=== PATIENT | male | born 1960 | race American Indian/Alaskan Native ===

== ENCOUNTER 2017-05-19 17:40 | Emergency (ER) | payer MEDICAID ==
[2017-05-19 19:45] LABS: Hematocrit 38.4 % (35.5-45.6); Hemoglobin 12.4 gm/dl (11.8-15.2); Mean Corpuscular HGB Conc 32 % (32-34); Mean Corpuscular Hemoglobin 26 pg (28-32); Mean Corpuscular Volume 79 fl (84-94); Platelet Count 225 K/mm3 (140-440); Red Blood Count 4.83 M/mm3 (3.65-5.03); Red Cell Distribution Width 15.5 % (13.2-15.2); White Blood Count 4.4 K/mm3 (4.5-11.0)
[2017-05-19 20:01] LABS: Anion Gap 17 mmol/L; BUN/Creatinine Ratio 13; Blood Urea Nitrogen 16 mg/dL (9-20); Calcium 8.9 mg/dL (8.4-10.2); Carbon Dioxide 27 mmol/L (22-30); Chloride 94.7 mmol/L (98-107); Potassium 4.5 mmol/L (3.6-5.0); Sodium 134 mmol/L (137-145)
[2017-05-19 20:04] LABS: Glucose 572 mg/dL (75-100)
[2017-05-19] MEDS ORDERED: NACL 0.9% 1000 ML 1,000 ML IV ONE (21:57)
--- NOTE | 2017-05-19 22:01 | Emergency Department Report ---
HPI - General Chief Complaint: Wound/Laceration Time Seen by Provider: 05/19/17 21:20 - HPI HPI: This is a 56-year-old male who presents to the emergency department with complaint of an ulcer on the right second toe and some small ones on the foot. He has a history of left below-knee amputation. The patient denies any significant discomfort or any fever but says that due to his history his daughter "made me come in" and she drove him in. He has a history of insulin-dependent diabetes, GERD. He does not have a primary care physician. No recent travel or sick contacts. He has not taken anything for her symptoms prior to presentation. He admits that he is not fully compliant with his insulin. ED Past Medical Hx - Past Medical History Previous Medical History?: Yes Hx Hypertension: Yes Hx Diabetes: Yes Hx GERD: Yes Additional medical history: LLL amputaion,poor vision - Surgical History Past Surgical History?: No Additional Surgical History: LLLA - Social History Smoking Status: Former Smoker - Medications Home Medications: Home Medications Medication Instructions Recorded Confirmed Last Taken Type Sulfamethoxazole/Trimethoprim 1 each PO BID #14 tablet 05/20/17 Unknown Rx [Bactrim DS TAB] ED Review of Systems ROS: Stated complaint: RIGHT FOOT INJURY/PAIN Other details as noted in HPI Comment: All other systems reviewed and negative Constitutional: denies: chills, fever Eyes: denies: eye pain, eye discharge, vision change ENT: denies: ear pain, throat pain Respiratory: denies: cough, shortness of breath, wheezing Cardiovascular: denies: chest pain, palpitations Endocrine: increased thirst. denies: unexplained weight loss Gastrointestinal: denies: nausea, vomiting Genitourinary: denies: urgency, dysuria Musculoskeletal: denies: back pain, joint swelling, arthralgia Skin: lesions (right second toe ulcer). denies: pruritus Neurological: denies: headache, weakness, paresthesias Physical Exam - Physical Exam Vital Signs: Vital Signs 05/19/17 19:04 Temperature 99.1 F Pulse Rate 94 H Respiratory 18 Rate Blood Pressure 153/89 O2 Sat by Pulse 98 Oximetry Physical Exam: GENERAL: The patient is well-developed well-nourished. HENT: Normocephalic. Atraumatic. Patient has moist mucous membranes. EYES: Extraocular motions are intact. Pupils equal reactive to light bilaterally. NECK: Supple. Trachea is midline. CHEST/LUNGS: Clear to auscultation. There is no respiratory distress noted. HEART/CARDIOVASCULAR: Regular. There is no tachycardia. There is no gallop rub or murmur. ABDOMEN: Abdomen is soft, nontender. Patient has normal bowel sounds. There is no abdominal distention. SKIN: There is a small ulcer to the pad of the right second toe. There does not appear to be any surrounding erythema and there is no bleeding, weeping or drainage. NEURO: The patient is awake, alert, and oriented. The patient is cooperative. The patient has no focal neurologic deficits. The patient has normal speech. MUSCULOSKELETAL: There is no tenderness or deformity. Chronic left below knee amputation. There is no evidence of acute injury. ED Course Vital Signs 05/19/17 19:04 Temperature 99.1 F Pulse Rate 94 H Respiratory 18 Rate Blood Pressure 153/89 O2 Sat by Pulse 98 Oximetry ED Medical Decision Making - Lab Data Result diagrams: 05/19/17 19:28 05/19/17 19:28 - Radiology Data Radiology results: image reviewed interpreted by me: X-ray of the toes of the right foot does not show any fracture, dislocation or any signs of osteomyelitis. - Medical Decision Making The patient does have a small ulcer to the right second toe. X-ray was done but it is not showing any signs of osteomyelitis and there is no signs of any cellulitis. The CBC did not show any leukocytosis. Patient does show a very elevated blood sugar of about 550. There is no elevated anion gap and there is no venous acidosis and therefore the patient does not appear to be in diabetic ketoacidosis. An IV was placed and the patient was given IV insulin and a liter of IV fluid. Upon reevaluation his blood sugar came down to about 180. Vital signs stable. His course. He did have some hypertension but it came down to a reasonable level without any further medication. He appears safe for discharge home at this time. He was given human service specialist for the toe ulcer and because he is diabetic and needs good follow-up. He has been given a referral for primary care. He has been encouraged to be more compliant with his insulin and do blood sugar checks and we discussed dietary changes. He was placed on antibiotics to make sure the ulcer does not worsen or return in 2 abscess or worsening infection. He will return to the ER with any worsening of symptoms or any acute distress. Discharge instructions were given while in the emergency department and all his questions have been answered. - Differential Diagnosis ulcer, osteomyelitis, diabetic ketoacidosis, HHNK Critical Care Time: No Critical care attestation.: If time is entered above; I have spent that time in minutes in the direct care of this critically ill patient, excluding procedure time. ED Disposition Clinical Impression: Hyperglycemia due to type 1 diabetes mellitus Hypertension Qualifiers: Hypertension type: essential hypertension Qualified Code(s): I10 - Essential ( primary) hypertension Toe ulcer due to DM Qualifiers: Diabetes mellitus type: type 1 Laterality: right Non-pressure ulcer stage: unspecified non-pressure ulcer stage Qualified Code(s): E10.621 - Type 1 diabetes mellitus with foot ulcer Disposition: TO HOME OR SELFCARE Is pt being admited?: No Condition: Stable Instructions: Diabetic Foot Ulcers (ED), Hypertension (ED), Diabetic Hyperglycemia (ED) Additional Instructions: Please follow up with a primary care physician as well as a human service specialist and I will give the referrals for both. Take the antibiotics as prescribed. Take your insulin regularly and check your blood sugar. Try to stay away from foods that are high in sugar, carbohydrates and starches. Return to the emergency Department with any worsening of your symptoms or any acute distress. Prescriptions: Sulfamethoxazole/Trimethoprim [Bactrim DS TAB] 1 each PO BID #14 tablet Referrals: GUNJAN LANIER MD [Primary Care Provider] - 3-5 Days VIKTORIA CARREON MD [Staff Physician] - 3-5 Days MARTINEZ CISNEROS MD [Staff Physician] - 3-5 Days [facility] [Outside] - 3-5 Days Time of Disposition: 01:16
[2017-05-20 00:42] LABS: Bilirubin,Urine NEG (Negative); Blood,Urine SM (Negative); Ketones,Urine NEG (Negative); Leukocyte Esterase,Urine NEG (Negative); Nitrite,Urine NEG (Negative); Urobilinogen,Urine < 2.0 mg/dL (<2.0); WBC,Urine < 1.0 /HPF (0.0-6.0)
[2017-05-20] MEDS ORDERED: APRESOLINE IV ONE (01:13)
[2017-05-20] MEDS ORDERED: BACTRIM DS PO ONE (01:15)
[2017-05-20 01:22] VITALS: BP 144/79
--- NOTE | 2017-05-20 10:31 | XRay Report ---
RIGHT TOES, 3 VIEWS History: Right second toe pain, concern for infection. Findings: No comparison. There is normal bone mineralization. No evidence for fracture, erosive joint pathology or bony destruction. The second toe is within normal limits. No signs of osteomyelitis on x-ray. Impression: Unremarkable right toes.
== END 2017-05-20 01:46 | disposition home or self-care (01) ==
LOC: ED 17:40
DX: E10.65 Type 1 diabetes mellitus with hyperglycemia (principal); E10.621 Type 1 diabetes mellitus with foot ulcer; I10 Essential (primary) hypertension; K21.9 Gastro-esophageal reflux disease without esophagitis; Z87.891 Personal history of nicotine dependence
CPT/HCPCS: 36415; 73660; 80048; 81001; 82805; 82962; 85027; 96361; 96374; 99284; J7030; J1815

== ENCOUNTER 2018-11-18 11:14 | Inpatient (IN) | payer MEDICAID ==
[2018-11-18 11:53] LABS: Basophils # (Auto) 0.1 K/mm3 (0.0-0.1); Basophils % (Auto) 1.1 % (0.0-1.8); Eosinophils # (Auto) 0.4 K/mm3 (0.0-0.4); Hematocrit 32.2 % (35.5-45.6); Hemoglobin 10.7 gm/dl (11.8-15.2); Lymphocytes # (Auto) 1.3 K/mm3 (1.2-5.4); Lymphocytes % (Auto) 25.9 % (13.4-35.0); Mean Corpuscular HGB Conc 33 % (32-34); Mean Corpuscular Volume 74 fl (84-94); Monocytes # (Auto) 0.7 K/mm3 (0.0-0.8); Monocytes % (Auto) 13.3 % (0.0-7.3); Platelet Count 260 K/mm3 (140-440); Red Blood Count 4.34 M/mm3 (3.65-5.03); Red Cell Distribution Width 18.5 % (13.2-15.2)
--- NOTE | 2018-11-18 11:57 | XRay Report ---
PROCEDURE: XR CHEST ROUTINE 2V TECHNIQUE: PA and lateral chest radiographs were obtained. HISTORY: Dyspnea COMPARISONS: None. FINDINGS: No mediastinal shift. Cardiac silhouette is not enlarged. No pneumothorax. Bilateral pleural effusi ons and lower lung airspace disease. No acute skeletal finding. IMPRESSION: Bibasilar airspace disease and pleural effusions. Radiographic follow-up to resolution is recommended . This document is electronically signed by Freddy Figueredo MD., Nov 18 2018 11:55:36 AM ET
[2018-11-18 12:03] LABS: INR 0.95 (0.87-1.13)
[2018-11-18 12:04] LABS: Partial Thromboplastin Time 28.2 Sec. (24.2-36.6)
[2018-11-18 12:16] LABS: Calcium 8.1 mg/dL (8.4-10.2)
--- NOTE | 2018-11-18 12:20 | Emergency Department Report ---
ED Shortness of Breath HPI - General Chief Complaint: Dyspnea/Respdistress Stated Complaint: SOB Time Seen by Provider: 11/18/18 11:19 Source: EMS Mode of arrival: Stretcher Limitations: No Limitations - History of Present Illness Initial Comments: Patient is a 58-year-old -[place] male with past medical history of hypertension diabetes. Left below-knee" who is presenting with shortness of breath. Patient states he's had issues with shortness of breath for approximately one week. Patient states that he did see his primary care physician several days ago and did mention this and his primary care physician wanted him to come to the hospital at that time but he declined. He recently restarted on Lasix for some right lower extremity edema. Patient states he's had this in the past. Patient denies having a diagnosis of congestive heart failure. Patient feels as though he may have pneumonia he's had a nonproductive cough for the last several days. Patient also has some orthopnea as well. Patient denies any chest pain nausea vomiting or diarrhea. Patient states that he has had some chills. Consistency: constant Improves With: nothing Worsens With: lying flat, exertion, movement, coughing - Related Data Previous Rx's Medication Instructions Recorded Last Taken Type Sulfamethoxazole/Trimethoprim 1 each PO BID #14 tablet 05/20/17 Unknown Rx [Bactrim DS TAB] Allergies Allergy/AdvReac Type Severity Reaction Status Date / Time No Known Allergies Allergy Unverified 05/19/17 19:06 ED Review of Systems ROS: Stated complaint: SOB Other details as noted in HPI Comment: All other systems reviewed and negative ED Past Medical Hx - Past Medical History Hx Hypertension: Yes Hx Diabetes: Yes Hx GERD: Yes Additional medical history: LLL amputaion,poor vision - Surgical History Additional Surgical History: LLLA - Medications Home Medications: Home Medications Medication Instructions Recorded Confirmed Last Taken Type Sulfamethoxazole/Trimethoprim 1 each PO BID #14 tablet 05/20/17 Unknown Rx [Bactrim DS TAB] ED Physical Exam - General Limitations: No Limitations General appearance: alert, in no apparent distress - Head Head exam: Present: atraumatic, normocephalic - Eye Eye exam: Present: normal appearance - ENT ENT exam: Present: mucous membranes moist - Neck Neck exam: Present: normal inspection - Respiratory Respiratory exam: Present: normal lung sounds bilaterally, rales, rhonchi (bibasilar). Absent: respiratory distress, wheezes, chest wall tenderness - Cardiovascular Cardiovascular Exam: Present: regular rate, normal rhythm, normal heart sounds. Absent: systolic murmur, diastolic murmur, rubs, gallop - GI/Abdominal GI/Abdominal exam: Present: soft, normal bowel sounds. Absent: distended, tenderness, guarding - Rectal Rectal exam: Present: deferred - Extremities Exam Extremities exam: Present: normal inspection, other (H and with a left below- knee amputation with prosthesis. His right lower extremity does show 3+ edema and hyperpigmentation from the midcalf down) - Back Exam Back exam: Present: normal inspection - Neurological Exam Neurological exam: Present: alert, oriented X3 - Psychiatric Psychiatric exam: Present: normal affect, normal mood - Skin Skin exam: Present: warm, dry, intact, normal color. Absent: rash ED Course Vital Signs 11/18/18 13:01 Temperature 98.9 F Pulse Rate 90 Respiratory 20 Rate Blood Pressure 182/102 [Right] O2 Sat by Pulse 92 Oximetry ED Medical Decision Making - Lab Data Result diagrams: 11/18/18 11:36 11/18/18 11:36 - EKG Data -: EKG Interpreted by Ct - EKG Data 11/18/18 13:06 EKG shows sinus rhythm, rate of 85 axis normal intervals are normal. There is evidence of anterior infarct which is old as there are Q waves present in V1 through V3 There are T-wave inversions laterally. There are no acute ST elevations or depressions. Time of interpretation is 1146. - Radiology Data [facility] [address] [place] [address] XRay Report Signed Patient: SURENDRA MILLER MR#: [id number] : Acct:[id number] Age/Sex: 58 / M ADM Date: 11/18/18 Loc: ED Attending Dr: Ordering Physician: MAHOGANY HUNTER MD Date of Service: 11/18/18 Procedure(s): XR chest routine 2V Accession Number(s): [id number] cc: MAHOGANY HUNTER MD Fluoro Time In Minutes: PROCEDURE: XR CHEST ROUTINE 2V TECHNIQUE: PA and lateral chest radiographs were obtained. HISTORY: Dyspnea COMPARISONS: None. FINDINGS: No mediastinal shift. Cardiac silhouette is not enlarged. No pneumothorax. Bilateral pleural effusions and lower lung airspace disease. No acute skeletal finding. IMPRESSION: Bibasilar airspace disease and pleural effusions. Radiographic follow-up to resolution is recommended. This document is electronically signed by Freddy Omer MD., Nov 18 2018 11:55:36 AM ET Transcribed By: MELINDA Dictated By: FREDDY OMER MD Electronically Authenticated By: FREDDY OMER MD Signed Date/Time: 11/18/18 1157 DD/ 1126 TD/TT: 11/18/18 1126 - Medical Decision Making Patient is a 58-year-old Male who is presenting with dyspnea with exertion shortness of breath. The patient was started on to his laxatives O2 sats 99%. Patient did show some mild hypertension was given labetalol. X-ray shows bilateral pleural effusions likely secondary to CHF as his BNP is elevated. Patient is given Lasix and has started to diurese. Patient does not have a ec hocardiogram and does not per history have a history of echocardiogram and he can remember. Patient will be admitted to the hospitalist service at this time. Critical Care Time: Yes (30) Critical care attestation.: If time is entered above; I have spent that time in minutes in the direct care of this critically ill patient, excluding procedure time. ED Disposition Clinical Impression: Acute exacerbation of CHF (congestive heart failure) Qualifiers: Heart failure type: unspecified Qualified Code(s): I50.9 - Heart failure, unspecified Disposition: OP ADMIT IP TO THIS HOSP Is pt being admited?: Yes Does the pt Need Aspirin: No Condition: Stable Time of Disposition: 13:09
[2018-11-18] MEDS ORDERED: LASIX IV ONE (12:59)
[2018-11-18] MEDS ORDERED: NORMODYNE IV ONE (13:05)
--- NOTE | 2018-11-18 13:35 | History and Physical Report ---
History of Present Illness Chief complaint: I cant catch my breath History of present illness: 58 YO Male with HTN, DM, GERD presents to ED for evaluation. Pt states that he has experienced shortness of breath over the past 1 week, with worsening symptoms over the past 3 days. Pt acknowledges decreased exercise tolerance, dypsnea on exertion, dypsnea at rest, Orthopnea/PND, leg swelling, and elevated SBP. Pt was seen an evaluated by his PCP over the past 1 week, and was instructed to seek further medical care at the time. Pt returned home, with as the aforementioned symptoms worsened- the patient decided to seek further care. EMS notified, and upon arrival the patient was found to be in distress. Pt transported to [facility]. Pt seen and evaluated in ED and found to have symptoms consistent with CHF Decompensation, ARF, as well as Hypertensive Urgency. Pt denies fever, chills, CP, Palpitations, NVD, Trauma, Skin Rash, BRBPR, productive cough, unintentional weight loss, night sweats, prolonged travel/immobility, Individual/Family history of DVT/PT/Blood Clotting Disorder, unilateral leg swelling, hemoptysis, or recent ill contacts. Pt admitted to telemetry. Cardiology consulted in ED. Nephrology consulted in ED. Past History Past Medical History: diabetes, GERD, hypertension Past Surgical History: No surgical history, Other (reviewedd) Social history: . denies: smoking, alcohol abuse, prescription drug abuse Family history: diabetes, hypertension Medications and Allergies Allergies Allergy/AdvReac Type Severity Reaction Status Date / Time No Known Allergies Allergy Unverified 05/19/17 19:06 Home Medications Medication Instructions Recorded Confirmed Last Taken Type Sulfamethoxazole/Trimethoprim 1 each PO BID #14 tablet 05/20/17 Unknown Rx [Bactrim DS TAB] Review of Systems Constitutional: no weight loss, no weight gain, no fever, no chills Ears, nose, mouth and throat: no ear pain, no ear discharge, no tinnitis, no decreased hearing, no nose pain Cardiovascular: orthopnea, shortness of breath, dyspnea on exertion, paroxysmal nocturnal dyspnea, high blood pressure, leg edema, decreased exercise tolerance, no palpitations, no syncope Respiratory: no cough, no cough with sputum, no excessive sputum, no hemoptysis Gastrointestinal: no nausea, no vomiting, no diarrhea, no constipation, no change in bowel habits Genitourinary Male: no hematuria, no flank pain, no discharge, no urinary frequency, no urinary hesitancy Rectal: no pain, no incontinence, no bleeding Musculoskeletal: no neck stiffness, no neck pain, no shooting arm pain, no arm numbness/tingling Integumentary: no rash, no pruritis, no redness, no sores, no wounds, no jaundice Neurological: no head injury, no paralysis, no parathesias, no tingling, no seizures, no syncope Psychiatric: no anxiety, no memory loss, no change in sleep habits, no sleep disturbances, no insomnia, no hypersomnia, no change in appetite Endocrine: no cold intolerance, no heat intolerance, no polyphagia, no excessive thirst, no polydipsia, no polyuria, no nocturia Hematologic/Lymphatic: no easy bruising, no easy bleeding, no lymphadenopathy, no lymphedema Allergic/Immunologic: no urticaria, no persistent infections, no anaphylaxis, no angioedema Exam - Constitutional Vitals: Temp Pulse Resp BP Pulse Ox 98.9 F 90 20 182/102 92 11/18/18 13:01 11/18/18 13:01 11/18/18 13:01 11/18/18 13:01 11/18/18 13:01 General appearance: Present: mild distress - EENT Eyes: Present: PERRL ENT: hearing intact, clear oral mucosa - Neck Neck: Present: supple, normal ROM - Respiratory Respiratory effort: normal Respiratory: bilateral: CTA - Cardiovascular Heart Sounds: Present: S1 & S2. Absent: rub, click - Extremities Extremities: pulses symmetrical Extremity abnormal: edema Peripheral Pulses: within normal limits - Abdominal General gastrointestinal: Present: soft, non-tender, non-distended, normal bowel sounds Male genitourinary: Present: normal - Integumentary Integumentary: Present: clear, warm, dry - Musculoskeletal Musculoskeletal: gait normal, strength equal bilaterally - Psychiatric Psychiatric: appropriate mood/affect, intact judgment & insight - Neurologic Neurologic: CNII-XII intact, moves all extremities Results - Labs CBC & Chem 7: 11/18/18 11:36 11/18/18 11:36 Labs: Abnormal lab results 11/18/18 11/18/18 Range/Units 11:36 11:36 Hgb 10.7 L (11.8-15.2) gm/dl Hct 32.2 L (35.5-45.6) % MCV 74 L (84-94) fl MCH 25 L (28-32) pg RDW 18.5 H (13.2-15.2) % [place] % (Auto) 13.3 H (0.0-7.3) % Eos % (Auto) 8.0 H (0.0-4.3) % Carbon Dioxide 21 L (22-30) mmol/L BUN 26 H (9-20) mg/dL Creatinine 2.6 H (0.8-1.5) mg/dL Glucose 154 H (75-100) mg/dL Calcium 8.1 L (8.4-10.2) mg/dL NT-Pro-B Natriuret Pep 7846 H (0-900) pg/mL Assessment and Plan - Patient Problems (1) CHF (congestive heart failure) Current Visit: Yes Status: Acute Qualifiers: Heart failure type: systolic Heart failure chronicity: acute Qualified Code(s): I50.21 - Acute systolic (congestive) heart failure Plan to address problem: Admit to telemetry, cardiology consulted in ED, Echo, strict I/O, daily weight, bnp, VQ scan, supplemental oxygen, thyroid panel, magnesium level, afterload reduction, diuresis, monitor uop q shift. (2) ARF (acute renal failure) with tubular necrosis Current Visit: Yes Status: Acute Plan to address problem: Urinalysis, monitor uop q shift, strict I/O, bmp to monitor serum creatnine, Nephrology consulted, renal ultrasound, urine electrolytes, (3) Hypertensive urgency, malignant Current Visit: Yes Status: Acute Plan to address problem: monitor BP q shift, continue medical management, Lisinopril and metoprolol, IV hydralazine prn for SBP >155. (4) Diabetes Current Visit: Yes Status: Acute Plan to address problem: ADA diet, insulin, accu check, hypoglycemia protocol (5) DVT prophylaxis Current Visit: Yes Status: Acute Plan to address problem: SCD to BLE while in bed,
[2018-11-18] MEDS ORDERED: ZOFRAN IV PRN (13:41)
[2018-11-18] MEDS ORDERED: SODIUM CHLORIDE FLUSH SYRINGE 10 ML IV PRN (13:41)
[2018-11-18] MEDS ORDERED: APRESOLINE IV PRN (15:55)
[2018-11-18] MEDS ORDERED: D50W (25GM) Syringe IV PRN (16:00)
[2018-11-18] MEDS ORDERED: MORPHINE IV PRN (16:04)
[2018-11-18] MEDS: HumuLIN R SUB-Q SCH ×2 (16:20→22:13)
--- NOTE | 2018-11-18 16:24 | Nuclear Medicine Report ---
PROCEDURE: NM LUNG SCAN PERF/VENT TECHNIQUE: 5.6 mCi Tc-99m MAA was injected IV for pulmonary perfusion imaging in multiple projection s. 12.8 mCi Xenon-133 was inhaled for pulmonary ventilation imaging in multiple projections. HISTORY: Dyspnea COMPARISONS: Chest x-ray November 18, 2018. FINDINGS: Ventilation: Uniform. Perfusion: Small subsegmental perfusion deficits in both lungs. Unmatched. Prominent cardiac silhouette. Blunted bilateral costophrenic angles suggests effusion. IMPRESSION: * Based on the PIOPED study, findings represent low probability for PE. * Suspect cardiomegaly. * Possible bilateral pleural effusions. This document is electronically signed by Kelechi Oliver MD., Nov 18 2018 04:22:20 PM ET
[2018-11-18] MEDS: PERCOCET 5/325 PO PRN ×2 (16:34→22:31)
[2018-11-18] MEDS ORDERED: PERCOCET 5/325 ONE (16:34)
[2018-11-18] MEDS: PEPCID PO SCH (16:35)
[2018-11-18] MEDS ORDERED: PEPCID ONE (16:35)
[2018-11-18 17:04] LABS: Free T4 (Free Thyroxine) 0.96 ng/dL (0.76-1.46)
[2018-11-18] MEDS: LASIX PO SCH (18:07)
[2018-11-18] MEDS ORDERED: PEPCID PO SCH (22:00)
[2018-11-18] MEDS: SODIUM CHLORIDE FLUSH SYRINGE 10 ML IV SCH (22:13)
[2018-11-18] MEDS: HEPARIN SUB-Q SCH (22:14)
[2018-11-18] MEDS: LOPRESSOR PO SCH (22:14)
[2018-11-18] MEDS: TESSALON PERLES PO SCH (22:17)
[2018-11-19] MEDS: TYLENOL PO PRN ×3 (00:36→22:23)
[2018-11-19 01:40] LABS: Creatinine,Urine 112.6 mg/dL (0.1-20.0)
[2018-11-19] MEDS ORDERED: LEVAQUIN 750MG/150ML 750 MG/150 ML BAG IV ONE (01:48)
[2018-11-19 01:53] LABS: Bacteria,Urine 1+ /HPF (Negative); Bilirubin,Urine NEG (Negative); Blood,Urine MOD (Negative); Color,Urine Yellow (Yellow); Hyaline Casts,Urine 13 /LPF; Mucus,Urine FEW /HPF; Protein,Urine >500 mg/dL (Negative); Urobilinogen,Urine < 2.0 mg/dL (<2.0)
[2018-11-19] MEDS: PERCOCET 5/325 PO PRN ×3 (04:05→20:30)
[2018-11-19] MEDS: LASIX PO SCH ×2 (05:33→17:34)
[2018-11-19] MEDS: TESSALON PERLES PO SCH ×3 (05:33→22:21)
[2018-11-19 06:06] LABS: Calcium 7.9 mg/dL (8.4-10.2)
[2018-11-19 06:19] LABS: Hematocrit 29.2 % (35.5-45.6); Hemoglobin 9.5 gm/dl (11.8-15.2); Mean Corpuscular HGB Conc 33 % (32-34); Mean Corpuscular Volume 72 fl (84-94); Platelet Count 235 K/mm3 (140-440); Red Blood Count 4.09 M/mm3 (3.65-5.03); Red Cell Distribution Width 17.6 % (13.2-15.2)
[2018-11-19] MEDS: HumuLIN R SUB-Q SCH ×4 (07:35→22:22)
[2018-11-19] MEDS ORDERED: ZESTRIL PO SCH (10:00)
[2018-11-19] MEDS: PEPCID PO SCH (10:09)
[2018-11-19] MEDS: HEPARIN SUB-Q SCH ×2 (10:10→22:22)
[2018-11-19] MEDS: LOPRESSOR PO SCH ×2 (10:10→22:24)
[2018-11-19] MEDS: SODIUM CHLORIDE FLUSH SYRINGE 10 ML IV SCH ×2 (10:11→22:22)
--- NOTE | 2018-11-19 10:19 | Consultation ---
History of Present Illness - Reason for Consult Consult date: 11/19/18 acute renal failure, chronic renal failure - History of Present Illness The patient is a 58 YO male with history significant for HTN (20+ yrs), DM (20+ yrs), GERD and CKD who presented to [facility] ED with c/o shortness of breath at rest over the past 1 week. The symptoms gotten worse for about 3 days. Pt also admits having MCALLISTER, decreased exercise tolerance, Orthopnea/PND, leg swelling and dry cough. Pt was admitted with suspected CHF Decompensation, SATYA, as well as Hypertensive Urgency. Pt denies fever, chills, CP, N, V, D, abd pain, Skin Rash, hemoptysis, dizziness, syncope, NSAID intake, dysuria or hematuria. Crea tinine was 2.6 on admission, increased from 1.2 in 2017. Nephrology was consulted for further evaluation. Past History Past Medical History: diabetes, GERD, hypertension Past Surgical History: No surgical history, Other (reviewedd) Social history: . denies: smoking, alcohol abuse, prescription drug abuse Family history: diabetes, hypertension Medications and Allergies Allergies Allergy/AdvReac Type Severity Reaction Status Date / Time No Known Allergies Allergy Unverified 05/19/17 19:06 Home Medications Medication Instructions Recorded Confirmed Last Taken Type Sulfamethoxazole/Trimethoprim 1 each PO BID #14 tablet 05/20/17 11/18/18 Unknown Rx [Bactrim DS TAB] Furosemide [Lasix] 80 mg PO DAILY 11/18/18 11/19/18 11/18/18 10:00 History Insulin Glargine [Lantus] 10 unit SUB-Q QHS 11/18/18 11/18/18 1 Week Ago History ~11/11/18 Ranitidine HCl [Zantac] 150 mg PO DAILY 11/18/18 11/19/18 11/18/18 10:00 History Timolol 0.5% [Timoptic] 1 drops OP BID 11/18/18 11/18/18 11/18/18 10:00 History Active Meds: Active Medications Acetaminophen (Tylenol) 650 mg PO Q4H PRN PRN Reason: Pain MILD(1-3)/Fever >100.5/YI Last Admin: 11/19/18 00:36 Dose: 650 mg Documented by: Benzonatate (Tessaltorres Cotto) 200 mg PO Q8HR [facility] Last Admin: 11/19/18 05:33 Dose: 200 mg Documented by: Dextrose (D50w (25gm) Syringe) 50 ml IV PRN PRN PRN Reason: Hypoglycemia Famotidine (Pepcid) 20 mg PO QDAY [facility] Last Admin: 11/19/18 10:09 Dose: 20 mg Documented by: Furosemide (Lasix) 20 mg PO BID@0600,1800 [facility] Last Admin: 11/19/18 05:33 Dose: 20 mg Documented by: Heparin Sodium (Porcine) (Heparin) 5,000 unit SUB-Q Q12HR [facility] Last Admin: 11/19/18 10:10 Dose: 5,000 unit Documented by: Hydralazine HCl (Apresoline) 10 mg IV Q6HR PRN PRN Reason: Hypertension Levofloxacin/Dextrose (Levaquin 500mg/100ml) 500 mg in 100 mls @ 100 mls/hr IV Q48HR [facility] Insulin Human Regular (Humulin R) 0 units SUB-Q ACHS [facility]; Protocol Last Admin: 11/19/18 07:35 Dose: Not Given Documented by: Lisinopril (Zestril) 2.5 mg PO QDAY [facility] Last Admin: 11/19/18 10:10 Dose: 2.5 mg Documented by: Metoprolol Tartrate (Lopressor) 12.5 mg PO BID [facility] Last Admin: 11/19/18 10:10 Dose: 12.5 mg Documented by: Morphine Sulfate (Morphine) 2 mg IV Q4H PRN PRN Reason: Pain, Moderate (4-6) Ondansetron HCl (Zofran) 4 mg IV Q8H PRN PRN Reason: Nausea And Vomiting Oxycodone/Acetaminophen (Percocet 5/325) 1 tab PO Q6H PRN PRN Reason: Pain, Moderate (4-6) Last Admin: 11/19/18 04:05 Dose: 1 tab Documented by: Sodium Chloride (Sodium Chloride Flush Syringe 10 Ml) 10 ml IV BID [facility] Last Admin: 11/19/18 10:11 Dose: 10 ml Documented by: Sodium Chloride (Sodium Chloride Flush Syringe 10 Ml) 10 ml IV PRN PRN PRN Reason: LINE FLUSH Review of Systems Constitutional: no weight loss, no weight gain, no fever, no chills, no anorexia, no weakness, no poor appetite Cardiovascular: orthopnea, edema, shortness of breath, dyspnea on exertion, high blood pressure, leg edema, decreased exercise tolerance, no chest pain, no palpitations, no syncope, no lightheadedness Respiratory: cough, shortness of breath, dyspnea on exertion, no excessive sputum, no hemoptysis, no home oxygen Gastrointestinal: no abdominal pain, no nausea, no vomiting, no diarrhea, no hematemesis, no melena, no hematochezia Genitourinary Male: no dysuria, no hematuria Rectal: no bleeding Musculoskeletal: prior amputations, no low back pain, no redness of joints Integumentary: no rash, no jaundice Neurological: no paralysis, no weakness, no seizures, no syncope, no convulsions, no aphasia, no change in speech, no change in mentation, no confusion, no memory loss Exam - Vital Signs Vital signs: Vital Signs Resp 18 11/18/18 12:15 - General Appearance General appearance: well-developed, well-nourished, appears stated age, other (not in distress) EENT: ATNC, PERRL, mucous membranes moist, hearing intact, vision intact Neck: Present: neck supple, trachea midline Respiratory: Rales Heart: regular, S1S2, no murmurs Gastrointestinal: Present: normoactive bowel sounds. Absent: tenderness, distended Integumentary: no rash, warm and dry Neurologic: no focal deficit, no asterixis, alert and oriented x3 Musculoskeletal: Present: other (L BKA, R 1st amputated, R LE trace edema noted) Results - Lab Results 11/19/18 04:54 11/19/18 04:54 Most recent lab results Calcium 7.9 mg/dL (8.4-10.2) L 11/19/18 04:54 Magnesium 1.90 mg/dL (1.7-2.3) 11/18/18 16:13 112.6 mg/dL (0.1-20.0) H 11/19/18 01:10 103 mmol/L 11/19/18 01:10 - Image Kidney/bladder ultrasound: pending Assessment and Plan 1. Acute kidney injury: Satya superimposed on CKD in the setting of CHF exacerbation. Urine studies and Renal US. CKD stage 4 is not ruled out. Monitor renal function. Renal prognosis is guarded. Avoid nephrotoxic agents. Meds dosage based on GFR. 2. FEN: Volume overload, diuretics. Monitor lytes. 3. CHF exacerbation. 4. Uncontrolled HTN: BP is better. 5. Anemia: POA. 5. DM-2.
--- NOTE | 2018-11-19 11:53 | Consultation ---
History of Present Illness Consult date: 11/19/18 Consult reason: congestive heart failure History of present illness: Patient is a 58 year old male with a history of hypertension, diabetes, chronic renal disease, PAD status post left BKA who presented with shortness of breath and coughs. Noted febrile in the emergency department. WBC is normal. Chest x- ray reports bibasilar airspace with pleural effusions. Ventilation perfusion reports a low probability for PE. Initial labs shows a creatinine of 2.4. There is also an elevation of pro-BNP suggestive of CHF. Cardiac consultation has been requested. Patient does not have a prior cardiac history and denies previous cardiac workup. He denies chest pain. An ECG is sinus rhythm with nonspecific Twave abnormalities. Past History Past Medical History: diabetes, GERD, hypertension, PVD, renal failure Past Surgical History: Other (left BKA) Social history: . denies: smoking, alcohol abuse, prescription drug abuse Family history: diabetes, hypertension Medications and Allergies Allergies Allergy/AdvReac Type Severity Reaction Status Date / Time No Known Allergies Allergy Unverified 05/19/17 19:06 Home Medications Medication Instructions Recorded Confirmed Last Taken Type Sulfamethoxazole/Trimethoprim 1 each PO BID #14 tablet 05/20/17 11/18/18 Unknown Rx [Bactrim DS TAB] Furosemide [Lasix] 80 mg PO DAILY 11/18/18 11/19/18 11/18/18 10:00 History Insulin Glargine [Lantus] 10 unit SUB-Q QHS 11/18/18 11/18/18 1 Week Ago History ~11/11/18 Ranitidine HCl [Zantac] 150 mg PO DAILY 11/18/18 11/19/18 11/18/18 10:00 History Timolol 0.5% [Timoptic] 1 drops OP BID 11/18/18 11/18/18 11/18/18 10:00 History Active Meds: Active Medications Acetaminophen (Tylenol) 650 mg PO Q4H PRN PRN Reason: Pain MILD(1-3)/Fever >100.5/YI Last Admin: 11/19/18 00:36 Dose: 650 mg Documented by: Benzonatate (Tessalon Perles) 200 mg PO Q8HR [facility] Last Admin: 11/19/18 05:33 Dose: 200 mg Documented by: Dextrose (D50w (25gm) Syringe) 50 ml IV PRN PRN PRN Reason: Hypoglycemia Famotidine (Pepcid) 20 mg PO QDAY [facility] Last Admin: 11/19/18 10:09 Dose: 20 mg Documented by: Furosemide (Lasix) 20 mg PO BID@0600,1800 [facility] Last Admin: 11/19/18 05:33 Dose: 20 mg Documented by: Heparin Sodium (Porcine) (Heparin) 5,000 unit SUB-Q Q12HR [facility] Last Admin: 11/19/18 10:10 Dose: 5,000 unit Documented by: Hydralazine HCl (Apresoline) 10 mg IV Q6HR PRN PRN Reason: Hypertension Levofloxacin/Dextrose (Levaquin 500mg/100ml) 500 mg in 100 mls @ 100 mls/hr IV Q48HR [facility] Insulin Human Regular (Humulin R) 0 units SUB-Q ACHS [facility]; Protocol Last Admin: 11/19/18 07:35 Dose: Not Given Documented by: Metoprolol Tartrate (Lopressor) 12.5 mg PO BID [facility] Last Admin: 11/19/18 10:10 Dose: 12.5 mg Documented by: Morphine Sulfate (Morphine) 2 mg IV Q4H PRN PRN Reason: Pain, Moderate (4-6) Ondansetron HCl (Zofran) 4 mg IV Q8H PRN PRN Reason: Nausea And Vomiting Oxycodone/Acetaminophen (Percocet 5/325) 1 tab PO Q6H PRN PRN Reason: Pain, Moderate (4-6) Last Admin: 11/19/18 10:29 Dose: 1 tab Documented by: Sodium Chloride (Sodium Chloride Flush Syringe 10 Ml) 10 ml IV BID [facility] Last Admin: 11/19/18 10:11 Dose: 10 ml Documented by: Sodium Chloride (Sodium Chloride Flush Syringe 10 Ml) 10 ml IV PRN PRN PRN Reason: LINE FLUSH Physical Examination Vital Signs Resp 18 11/18/18 12:15 General appearance: no acute distress HEENT: Positive: PERRL Neck: Positive: trachea midline Cardiac: Positive: Reg Rate and Rhythm Lungs: Positive: Decreased Breath Sounds Neuro: Positive: Grossly Intact Extremities: Present: +2 Edema, Other (left BKA) Results 11/19/18 04:54 11/19/18 04:54 Coagulation 11/18/18 Range/Units 11:36 PT 13.2 (12.2-14.9) Sec. INR 0.95 (0.87-1.13) APTT 28.2 (24.2-36.6) Sec. CBC 11/18/18 11/19/18 Range/Units 11:36 04:54 WBC 5.0 4.2 L (4.5-11.0) K/mm3 RBC 4.34 4.09 (3.65-5.03) M/mm3 Hgb 10.7 L 9.5 L (11.8-15.2) gm/dl Hct 32.2 L 29.2 L (35.5-45.6) % Plt Count 260 235 (140-440) K/mm3 Lymph # 1.3 (1.2-5.4) K/mm3 Morgan # 0.7 (0.0-0.8) K/mm3 Eos # 0.4 (0.0-0.4) K/mm3 Baso # 0.1 (0.0-0.1) K/mm3 Comprehensive Metabolic Panel 11/18/18 11/19/18 Range/Units 11:36 04:54 Sodium 139 141 (137-145) mmol/L Potassium 5.0 4.3 (3.6-5.0) mmol/L Chloride 105.7 107.0 (98-107) mmol/L Carbon Dioxide 21 L 22 (22-30) mmol/L BUN 26 H 23 H (9-20) mg/dL Creatinine 2.6 H 2.9 H (0.8-1.5) mg/dL Glucose 154 H 79 (75-100) mg/dL Calcium 8.1 L 7.9 L (8.4-10.2) mg/dL Assessment and Plan Shortness of breath coughs and fever associated Pleural effusions Hypertension Chronic renal failure Diabetes PVD s/p left BKA Plan: Echocardiogram for LVEF assessment.
--- NOTE | 2018-11-19 14:16 | Ultrasound Report ---
ULTRASOUND RENAL BILATERAL HISTORY: Acute renal failure. TECHNIQUE: transabdominal ultrasound with color Doppler interrogation. FINDINGS: The right kidney measures 10.4 x 4.8 x 5.4cm. Right renal cortex: 1.5cm. The left kidney measures 10.9 x 6.4 x 6.8cm. Left renal cortex: 2.1cm. The kidneys are normal size, contour and position. There is increased cortical echotexture bilaterally consistent with nonspecific renal parenchymal disease. A 1.5 cm cyst is identified at the inferior pole of the right kidney. There are 2 cysts in the superior left kidney measuring 2.0 cm and 3.0 cm. No evidence for mass, calculus or hydronephrosis. Images through the bladder are unremarkable. Small to medium bilateral pleural effusions are partially imaged. IMPRESSION: Nonspecific renal parenchymal disease. Bilateral simple renal cysts. Bilateral pleural effusions.
--- NOTE | 2018-11-19 14:27 | Progress Note ---
Assessment and Plan (1) CHF (congestive heart failure) Exacerbation Current Visit: Yes Status: Acute Qualifiers: Heart failure type: systolic Heart failure chronicity: acute Qualified Code(s): I50.21 - Acute systolic (congestive) heart failure Plan to address problem: Admit to telemetry, cardiology consulted in ED, Echo, strict I/O, daily weight, bnp, VQ scan, supplemental oxygen, thyroid panel, magnesium level, afterload reduction, diuresis, monitor uop q shift. Check ECHO results (2) ARF (acute renal failure) with tubular necrosis Current Visit: Yes Status: Acute Plan to address problem: Urinalysis, monitor uop q shift, strict I/O, bmp to monitor serum creatnine, Nephrology consulted, renal ultrasound, urine electrolytes, Probable underlying CKD (3) Hypertensive urgency, malignant Current Visit: Yes Status: Acute Plan to address problem: monitor BP q shift, continue medical management, Lisinopril and metoprolol, IV hydralazine prn for SBP >155 Immproved. (4) Diabetes Current Visit: Yes Status: Acute Plan to address problem: ADA diet, insulin, accu check, hypoglycemia protocol (5) DVT prophylaxis Current Visit: Yes Status: Acute Plan to address problem: SCD to BLE while in bed, Subjective Date of service: 11/19/18 Principal diagnosis: CHF exacerbation/BATOOL Interval history: Admitted for CHF exacerbation Symptomatically better Objective - Constitutional Vitals: Vital Signs - 12hr 11/19/18 11/19/18 11/19/18 04:05 04:19 04:20 Temperature 99.4 F Pulse Rate 83 Respiratory 18 20 Rate Blood Pressure 131/75 O2 Sat by Pulse 95 Oximetry 11/19/18 11/19/18 11/19/18 05:05 07:27 10:00 Temperature 99.1 F Pulse Rate 79 Respiratory 18 18 20 Rate Blood Pressure 125/68 O2 Sat by Pulse 93 96 Oximetry 11/19/18 11/19/18 10:10 11:38 Temperature 98.1 F Pulse Rate 79 81 Respiratory 16 Rate Blood Pressure 125/68 125/68 O2 Sat by Pulse 91 Oximetry General appearance: Present: no acute distress, well-nourished - EENT Eyes: PERRL, EOM intact ENT: hearing intact, clear oral mucosa Ears: bilateral: normal - Neck Neck: supple, normal ROM - Respiratory Respiratory effort: normal Respiratory: bilateral: CTA, rales - Breasts Breasts: normal - Cardiovascular Heart rate: 78 Rhythm: regular Heart Sounds: Present: S1 & S2. Absent: gallop, rub Extremities: pulses intact, No edema, normal color, Full ROM - Gastrointestinal General gastrointestinal: Present: soft, non-tender, non-distended, normal bowel sounds - Genitourinary Male genitourinary: normal - Integumentary Integumentary: clear, warm, dry - Musculoskeletal Musculoskeletal: 1, strength equal bilaterally - Neurologic Neurologic: moves all extremities - Psychiatric Psychiatric: memory intact, appropriate mood/affect, intact judgment & insight - Allied health notes Allied health notes reviewed: nursing, case management - Labs CBC & Chem 7: 11/20/18 05:27 11/20/18 05:27 Labs: Abnormal lab results 11/18/18 11/19/18 11/19/18 Range/Units 21:19 01:10 04:54 WBC 4.2 L (4.5-11.0) K/mm3 Hgb 9.5 L (11.8-15.2) gm/dl Hct 29.2 L (35.5-45.6) % MCV 72 L (84-94) fl MCH 23 L (28-32) pg RDW 17.6 H (13.2-15.2) % BUN (9-20) mg/dL Creatinine (0.8-1.5) mg/dL POC Glucose 176 H (70-105) Calcium (8.4-10.2) mg/dL Urine Creatinine 112.6 H (0.1-20.0) mg/dL 11/19/18 11/19/18 Range/Units 04:54 11:19 WBC (4.5-11.0) K/mm3 Hgb (11.8-15.2) gm/dl Hct (35.5-45.6) % MCV (84-94) fl MCH (28-32) pg RDW (13.2-15.2) % BUN 23 H (9-20) mg/dL Creatinine 2.9 H (0.8-1.5) mg/dL POC Glucose 121 H (70-105) Calcium 7.9 L (8.4-10.2) mg/dL Urine Creatinine (0.1-20.0) mg/dL
[2018-11-19 15:53] LABS: Creatinine,Urine 143.4 mg/dL (0.1-20.0)
[2018-11-19 16:08] LABS: Protein/Creatinine Ratio,Urine 0.63
[2018-11-20] MEDS: PERCOCET 5/325 PO PRN ×3 (05:43→18:13)
[2018-11-20] MEDS: TESSALON PERLES PO SCH ×3 (05:43→21:52)
[2018-11-20] MEDS: LASIX PO SCH ×2 (05:43→18:13)
[2018-11-20 06:32] LABS: Hematocrit 29.6 % (35.5-45.6); Hemoglobin 9.4 gm/dl (11.8-15.2); Mean Corpuscular HGB Conc 32 % (32-34); Mean Corpuscular Volume 72 fl (84-94); Platelet Count 233 K/mm3 (140-440); Red Cell Distribution Width 17.9 % (13.2-15.2)
[2018-11-20 06:55] LABS: Alanine Aminotransferase 8 units/L (7-56); Albumin 2.3 g/dL (3.9-5); BUN/Creatinine Ratio 10; Blood Urea Nitrogen 31 mg/dL (9-20); Calcium 7.5 mg/dL (8.4-10.2); Hemolysis Index 2; Iron 15 ug/dL (49-181); Total Iron Binding Capacity 138 mcg/dL (250-450)
[2018-11-20] MEDS: HumuLIN R SUB-Q SCH ×4 (08:09→21:54)
--- NOTE | 2018-11-20 08:48 | Progress Note ---
Assessment and Plan 1. Acute kidney injury: Satya superimposed on CKD in the setting of CHF exacerbation. Renal US was negative for hydro. Monitor renal function. Renal prognosis is guarded. Avoid nephrotoxic agents. Meds dosage based on GFR. 2. FEN: Volume overload, diuretics. Monitor lytes. 3. CHF exacerbation. 4. Uncontrolled HTN: BP is better. 5. Anemia: POA. 5. DM-2. Subjective Date of service: 11/20/18 Principal diagnosis: CHF exacerbation/SATYA Interval history: Patient was seen and examined at the bedside. Doing ok. Objective - Vital Signs Vital signs: Vital Signs - 12hr 11/19/18 11/19/18 11/19/18 21:30 22:23 22:24 Temperature Pulse Rate 83 Respiratory 20 18 Rate Blood Pressure 136/78 O2 Sat by Pulse Oximetry 11/19/18 11/20/18 11/20/18 23:35 04:06 05:43 Temperature 98.8 F 98.4 F Pulse Rate 78 69 Respiratory 20 20 18 Rate Blood Pressure 135/76 143/82 O2 Sat by Pulse 94 98 Oximetry 11/20/18 06:43 Temperature Pulse Rate Respiratory 20 Rate Blood Pressure O2 Sat by Pulse Oximetry - General Appearance General appearance: well-developed, well-nourished, appears stated age, other (not in distress) EENT: ATNC, PERRL, mucous membranes moist, hearing intact, vision intact Neck: supple Respiratory: Present: Rales Cardiology: regular, S1S2, no murmurs Integumentary: no rash Neurologic: no focal deficit, no asterixis, alert and oriented x3 Musculoskeletal: other (L BKA, R 1st toe amputated, R LE 1+ edema noted) Psychiatric: cooperative - Lab 11/20/18 05:27 11/22/18 05:54 Most recent lab results Calcium 7.5 mg/dL (8.4-10.2) L 11/20/18 05:27 Phosphorus 4.20 mg/dL (2.5-4.5) 11/20/18 05:27 Magnesium 1.90 mg/dL (1.7-2.3) 11/18/18 16:13 143.4 mg/dL (0.1-20.0) H 11/19/18 11:30 103 mmol/L 11/19/18 01:10 90 mg/dL (5-11.8) H 11/19/18 11:30 Medications & Allergies - Medications Allergies/Adverse Reactions: Allergies No Known Allergies Allergy (Unverified 05/19/17 19:06) Home Medications: Home Medications Medication Instructions Recorded Confirmed Last Taken Type Sulfamethoxazole/Trimethoprim 1 each PO BID #14 tablet 05/20/17 11/18/18 Unknown Rx [Bactrim DS TAB] Furosemide [Lasix TAB] 80 mg PO DAILY 11/18/18 11/19/18 11/18/18 10:00 History Insulin Glargine [Lantus VIAL] 10 unit SUB-Q QHS 11/18/18 11/18/18 1 Week Ago History ~11/11/18 Ranitidine HCl [Zantac] 150 mg PO DAILY 11/18/18 11/19/18 11/18/18 10:00 History Timolol 0.5% [Timoptic] 1 drops OP BID 11/18/18 11/18/18 11/18/18 10:00 History Carvedilol [Coreg] 6.25 mg PO BID #60 tablet 11/22/18 Unknown Rx Furosemide [Lasix TAB] 20 mg PO BID@0600,1800 #60 tablet 11/22/18 Unknown Rx Isosorb Dinit/Hydralazine [Bidil 1 each PO Q8HR #30 tablet 11/22/18 Unknown Rx 20/37.5MG] Active Medications: Generic Name Dose Route Start Last Admin Trade Name Freq PRN Reason Stop Dose Admin Acetaminophen 650 mg 11/18/18 13:41 11/19/18 22:23 Tylenol PO 650 mg Q4H PRN Administration Pain MILD(1-3)/Fever >100.5/YI Benzonatate 200 mg 11/18/18 22:00 11/20/18 05:43 Tessalon Perles PO 200 mg Q8HR [facility] Administration Dextrose 50 ml 11/18/18 16:00 D50w (25gm) Syringe IV PRN PRN Hypoglycemia Famotidine 20 mg 11/18/18 15:00 11/19/18 10:09 Pepcid PO 20 mg QDAY [facility] Administration Furosemide 20 mg 11/18/18 18:00 11/20/18 05:43 Lasix PO 20 mg BID@0600,1800 [facility] Administration Heparin Sodium (Porcine) 5,000 unit 11/18/18 22:00 11/19/18 22:22 Heparin SUB-Q 5,000 unit Q12HR [facility] Administration Hydralazine HCl 10 mg 11/18/18 15:55 Apresoline IV Q6HR PRN Hypertension Levofloxacin/Dextrose 500 mg in 100 mls @ 100 mls/hr 11/20/18 10:00 Levaquin 500mg/100ml IV Q48HR [facility] Insulin Human Regular 0 units 11/18/18 16:30 11/19/18 22:22 Humulin R SUB-Q Not Given ACHS [facility] Protocol Metoprolol Tartrate 12.5 mg 11/18/18 22:00 11/19/18 22:24 Lopressor PO 12.5 mg BID [facility] Administration Morphine Sulfate 2 mg 11/18/18 16:04 Morphine IV Q4H PRN Pain, Moderate (4-6) Ondansetron HCl 4 mg 11/18/18 13:41 Zofran IV Q8H PRN Nausea And Vomiting Oxycodone/Acetaminophen 1 tab 11/18/18 16:03 11/20/18 05:43 Percocet 5/325 PO 1 tab Q6H PRN Administration Pain, Moderate (4-6) Sodium Chloride 10 ml 11/18/18 22:00 11/19/18 22:22 Sodium Chloride Flush Syringe 10 Ml IV 10 ml BID [facility] Administration Sodium Chloride 10 ml 11/18/18 13:41 Sodium Chloride Flush Syringe 10 Ml IV PRN PRN LINE FLUSH
[2018-11-20 09:59] LABS: Basophils % (Manual) 0 % (0.0-1.8); Total Cells Counted 100
[2018-11-20 10:00] LABS: Anisocytosis 1+; Hypochromasia 1+; Platelet Estimate Consistent w Auto
--- NOTE | 2018-11-20 10:02 | Progress Note ---
Assessment and Plan Shortness of breath coughs and fever associated Pleural effusions Hypertension Chronic renal failure Diabetes PVD s/p left BKA Recommendations: Echocardiogram for left ventricular function assessment. Further cardiac ischemic workup will depend on clinical course. Subjective Date of service: 11/20/18 Principal diagnosis: CHF exacerbation/BATOOL Interval history: Patient has no complaints. Noted with fever overnight. Objective Vital Signs Temp Pulse Resp Resp BP BP Pulse Ox 11/20/18 06:43 20 11/20/18 05:43 18 11/20/18 04:06 98.4 F 69 20 143/82 98 11/19/18 23:35 98.8 F 78 20 135/76 94 11/19/18 22:24 83 136/78 11/19/18 22:23 18 11/19/18 21:30 20 11/19/18 20:46 18 11/19/18 20:45 18 97 11/19/18 20:30 20 11/19/18 20:05 100.0 F H 83 18 136/78 90 11/19/18 19:25 83 11/19/18 18:38 100.3 F H 11/19/18 17:29 101.1 F H 83 20 176/98 95 11/19/18 11:38 98.1 F 81 16 125/68 91 11/19/18 10:10 79 125/68 - Physical Examination General: No Apparent Distress HEENT: Positive: PERRL Neck: Positive: trachea midline Cardiac: Positive: Reg Rate and Rhythm Lungs: Positive: Decreased Breath Sounds Neuro: Positive: Grossly Intact Extremities: Present: +1 Edema, Other (left BKA) - Labs and Meds Cardiac Enzymes 11/20/18 Range/Units 05:27 AST 25 (5-40) units/L CBC 11/20/18 Range/Units 05:27 WBC 4.1 L (4.5-11.0) K/mm3 RBC 4.10 (3.65-5.03) M/mm3 Hgb 9.4 L (11.8-15.2) gm/dl Hct 29.6 L (35.5-45.6) % Plt Count 233 (140-440) K/mm3 Comprehensive Metabolic Panel 11/20/18 Range/Units 05:27 Sodium 141 (137-145) mmol/L Potassium 4.0 (3.6-5.0) mmol/L Chloride 106.9 (98-107) mmol/L Carbon Dioxide 25 (22-30) mmol/L BUN 31 H (9-20) mg/dL Creatinine 3.2 H (0.8-1.5) mg/dL Glucose 95 (75-100) mg/dL Calcium 7.5 L (8.4-10.2) mg/dL AST 25 (5-40) units/L ALT 8 (7-56) units/L Alkaline Phosphatase 69 (35-129) units/L Total Protein 5.6 L (6.3-8.2) g/dL Albumin 2.3 L (3.9-5) g/dL
[2018-11-20] MEDS: LEVAQUIN 500MG/100ML 500 MG/100 ML BAG IV SCH (10:07)
[2018-11-20] MEDS: PEPCID PO SCH (10:08)
[2018-11-20] MEDS: HEPARIN SUB-Q SCH ×2 (10:08→21:52)
[2018-11-20] MEDS: LOPRESSOR PO SCH (10:08)
--- NOTE | 2018-11-20 11:49 | Progress Note ---
Assessment and Plan Assessment and plan: --Acute systolic CHF (congestive heart failure) Exacerbation Current Visit: Yes Status: Acute Qualifiers: Heart failure type: systolic Heart failure chronicity: acute Qualified C ode(s): I50.21 - Acute systolic (congestive) heart failure Plan to address problem: Admit to telemetry, cardiology consulted in ED, Echo, strict I/O, daily weight, bnp, VQ scan, supplemental oxygen, thyroid panel, magnesium level, afterload reduction, diuresis, monitor uop q shift. Check ECHO results --ARF (acute renal failure) with tubular necrosis Current Visit: Yes Status: Acute Plan to address problem: Urinalysis, monitor uop q shift, strict I/O, bmp to monitor serum creatnine, Nephrology consulted, renal ultrasound, urine electrolytes, Probable underlying CKD -- Hypertensive urgency, malignant Current Visit: Yes Status: Acute Plan to address problem: monitor BP q shift, continue medical management, Lisinopril and metoprolol, IV hydralazine prn for SBP >155 Immproved. --Diabetes Current Visit: Yes Status: Acute Plan to address problem: ADA diet, insulin, accu check, hypoglycemia protocol -- DVT prophylaxis Current Visit: Yes Status: Acute Plan to address problem: SCD to BLE while in bed, Monitor closely and adjust management as needed History Interval history: Patient seen and examined medical records reviewed Patient feels slightly better no new complaints vital signs noted Hospitalist Physical - Constitutional Vitals: Temp Pulse Resp BP Pulse Ox 98.4 F 69 20 143/82 98 11/20/18 04:06 11/20/18 10:00 11/20/18 10:23 11/20/18 04:06 11/20/18 10:00 General appearance: Present: no acute distress, well-nourished - EENT Eyes: Present: PERRL, EOM intact - Neck Neck: Present: supple, normal ROM - Respiratory Respiratory effort: normal Respiratory: bilateral: diminished, rales, negative: rhonchi, wheezing - Cardiovascular Rhythm: regular Heart Sounds: Present: S1 & S2 - Extremities Extremities: no ischemia, No edema - Abdominal General gastrointestinal: soft, non-tender, non-distended, normal bowel sounds - Integumentary Integumentary: Present: clear, warm - Psychiatric Psychiatric: appropriate mood/affect, cooperative - Neurologic Neurologic: CNII-XII intact, moves all extremities Results - Labs CBC & Chem 7: 11/20/18 05:27 11/20/18 05:27 Labs: Laboratory Last Values WBC 4.1 K/mm3 (4.5-11.0) L 11/20/18 05:27 RBC 4.10 M/mm3 (3.65-5.03) 11/20/18 05:27 Hgb 9.4 gm/dl (11.8-15.2) L 11/20/18 05:27 Hct 29.6 % (35.5-45.6) L 11/20/18 05:27 MCV 72 fl (84-94) L 11/20/18 05:27 MCH 23 pg (28-32) L 11/20/18 05:27 MCHC 32 % (32-34) 11/20/18 05:27 RDW 17.9 % (13.2-15.2) H 11/20/18 05:27 Plt Count 233 K/mm3 (140-440) 11/20/18 05:27 Lymph % (Auto) 25.9 % (13.4-35.0) 11/18/18 11:36 [place] % (Auto) 13.3 % (0.0-7.3) H 11/18/18 11:36 Eos % (Auto) 8.0 % (0.0-4.3) H 11/18/18 11:36 Baso % (Auto) 1.1 % (0.0-1.8) 11/18/18 11:36 Lymph # 1.3 K/mm3 (1.2-5.4) 11/18/18 11:36 [place] # 0.7 K/mm3 (0.0-0.8) 11/18/18 11:36 Eos # 0.4 K/mm3 (0.0-0.4) 11/18/18 11:36 Baso # 0.1 K/mm3 (0.0-0.1) 11/18/18 11:36 Add Manual Diff Complete 11/20/18 05:27 Total Counted 100 11/20/18 05:27 Seg Neutrophils % Showroom Sales Assistant 11/20/18 05:27 Seg Neuts % (Manual) 19.0 % (40.0-70.0) L 11/20/18 05:27 0 % 11/20/18 05:27 71.0 % (13.4-35.0) H 11/20/18 05:27 Reactive Lymphs % (Man) 0 % 11/20/18 05:27 7.0 % (0.0-7.3) 11/20/18 05:27 3.0 % (0.0-4.3) 11/20/18 05:27 0 % (0.0-1.8) 11/20/18 05:27 0 % 11/20/18 05:27 0 % 11/20/18 05:27 0 % 11/20/18 05:27 0 % 11/20/18 05:27 Nucleated RBC % Not Reportable 11/20/18 05:27 Seg Neutrophils # 2.6 K/mm3 (1.8-7.7) 11/18/18 11:36 Seg Neutrophils # Man 0.8 K/mm3 (1.8-7.7) L 11/20/18 05:27 Band Neutrophils # 0.0 K/mm3 11/20/18 05:27 2.9 K/mm3 (1.2-5.4) 11/20/18 05:27 Abs React Lymphs (Man) 0.0 K/mm3 11/20/18 05:27 0.3 K/mm3 (0.0-0.8) 11/20/18 05:27 0.1 K/mm3 (0.0-0.4) 11/20/18 05:27 0.0 K/mm3 (0.0-0.1) 11/20/18 05:27 0.0 K/mm3 11/20/18 05:27 0.0 K/mm3 11/20/18 05:27 0.0 K/mm3 11/20/18 05:27 Blast Cells # 0.0 K/mm3 11/20/18 05:27 WBC Morphology Not Reportable 11/20/18 05:27 Hypersegmented Neuts Not Reportable 11/20/18 05:27 Hyposegmented Neuts Not Reportable 11/20/18 05:27 Hypogranular Neuts Not Reportable 11/20/18 05:27 Not Reportable 11/20/18 05:27 Not Reportable 11/20/18 05:27 Not Reportable 11/20/18 05:27 Not Reportable 11/20/18 05:27 Not Reportable 11/20/18 05:27 Not Reportable 11/20/18 05:27 Consistent w auto 11/20/18 05:27 Not Reportable 11/20/18 05:27 Plt Clumps, EDTA Not Reportable 11/20/18 05:27 Not Reportable 11/20/18 05:27 Not Reportable 11/20/18 05:27 Not Reportable 11/20/18 05:27 Plt Morphology Comment Not Reportable 11/20/18 05:27 RBC Morphology Not Reportable 11/20/18 05:27 Dimorphic RBCs Not Reportable 11/20/18 05:27 Not Reportable 11/20/18 05:27 1+ 11/20/18 05:27 Not Reportable 11/20/18 05:27 1+ 11/20/18 05:27 Not Reportable 11/20/18 05:27 Not Reportable 11/20/18 05:27 Not Reportable 11/20/18 05:27 Not Reportable 11/20/18 05:27 Not Reportable 11/20/18 05:27 Not Reportable 11/20/18 05:27 Not Reportable 11/20/18 05:27 Not Reportable 11/20/18 05:27 Not Reportable 11/20/18 05:27 Not Reportable 11/20/18 05:27 Not Reportable 11/20/18 05:27 Not Reportable 11/20/18 05:27 Not Reportable 11/20/18 05:27 Not Reportable 11/20/18 05:27 Not Reportable 11/20/18 05:27 Acanthocytes (Spur) Not Reportable 11/20/18 05:27 Rouleaux Not Reportable 11/20/18 05:27 Not Reportable 11/20/18 05:27 Not Reportable 11/20/18 05:27 Not Reportable 11/20/18 05:27 Not Reportable 11/20/18 05:27 Hem Pathologist Commnt No 11/20/18 05:27 PT 13.2 Sec. (12.2-14.9) 11/18/18 11:36 INR 0.95 (0.87-1.13) 11/18/18 11:36 APTT 28.2 Sec. (24.2-36.6) 11/18/18 11:36 Sodium 141 mmol/L (137-145) 11/20/18 05:27 Potassium 4.0 mmol/L (3.6-5.0) 11/20/18 05:27 Chloride 106.9 mmol/L (98-107) 11/20/18 05:27 Carbon Dioxide 25 mmol/L (22-30) 11/20/18 05:27 13 mmol/L 11/20/18 05:27 BUN 31 mg/dL (9-20) H 11/20/18 05:27 3.2 mg/dL (0.8-1.5) H 11/20/18 05:27 Estimated GFR 24 ml/min 11/20/18 05:27 10 % 11/20/18 05:27 Glucose 95 mg/dL (75-100) 11/20/18 05:27 POC Glucose 95 (70-105) 11/19/18 22:01 Calcium 7.5 mg/dL (8.4-10.2) L 11/20/18 05:27 Phosphorus 4.20 mg/dL (2.5-4.5) 11/20/18 05:27 Magnesium 1.90 mg/dL (1.7-2.3) 11/18/18 16:13 Iron 15 ug/dL (49-181) L 11/20/18 05:27 TIBC 138 mcg/dL (250-450) L 11/20/18 05:27 116.5 ng/mL (13.0-400.0) 11/20/18 05:27 < 0.20 mg/dL (0.1-1.2) 11/20/18 05:27 AST 25 units/L (5-40) 11/20/18 05:27 ALT 8 units/L (7-56) 11/20/18 05:27 69 units/L (35-129) 11/20/18 05:27 0.017 ng/mL (0.00-0.029) 11/18/18 11:36 NT-Pro-B Natriuret Pep 7846 pg/mL (0-900) H 11/18/18 11:36 5.6 g/dL (6.3-8.2) L 11/20/18 05:27 2.3 g/dL (3.9-5) L 11/20/18 05:27 0.7 % 11/20/18 05:27 TSH 0.700 mlU/mL (0.270-4.200) 11/18/18 16:13 Free T4 0.96 ng/dL (0.76-1.46) 11/18/18 16:13 5.2 ug/dL (4.0-12.0) 11/18/18 16:13 PTH Intact 86.02 pg/mL (15-65) H 11/20/18 05:27 Yellow (Yellow) 11/19/18 01:10 Slightly-cloudy (Clear) 11/19/18 01:10 5.0 (5.0-7.0) 11/19/18 01:10 Ur Specific [place] 1.014 (1.003-1.030) 11/19/18 01:10 >500 mg/dL (Negative) 11/19/18 01:10 50 mg/dL (Negative) 11/19/18 01:10 Neg mg/dL (Negative) 11/19/18 01:10 Mod (Negative) 11/19/18 01:10 Neg (Negative) 11/19/18 01:10 Neg (Negative) 11/19/18 01:10 < 2.0 mg/dL (<2.0) 11/19/18 01:10 Ur Leukocyte Esterase Neg (Negative) 11/19/18 01:10 2.0 /HPF (0.0-6.0) 11/19/18 01:10 12.0 /HPF (0.0-6.0) 11/19/18 01:10 U Epithel Cells (Auto) 1.0 /HPF (0-13.0) 11/19/18 01:10 1+ /HPF (Negative) 11/19/18 01:10 Hyaline Casts 13 /LPF 11/19/18 01:10 Few /HPF 11/19/18 01:10 143.4 mg/dL (0.1-20.0) H 11/19/18 11:30 Protein/Creatinin Ratio 0.63 11/19/18 11:30 103 mmol/L 11/19/18 01:10 90 mg/dL (5-11.8) H 11/19/18 11:30 Active Medications - Current Medications Current Medications: Generic Name Dose Route Start Last Admin Trade Name Freq PRN Reason Stop Dose Admin Acetaminophen 650 mg 11/18/18 13:41 11/19/18 22:23 Tylenol PO 650 mg Q4H PRN Administration Pain MILD(1-3)/Fever >100.5/YI Benzonatate 200 mg 11/18/18 22:00 11/20/18 05:43 Tessalon Perles PO 200 mg Q8HR ANJELICA Administration Dextrose 50 ml 11/18/18 16:00 D50w (25gm) Syringe IV PRN PRN Hypoglycemia Famotidine 20 mg 11/18/18 15:00 11/20/18 10:08 Pepcid PO 20 mg QDAY ANJELICA Administration Furosemide 20 mg 11/18/18 18:00 11/20/18 05:43 Lasix PO 20 mg BID@0600,1800 ANJELICA Administration Heparin Sodium (Porcine) 5,000 unit 11/18/18 22:00 11/20/18 10:08 Heparin SUB-Q 5,000 unit Q12HR ANJELICA Administration Hydralazine HCl 10 mg 11/18/18 15:55 Apresoline IV Q6HR PRN Hypertension Levofloxacin/Dextrose 500 mg in 100 mls @ 100 mls/hr 11/20/18 10:00 11/20/18 10:07 Levaquin 500mg/100ml IV 100 mls/hr Q48HR ANJELICA Administration Insulin Human Regular 0 units 11/18/18 16:30 11/20/18 08:09 Humulin R SUB-Q Not Given ACHS [facility] Protocol Metoprolol Tartrate 12.5 mg 11/18/18 22:00 11/20/18 10:08 Lopressor PO 12.5 mg BID ANJELICA Administration Morphine Sulfate 2 mg 11/18/18 16:04 Morphine IV Q4H PRN Pain, Moderate (4-6) Ondansetron HCl 4 mg 11/18/18 13:41 Zofran IV Q8H PRN Nausea And Vomiting Oxycodone/Acetaminophen 1 tab 11/18/18 16:03 11/20/18 10:23 Percocet 5/325 PO 1 tab Q6H PRN Administration Pain, Moderate (4-6) Sodium Chloride 10 ml 11/18/18 22:00 11/19/18 22:22 Sodium Chloride Flush Syringe 10 Ml IV 10 ml BID ANJELICA Administration Sodium Chloride 10 ml 11/18/18 13:41 Sodium Chloride Flush Syringe 10 Ml IV PRN PRN LINE FLUSH
[2018-11-20] MEDS: COREG PO SCH ×2 (18:12→21:56)
[2018-11-20] MEDS: SODIUM CHLORIDE FLUSH SYRINGE 10 ML IV SCH ×2 (20:10→21:56)
[2018-11-20] MEDS: BIDIL 20/37.5MG PO SCH (21:55)
[2018-11-21] MEDS: PERCOCET 5/325 PO PRN ×4 (00:09→18:34)
[2018-11-21] MEDS: BIDIL 20/37.5MG PO SCH ×3 (06:07→21:43)
[2018-11-21] MEDS: TESSALON PERLES PO SCH ×3 (06:07→21:44)
[2018-11-21] MEDS: LASIX PO SCH ×2 (06:07→18:34)
[2018-11-21 08:20] LABS: Calcium 7.5 mg/dL (8.4-10.2)
[2018-11-21] MEDS: HumuLIN R SUB-Q SCH ×4 (08:37→21:53)
--- NOTE | 2018-11-21 09:09 | Progress Note ---
Assessment and Plan 1. Acute kidney injury: Satya superimposed on CKD in the setting of CHF exacerbation. Renal US was negative for hydro. Renal function is improving. Monitor renal function. Renal prognosis is guarded. Avoid nephrotoxic agents. Meds dosage based on GFR. 2. FEN: Volume overload, diuretics. Monitor lytes. 3. CHF exacerbation. 4. Uncontrolled HTN: BP is better. 5. Anemia: POA. 5. DM-2. Subjective Date of service: 11/21/18 Principal diagnosis: CHF exacerbation/SATYA Interval history: Patient was seen and examined at the bedside. Doing ok. Objective - Vital Signs Vital signs: Vital Signs - 12hr 11/20/18 11/20/18 11/21/18 21:55 21:56 00:06 Temperature 98.0 F Pulse Rate 75 75 72 Respiratory 18 Rate Blood Pressure 147/79 147/79 121/75 O2 Sat by Pulse 96 Oximetry 11/21/18 11/21/18 11/21/18 00:09 01:09 03:58 Temperature 98.0 F Pulse Rate 69 Respiratory 20 18 18 Rate Blood Pressure 140/83 O2 Sat by Pulse 98 Oximetry 11/21/18 11/21/18 11/21/18 06:07 06:08 07:08 Temperature Pulse Rate 69 Respiratory 18 18 Rate Blood Pressure 140/83 O2 Sat by Pulse Oximetry - General Appearance General appearance: well-developed, well-nourished, appears stated age, other (not in distress) EENT: ATNC, PERRL, mucous membranes moist, hearing intact, vision intact Neck: supple Respiratory: Present: Rales Cardiology: regular, S1S2, no murmurs Gastrointestinal: normoactive bowel sounds, no tenderness, no distended Integumentary: no rash, warm and dry Neurologic: no focal deficit, no asterixis, alert and oriented x3 Musculoskeletal: other (L BKA, R 1st toe amputated, R LE 1+ edema noted) Psychiatric: cooperative - Lab 11/20/18 05:27 11/22/18 05:54 Most recent lab results Calcium 7.5 mg/dL (8.4-10.2) L 11/21/18 06:49 Phosphorus 4.20 mg/dL (2.5-4.5) 11/20/18 05:27 Magnesium 1.90 mg/dL (1.7-2.3) 11/18/18 16:13 143.4 mg/dL (0.1-20.0) H 11/19/18 11:30 103 mmol/L 11/19/18 01:10 90 mg/dL (5-11.8) H 11/19/18 11:30 Medications & Allergies - Medications Allergies/Adverse Reactions: Allergies No Known Allergies Allergy (Unverified 05/19/17 19:06) Home Medications: Home Medications Medication Instructions Recorded Confirmed Last Taken Type Sulfamethoxazole/Trimethoprim 1 each PO BID #14 tablet 05/20/17 11/18/18 Unknown Rx [Bactrim DS TAB] Furosemide [Lasix TAB] 80 mg PO DAILY 11/18/18 11/19/18 11/18/18 10:00 History Insulin Glargine [Lantus VIAL] 10 unit SUB-Q QHS 11/18/18 11/18/18 1 Week Ago History ~11/11/18 Ranitidine HCl [Zantac] 150 mg PO DAILY 11/18/18 11/19/18 11/18/18 10:00 History Timolol 0.5% [Timoptic] 1 drops OP BID 11/18/18 11/18/18 11/18/18 10:00 History Carvedilol [Coreg] 6.25 mg PO BID #60 tablet 11/22/18 Unknown Rx Furosemide [Lasix TAB] 20 mg PO BID@0600,1800 #60 tablet 11/22/18 Unknown Rx Isosorb Dinit/Hydralazine [Bidil 1 each PO Q8HR #30 tablet 11/22/18 Unknown Rx 20/37.5MG] Active Medications: Generic Name Dose Route Start Last Admin Trade Name Freq PRN Reason Stop Dose Admin Acetaminophen 650 mg 11/18/18 13:41 11/19/18 22:23 Tylenol PO 650 mg Q4H PRN Administration Pain MILD(1-3)/Fever >100.5/YI Benzonatate 200 mg 11/18/18 22:00 11/21/18 06:07 Tessalon Perles PO 200 mg Q8HR ANJELICA Administration Carvedilol 6.25 mg 11/20/18 15:00 11/20/18 21:56 Coreg PO 6.25 mg BID ANJELICA Administration Dextrose 50 ml 11/18/18 16:00 D50w (25gm) Syringe IV PRN PRN Hypoglycemia Famotidine 20 mg 11/18/18 15:00 11/20/18 10:08 Pepcid PO 20 mg QDAY ANJELICA Administration Furosemide 20 mg 11/18/18 18:00 11/21/18 06:07 Lasix PO 20 mg BID@0600,1800 ANJELICA Administration Heparin Sodium (Porcine) 5,000 unit 11/18/18 22:00 11/20/18 21:52 Heparin SUB-Q 5,000 unit Q12HR ANJELICA Administration Hydralazine HCl 10 mg 11/18/18 15:55 Apresoline IV Q6HR PRN Hypertension Levofloxacin/Dextrose 500 mg in 100 mls @ 100 mls/hr 11/20/18 10:00 11/20/18 10:07 Levaquin 500mg/100ml IV 100 mls/hr Q48HR ANJELICA Administration Insulin Human Regular 0 units 11/18/18 16:30 11/21/18 08:37 Humulin R SUB-Q Not Given ACHS [facility] Protocol Isosorbide Dinitrate/Hydralazine 1 each 11/20/18 22:00 11/21/18 06:07 Bidil 20/37.5mg PO 1 each Q8HR ANJELICA Administration Morphine Sulfate 2 mg 11/18/18 16:04 11/20/18 20:39 Morphine IV 2 mg Q4H PRN Administration Pain, Moderate (4-6) Ondansetron HCl 4 mg 11/18/18 13:41 Zofran IV Q8H PRN Nausea And Vomiting Oxycodone/Acetaminophen 1 tab 11/18/18 16:03 11/21/18 06:08 Percocet 5/325 PO 1 tab Q6H PRN Administration Pain, Moderate (4-6) Sodium Chloride 10 ml 11/18/18 22:00 11/20/18 21:56 Sodium Chloride Flush Syringe 10 Ml IV 10 ml BID ANJELICA Administration Sodium Chloride 10 ml 11/18/18 13:41 Sodium Chloride Flush Syringe 10 Ml IV PRN PRN LINE FLUSH
--- NOTE | 2018-11-21 09:44 | Progress Note ---
Assessment and Plan Shortness of breath coughs and fever associated Acute systolic heart failure Pleural effusions repeat cxr is pending Hypertension Chronic renal failure Diabetes PVD s/p left BKA An echocardiogram revealed left pleural effusion at least moderate pulmonary hypertension, RVSP at 49 mmHg. There is moderate LVH with a decreased left ventricular systolic function, ejection fraction 30-35%. Recommendations: Continue medical therapy for systolic heart failure to include afterload agents and beta blockers. Diuretic therapy as directed by nephrology. Lexiscan thallium stress test for ischemia assessment will be done tomorrow. Subjective Date of service: 11/21/18 Principal diagnosis: CHF exacerbation/BATOOL Interval history: Patient has no complaints. His breathing has improved. Objective Vital Signs Temp Pulse Resp Resp BP Pulse Ox 11/21/18 07:08 18 11/21/18 06:08 18 11/21/18 06:07 69 140/83 11/21/18 03:58 98.0 F 69 18 140/83 98 11/21/18 01:09 18 11/21/18 00:09 20 11/21/18 00:06 98.0 F 72 18 121/75 96 11/20/18 21:56 75 147/79 11/20/18 21:55 75 147/79 11/20/18 21:09 18 11/20/18 21:07 18 11/20/18 21:05 20 98 11/20/18 20:39 18 11/20/18 20:03 74 11/20/18 19:53 96 11/20/18 19:24 98.6 F 75 18 141/79 96 11/20/18 19:13 18 11/20/18 18:13 20 11/20/18 18:12 76 11/20/18 17:17 104/53 11/20/18 17:03 98.3 F 74 18 144/75 97 11/20/18 11:39 98.3 F 18 143/84 11/20/18 10:23 20 11/20/18 10:16 20 125/71 11/20/18 10:00 69 98 - Physical Examination General: No Apparent Distress HEENT: Positive: PERRL Neck: Positive: trachea midline Cardiac: Positive: Reg Rate and Rhythm Lungs: Positive: Decreased Breath Sounds Neuro: Positive: Grossly Intact Extremities: Present: +1 Edema, Other (left BKA) - Labs and Meds Comprehensive Metabolic Panel 05/22/19 Range/Units 06:49 Sodium 141 (137-145) mmol/L Potassium 4.2 (3.6-5.0) mmol/L Chloride 106.7 (98-107) mmol/L Carbon Dioxide 26 (22-30) mmol/L BUN 34 H (9-20) mg/dL Creatinine 3.0 H (0.8-1.5) mg/dL Glucose 133 H (75-100) mg/dL Calcium 7.5 L (8.4-10.2) mg/dL
[2018-11-21] MEDS: COREG PO SCH ×2 (09:48→21:44)
[2018-11-21] MEDS: PEPCID PO SCH (09:48)
[2018-11-21] MEDS: SODIUM CHLORIDE FLUSH SYRINGE 10 ML IV SCH ×2 (09:49→21:45)
[2018-11-21] MEDS: HEPARIN SUB-Q SCH ×2 (09:50→21:44)
--- NOTE | 2018-11-21 10:35 | XRay Report ---
CHEST TWO VIEWS: 11/21/18 08:31 CLINICAL: Followup bilateral pleural effusions. COMPARISON: 11/18/18 FINDINGS: Mild improvement with slight clearing of the right costophrenic angle on the frontal view. Continued right basal streaky lung opacities. Continued left basal opacification with silhouetting of the left hemidiaphragm and opacification of the left costophrenic angle.Posterior as well as anterior patchy lung opacities on the lateral view. Normal heart and pulmonary vessels.No tubes or lines. IMPRESSION: Continued bilateral pleural effusions, left larger than right and some decreased size of the small right pleural effusion since the last exam. Suspect bilateral lower lobe and possible right middle lobe pneumonia. No CHF.
--- NOTE | 2018-11-21 12:57 | Progress Note ---
Assessment and Plan Assessment and plan: --Acute systolic CHF (congestive heart failure) Exacerbation Continue anti-failure medications Ejection fraction 30-35%, low sodium diet, fluid restriction Stress test tomorrow --Left pleural effusion; due to fluid overload, continue diuretics, pulmonary consult, possible thoracentesis if needed --ARF (acute renal failure) with tubular necrosis Gentle hydration, closely monitor his renal function, avoid nephrotoxins Nephrology following , mild improvement in creatinine -- Hypertensive urgency; present on admission Blood pressures reasonable level , continue current antihypertensives When necessary medications --Diabetes2 ADA diet, insulin, accu check, hypoglycemia protocol -- DVT prophylaxis SCD to BLE ,heparin renal dose Monitor closely and adjust management as needed Assessment and recommendations noted and appreciated Plan of care is reviewed with the patient and his nurse History Interval history: Patient seen and examined medical records reviewed No new events reported by the nursing staff Patient feels slightly better Vital signs noted Hospitalist Physical - Constitutional Vitals: Temp Pulse Resp BP Pulse Ox 98.0 F 70 18 145/82 98 11/21/18 03:58 11/21/18 09:48 11/21/18 07:08 11/21/18 09:48 11/21/18 03:58 General appearance: Present: no acute distress, well-nourished - EENT Eyes: Present: PERRL, EOM intact - Neck Neck: Present: supple, normal ROM - Respiratory Respiratory effort: normal Respiratory: bilateral: diminished, rales, negative: rhonchi, wheezing - Cardiovascular Rhythm: regular Heart Sounds: Present: S1 & S2 - Extremities Extremities: no ischemia Extremity abnormal: edema - Abdominal General gastrointestinal: soft, non-tender, non-distended, normal bowel sounds - Integumentary Integumentary: Present: clear, warm - Psychiatric Psychiatric: appropriate mood/affect, cooperative - Neurologic Neurologic: CNII-XII intact, moves all extremities Results - Labs CBC & Chem 7: 11/20/18 05:27 11/21/18 06:49 Labs: Laboratory Last Values WBC 4.1 K/mm3 (4.5-11.0) L 11/20/18 05:27 RBC 4.10 M/mm3 (3.65-5.03) 11/20/18 05:27 Hgb 9.4 gm/dl (11.8-15.2) L 11/20/18 05:27 Hct 29.6 % (35.5-45.6) L 11/20/18 05:27 MCV 72 fl (84-94) L 11/20/18 05:27 MCH 23 pg (28-32) L 11/20/18 05:27 MCHC 32 % (32-34) 11/20/18 05:27 RDW 17.9 % (13.2-15.2) H 11/20/18 05:27 Plt Count 233 K/mm3 (140-440) 11/20/18 05:27 Lymph % (Auto) 25.9 % (13.4-35.0) 11/18/18 11:36 [place] % (Auto) 13.3 % (0.0-7.3) H 11/18/18 11:36 Eos % (Auto) 8.0 % (0.0-4.3) H 11/18/18 11:36 Baso % (Auto) 1.1 % (0.0-1.8) 11/18/18 11:36 Lymph # 1.3 K/mm3 (1.2-5.4) 11/18/18 11:36 [place] # 0.7 K/mm3 (0.0-0.8) 11/18/18 11:36 Eos # 0.4 K/mm3 (0.0-0.4) 11/18/18 11:36 Baso # 0.1 K/mm3 (0.0-0.1) 11/18/18 11:36 Add Manual Diff Complete 11/20/18 05:27 Total Counted 100 11/20/18 05:27 Seg Neutrophils % Traffic Survey Technician 11/20/18 05:27 Seg Neuts % (Manual) 19.0 % (40.0-70.0) L 11/20/18 05:27 0 % 11/20/18 05:27 71.0 % (13.4-35.0) H 11/20/18 05:27 Reactive Lymphs % (Man) 0 % 11/20/18 05:27 7.0 % (0.0-7.3) 11/20/18 05:27 3.0 % (0.0-4.3) 11/20/18 05:27 0 % (0.0-1.8) 11/20/18 05:27 0 % 11/20/18 05:27 0 % 11/20/18 05:27 0 % 11/20/18 05:27 0 % 11/20/18 05:27 Nucleated RBC % Not Reportable 11/20/18 05:27 Seg Neutrophils # 2.6 K/mm3 (1.8-7.7) 11/18/18 11:36 Seg Neutrophils # Man 0.8 K/mm3 (1.8-7.7) L 11/20/18 05:27 Band Neutrophils # 0.0 K/mm3 11/20/18 05:27 2.9 K/mm3 (1.2-5.4) 11/20/18 05:27 Abs React Lymphs (Man) 0.0 K/mm3 11/20/18 05:27 0.3 K/mm3 (0.0-0.8) 11/20/18 05:27 0.1 K/mm3 (0.0-0.4) 11/20/18 05:27 0.0 K/mm3 (0.0-0.1) 11/20/18 05:27 0.0 K/mm3 11/20/18 05:27 0.0 K/mm3 11/20/18 05:27 0.0 K/mm3 11/20/18 05:27 Blast Cells # 0.0 K/mm3 11/20/18 05:27 WBC Morphology Not Reportable 11/20/18 05:27 Hypersegmented Neuts Not Reportable 11/20/18 05:27 Hyposegmented Neuts Not Reportable 11/20/18 05:27 Hypogranular Neuts Not Reportable 11/20/18 05:27 Not Reportable 11/20/18 05:27 Not Reportable 11/20/18 05:27 Not Reportable 11/20/18 05:27 Not Reportable 11/20/18 05:27 Not Reportable 11/20/18 05:27 Not Reportable 11/20/18 05:27 Consistent w auto 11/20/18 05:27 Not Reportable 11/20/18 05:27 Plt Clumps, EDTA Not Reportable 11/20/18 05:27 Not Reportable 11/20/18 05:27 Not Reportable 11/20/18 05:27 Not Reportable 11/20/18 05:27 Plt Morphology Comment Not Reportable 11/20/18 05:27 RBC Morphology Not Reportable 11/20/18 05:27 Dimorphic RBCs Not Reportable 11/20/18 05:27 Not Reportable 11/20/18 05:27 1+ 11/20/18 05:27 Not Reportable 11/20/18 05:27 1+ 11/20/18 05:27 Not Reportable 11/20/18 05:27 Not Reportable 11/20/18 05:27 Not Reportable 11/20/18 05:27 Not Reportable 11/20/18 05:27 Not Reportable 11/20/18 05:27 Not Reportable 11/20/18 05:27 Not Reportable 11/20/18 05:27 Not Reportable 11/20/18 05:27 Not Reportable 11/20/18 05:27 Not Reportable 11/20/18 05:27 Not Reportable 11/20/18 05:27 Not Reportable 11/20/18 05:27 Not Reportable 11/20/18 05:27 Not Reportable 11/20/18 05:27 Not Reportable 11/20/18 05:27 Acanthocytes (Spur) Not Reportable 11/20/18 05:27 Rouleaux Not Reportable 11/20/18 05:27 Not Reportable 11/20/18 05:27 Not Reportable 11/20/18 05:27 Not Reportable 11/20/18 05:27 Not Reportable 11/20/18 05:27 Hem Pathologist Commnt No 11/20/18 05:27 PT 13.2 Sec. (12.2-14.9) 11/18/18 11:36 INR 0.95 (0.87-1.13) 11/18/18 11:36 APTT 28.2 Sec. (24.2-36.6) 11/18/18 11:36 Sodium 141 mmol/L (137-145) 11/21/18 06:49 Potassium 4.2 mmol/L (3.6-5.0) 11/21/18 06:49 Chloride 106.7 mmol/L (98-107) 11/21/18 06:49 Carbon Dioxide 26 mmol/L (22-30) 11/21/18 06:49 13 mmol/L 11/21/18 06:49 BUN 34 mg/dL (9-20) H 11/21/18 06:49 3.0 mg/dL (0.8-1.5) H 11/21/18 06:49 Estimated GFR 26 ml/min 11/21/18 06:49 11 % 11/21/18 06:49 Glucose 133 mg/dL (75-100) H 11/21/18 06:49 POC Glucose 167 (70-105) H 11/20/18 21:27 Calcium 7.5 mg/dL (8.4-10.2) L 11/21/18 06:49 Phosphorus 4.20 mg/dL (2.5-4.5) 11/20/18 05:27 Magnesium 1.90 mg/dL (1.7-2.3) 11/18/18 16:13 Iron 15 ug/dL (49-181) L 11/20/18 05:27 TIBC 138 mcg/dL (250-450) L 11/20/18 05:27 116.5 ng/mL (13.0-400.0) 11/20/18 05:27 < 0.20 mg/dL (0.1-1.2) 11/20/18 05:27 AST 25 units/L (5-40) 11/20/18 05:27 ALT 8 units/L (7-56) 11/20/18 05:27 69 units/L (35-129) 11/20/18 05:27 0.017 ng/mL (0.00-0.029) 11/18/18 11:36 NT-Pro-B Natriuret Pep 7846 pg/mL (0-900) H 11/18/18 11:36 5.6 g/dL (6.3-8.2) L 11/20/18 05:27 2.3 g/dL (3.9-5) L 11/20/18 05:27 0.7 % 11/20/18 05:27 TSH 0.700 mlU/mL (0.270-4.200) 11/18/18 16:13 Free T4 0.96 ng/dL (0.76-1.46) 11/18/18 16:13 5.2 ug/dL (4.0-12.0) 11/18/18 16:13 PTH Intact 86.02 pg/mL (15-65) H 11/20/18 05:27 Yellow (Yellow) 11/19/18 01:10 Slightly-cloudy (Clear) 11/19/18 01:10 5.0 (5.0-7.0) 11/19/18 01:10 Ur Specific [place] 1.014 (1.003-1.030) 11/19/18 01:10 >500 mg/dL (Negative) 11/19/18 01:10 50 mg/dL (Negative) 11/19/18 01:10 Neg mg/dL (Negative) 11/19/18 01:10 Mod (Negative) 11/19/18 01:10 Neg (Negative) 11/19/18 01:10 Neg (Negative) 11/19/18 01:10 < 2.0 mg/dL (<2.0) 11/19/18 01:10 Ur Leukocyte Esterase Neg (Negative) 11/19/18 01:10 2.0 /HPF (0.0-6.0) 11/19/18 01:10 12.0 /HPF (0.0-6.0) 11/19/18 01:10 U Epithel Cells (Auto) 1.0 /HPF (0-13.0) 11/19/18 01:10 1+ /HPF (Negative) 11/19/18 01:10 Hyaline Casts 13 /LPF 11/19/18 01:10 Few /HPF 11/19/18 01:10 143.4 mg/dL (0.1-20.0) H 11/19/18 11:30 Protein/Creatinin Ratio 0.63 11/19/18 11:30 103 mmol/L 11/19/18 01:10 90 mg/dL (5-11.8) H 11/19/18 11:30 Active Medications - Current Medications Current Medications: Generic Name Dose Route Start Last Admin Trade Name Freq PRN Reason Stop Dose Admin Acetaminophen 650 mg 11/18/18 13:41 11/19/18 22:23 Tylenol PO 650 mg Q4H PRN Administration Pain MILD(1-3)/Fever >100.5/YI Benzonatate 200 mg 11/18/18 22:00 11/21/18 06:07 Tessalon Perles PO 200 mg Q8HR ANJELICA Administration Carvedilol 6.25 mg 11/20/18 15:00 11/21/18 09:48 Coreg PO 6.25 mg BID ANJELICA Administration Dextrose 50 ml 11/18/18 16:00 D50w (25gm) Syringe IV PRN PRN Hypoglycemia Famotidine 20 mg 11/18/18 15:00 11/21/18 09:48 Pepcid PO 20 mg QDAY ANJELICA Administration Furosemide 20 mg 11/18/18 18:00 11/21/18 06:07 Lasix PO 20 mg BID@0600,1800 ANJELICA Administration Heparin Sodium (Porcine) 5,000 unit 11/18/18 22:00 11/21/18 09:50 Heparin SUB-Q 5,000 unit Q12HR ANJELICA Administration Hydralazine HCl 10 mg 11/18/18 15:55 Apresoline IV Q6HR PRN Hypertension Levofloxacin/Dextrose 500 mg in 100 mls @ 100 mls/hr 11/20/18 10:00 11/20/18 10:07 Levaquin 500mg/100ml IV 100 mls/hr Q48HR ANJELICA Administration Insulin Human Regular 0 units 11/18/18 16:30 11/21/18 08:37 Humulin R SUB-Q Not Given ACHS [facility] Protocol Isosorbide Dinitrate/Hydralazine 1 each 11/20/18 22:00 11/21/18 06:07 Bidil 20/37.5mg PO 1 each Q8HR ANJELICA Administration Morphine Sulfate 2 mg 11/18/18 16:04 11/20/18 20:39 Morphine IV 2 mg Q4H PRN Administration Pain, Moderate (4-6) Ondansetron HCl 4 mg 11/18/18 13:41 Zofran IV Q8H PRN Nausea And Vomiting Oxycodone/Acetaminophen 1 tab 11/18/18 16:03 11/21/18 12:13 Percocet 5/325 PO 1 tab Q6H PRN Administration Pain, Moderate (4-6) Sodium Chloride 10 ml 11/18/18 22:00 11/21/18 09:49 Sodium Chloride Flush Syringe 10 Ml IV 10 ml BID ANJELICA Administration Sodium Chloride 10 ml 11/18/18 13:41 Sodium Chloride Flush Syringe 10 Ml IV PRN PRN LINE FLUSH
[2018-11-22] MEDS: PERCOCET 5/325 PO PRN ×2 (00:07→11:48)
[2018-11-22] MEDS: TESSALON PERLES PO SCH ×2 (06:18→15:43)
[2018-11-22] MEDS: LASIX PO SCH (06:18)
[2018-11-22] MEDS: BIDIL 20/37.5MG PO SCH ×2 (06:18→13:33)
[2018-11-22 06:37] LABS: Calcium 7.6 mg/dL (8.4-10.2)
[2018-11-22] MEDS: HumuLIN R SUB-Q SCH ×3 (08:30→17:43)
--- NOTE | 2018-11-22 09:18 | Progress Note ---
Assessment and Plan Shortness of breath coughs and fever associated Acute systolic heart failure Pleural effusions repeat cxr is pending Hypertension Chronic renal failure Diabetes PVD s/p left BKA An echocardiogram revealed left pleural effusion at least moderate pulmonary hypertension, RVSP at 49 mmHg. There is moderate LVH with a decreased left ventricular systolic function, ejection fraction 30-35%. Recommendations: Continue medical therapy for systolic heart failure to include afterload agents and beta blockers. Diuretic therapy as directed by nephrology. Lexiscan thallium stress test for ischemia assessment today. Results are pending. Subjective Date of service: 11/22/18 Principal diagnosis: CHF exacerbation/BATOOL Interval history: Patient has no complaints. For planned thallium stress test today. Objective Vital Signs Temp Pulse Resp BP Pulse Ox 11/22/18 06:20 79 160/85 11/22/18 04:56 98.1 F 11/22/18 04:54 78 18 185/95 98 11/22/18 01:07 16 11/22/18 00:09 98.6 F 11/22/18 00:08 79 18 144/79 100 11/22/18 00:07 17 11/21/18 21:58 97 11/21/18 21:44 78 147/81 11/21/18 21:43 78 147/81 11/21/18 19:44 98.6 F 11/21/18 19:42 78 20 147/81 97 11/21/18 15:53 145/82 11/21/18 15:11 71 147/82 11/21/18 11:58 71 131/71 97 11/21/18 10:00 20 11/21/18 09:48 70 145/82 - Physical Examination General: No Apparent Distress HEENT: Positive: PERRL Neck: Positive: trachea midline Cardiac: Positive: Reg Rate and Rhythm Lungs: Positive: Decreased Breath Sounds Neuro: Positive: Grossly Intact Extremities: Present: +1 Edema, Other (left BKA) - Labs and Meds Comprehensive Metabolic Panel 11/22/18 Range/Units 05:54 Sodium 141 (137-145) mmol/L Potassium 4.2 (3.6-5.0) mmol/L Chloride 108.0 H (98-107) mmol/L Carbon Dioxide 25 (22-30) mmol/L BUN 32 H (9-20) mg/dL Creatinine 2.4 H (0.8-1.5) mg/dL Glucose 131 H (75-100) mg/dL Calcium 7.6 L (8.4-10.2) mg/dL
[2018-11-22] MEDS ORDERED: LEXISCAN IV ONE ×2 (09:55→09:56)
--- NOTE | 2018-11-22 10:01 | Progress Note ---
Assessment and Plan 1. Acute kidney injury: Satya superimposed on CKD in the setting of CHF exacerbation. Renal US was negative for hydro. Renal function is improving. Monitor renal function. Renal prognosis is guarded. Avoid nephrotoxic agents. Meds dosage based on GFR. 2. FEN: Volume overload, diuretics. Monitor lytes. 3. CHF exacerbation. 4. Uncontrolled HTN: BP is better. 5. Anemia: POA. 5. DM-2. F/u with me in 1-2 weeks. Subjective Date of service: 11/22/18 Principal diagnosis: CHF exacerbation/SATYA Interval history: Patient was seen and examined at the bedside. Doing ok. Objective - Vital Signs Vital signs: Vital Signs - 12hr 11/22/18 11/22/18 11/22/18 00:07 00:08 00:09 Temperature 98.6 F Pulse Rate 79 Respiratory 17 18 Rate Blood Pressure 144/79 O2 Sat by Pulse 100 Oximetry 11/22/18 11/22/18 11/22/18 01:07 04:54 04:56 Temperature 98.1 F Pulse Rate 78 Respiratory 16 18 Rate Blood Pressure 185/95 O2 Sat by Pulse 98 Oximetry 11/22/18 06:20 Temperature Pulse Rate 79 Respiratory Rate Blood Pressure 160/85 O2 Sat by Pulse Oximetry - General Appearance General appearance: well-developed, well-nourished, appears stated age, other (not in distress) EENT: ATNC, PERRL, hearing intact, vision intact Neck: supple Respiratory: Present: Clear to Ascultation Cardiology: regular, S1S2, no murmurs Gastrointestinal: normoactive bowel sounds, no tenderness, no distended Integumentary: no rash, warm and dry Neurologic: no focal deficit, no asterixis, alert and oriented x3 Musculoskeletal: other (L BKA, R 1st toe amputated, R LE trace edema noted) - Lab 11/20/18 05:27 11/22/18 05:54 Most recent lab results Calcium 7.6 mg/dL (8.4-10.2) L 11/22/18 05:54 Phosphorus 4.20 mg/dL (2.5-4.5) 11/20/18 05:27 Magnesium 1.90 mg/dL (1.7-2.3) 11/18/18 16:13 143.4 mg/dL (0.1-20.0) H 11/19/18 11:30 103 mmol/L 11/19/18 01:10 90 mg/dL (5-11.8) H 11/19/18 11:30 Medications & Allergies - Medications Allergies/Adverse Reactions: Allergies No Known Allergies Allergy (Unverified 05/19/17 19:06) Home Medications: Home Medications Medication Instructions Recorded Confirmed Last Taken Type Sulfamethoxazole/Trimethoprim 1 each PO BID #14 tablet 05/20/17 11/18/18 Unknown Rx [Bactrim DS TAB] Furosemide [Lasix TAB] 80 mg PO DAILY 11/18/18 11/19/18 11/18/18 10:00 History Insulin Glargine [Lantus VIAL] 10 unit SUB-Q QHS 11/18/18 11/18/18 1 Week Ago History ~11/11/18 Ranitidine HCl [Zantac] 150 mg PO DAILY 11/18/18 11/19/18 11/18/18 10:00 History Timolol 0.5% [Timoptic] 1 drops OP BID 11/18/18 11/18/18 11/18/18 10:00 History Carvedilol [Coreg] 6.25 mg PO BID #60 tablet 11/22/18 Unknown Rx Furosemide [Lasix TAB] 20 mg PO BID@0600,1800 #60 tablet 11/22/18 Unknown Rx Isosorb Dinit/Hydralazine [Bidil 1 each PO Q8HR #30 tablet 11/22/18 Unknown Rx 20/37.5MG] Active Medications: Generic Name Dose Route Start Last Admin Trade Name Freq PRN Reason Stop Dose Admin Acetaminophen 650 mg 11/18/18 13:41 11/19/18 22:23 Tylenol PO 650 mg Q4H PRN Administration Pain MILD(1-3)/Fever >100.5/YI Benzonatate 200 mg 11/18/18 22:00 11/22/18 06:18 Tessalon Perles PO Not Given Q8HR ANJELICA Carvedilol 6.25 mg 11/20/18 15:00 11/21/18 21:44 Coreg PO 6.25 mg BID ANJELICA Administration Dextrose 50 ml 11/18/18 16:00 D50w (25gm) Syringe IV PRN PRN Hypoglycemia Famotidine 20 mg 11/18/18 15:00 11/21/18 09:48 Pepcid PO 20 mg QDAY ANJELICA Administration Furosemide 20 mg 11/18/18 18:00 11/22/18 06:18 Lasix PO Not Given BID@0600,1800 [facility] Heparin Sodium (Porcine) 5,000 unit 11/18/18 22:00 11/21/18 21:44 Heparin SUB-Q 5,000 unit Q12HR ANJELICA Administration Hydralazine HCl 10 mg 11/18/18 15:55 11/22/18 06:20 Apresoline IV 10 mg Q6HR PRN Administration Hypertension Levofloxacin/Dextrose 500 mg in 100 mls @ 100 mls/hr 11/20/18 10:00 11/20/18 10:07 Levaquin 500mg/100ml IV 100 mls/hr Q48HR [facility] Administration Insulin Human Regular 0 units 11/18/18 16:30 11/21/18 21:53 Humulin R SUB-Q 2 units ACHS ANJELICA Administration Protocol Isosorbide Dinitrate/Hydralazine 1 each 11/20/18 22:00 11/22/18 06:18 Bidil 20/37.5mg PO Not Given Q8HR [facility] Morphine Sulfate 2 mg 11/18/18 16:04 11/20/18 20:39 Morphine IV 2 mg Q4H PRN Administration Pain, Moderate (4-6) Ondansetron HCl 4 mg 11/18/18 13:41 Zofran IV Q8H PRN Nausea And Vomiting Oxycodone/Acetaminophen 1 tab 11/18/18 16:03 11/22/18 00:07 Percocet 5/325 PO 1 tab Q6H PRN Administration Pain, Moderate (4-6) Regadenoson 0.4 mg 11/22/18 09:55 Lexiscan IV 11/22/18 09:56 ONCE ONE Sodium Chloride 10 ml 11/18/18 22:00 11/21/18 21:45 Sodium Chloride Flush Syringe 10 Ml IV 10 ml BID ANJELICA Administration Sodium Chloride 10 ml 11/18/18 13:41 Sodium Chloride Flush Syringe 10 Ml IV PRN PRN LINE FLUSH
[2018-11-22] MEDS: LEVAQUIN 500MG/100ML 500 MG/100 ML BAG IV SCH (11:13)
[2018-11-22] MEDS: PEPCID PO SCH (11:13)
[2018-11-22] MEDS: HEPARIN SUB-Q SCH (11:13)
[2018-11-22] MEDS: COREG PO SCH (11:14)
[2018-11-22] MEDS: SODIUM CHLORIDE FLUSH SYRINGE 10 ML IV SCH (11:44)
--- NOTE | 2018-11-22 16:11 | Discharge Summary ---
Providers - Providers Date of Admission: 11/18/18 14:47 Date of discharge: 11/22/18 Attending physician: DEJA HAYNES 11/18/18 14:00 Consult to Physician [CONS] Routine Comment: Consulting Provider: REJI THOMPSON Physician Instructions: Reason For Exam: ARF/ATN 11/18/18 15:51 Consult to Physician [CONS] Routine Comment: Consulting Provider: CARRINGTON BOGGS Physician Instructions: Reason For Exam: chf Primary care physician: LI RIVERA Hospitalization Reason for admission: worsening shortness of breath Condition: Stable Pertinent studies: Chest x-ray; bilateral air space disease and pleural effusions Stress test; fixed defect, EF 30-35% VQ scan low probability for PE, possible bilateral pleural effusion, cardiomegaly Renal ultrasound; nonspecific renal parenchymal disease, bilateral simple renal cysts, bilateral pleural effusions Chest x-ray; continued bilateral pleural effusions left larger than the right suspected bilateral lower lobe and possible right middle lobe pneumonia, no CHF; Hospital course: 58 YO Male with HTN, DM, GERD presents to ED for evaluation. Pt states that he has experienced shortness of breath over the past 1 week, with worsening symptoms over the past 3 days. Pt acknowledges decreased exercise tolerance, dypsnea on exertion, dypsnea at rest, Orthopnea/PND, leg swelling, and elevated SBP. Admitted sympyomatically managed,evaluated by cardiology,Had ECHO and stress test,neg BATOOL,vasomotar nephropathy,evaluated by nephrology,mild improvement. Symptoms improved.Today patient comfortable,no new complaints, Cleared by consults,Discharge and f/u per schedule Discharge Diagnosis: --Acute systolic CHF Exacerbation Continue anti-failure medications Ejection fraction 30-35%, low sodium diet, fluid restriction Stress test tomorrow --Left pleural effusion; due to fluid overload, continue diuretics, pulmonary consult, possible thoracentesis if needed --ARF (acute renal failure) with tubular necrosis Gentle hydration, closely monitor his renal function, avoid nephrotoxins Nephrology following , mild improvement in creatinine -- Hypertensive urgency; present on admission Blood pressures reasonable level , continue current antihypertensives When necessary medications --Diabetes2 ADA diet, insulin, accu check, hypoglycemia protocol -- DVT prophylaxis SCD to BLE ,heparin renal dose Stable at discharge Disposition: TO HOME OR SELFCARE Time spent for discharge: 32 min Core Measure Documentation - Palliative Care Palliative Care/ Comfort Measures: Not Applicable - Core Measures Any of the following diagnoses?: heart failure - Heart Failure Discharge Requirements EMILY/ARB for LVSD if EF <40%: No Reason for no EMILY/ARB: Renal impairment Beta paz at discharge: Yes Exam - Constitutional Vitals: Temp Pulse Resp BP Pulse Ox 98.1 F 84 18 167/88 97 11/22/18 04:56 11/22/18 12:27 11/22/18 04:54 11/22/18 12:27 11/22/18 12:27 General appearance: Present: no acute distress, well-nourished - EENT Eyes: Present: PERRL, EOM intact - Neck Neck: Present: supple, normal ROM - Respiratory Respiratory effort: normal Respiratory: bilateral: diminished, negative: rales, rhonchi, wheezing - Cardiovascular Rhythm: regular Heart Sounds: Present: S1 & S2 - Extremities Extremities: no ischemia, No edema - Abdominal General gastrointestinal: Present: soft, non-tender, non-distended, normal bowel sounds - Integumentary Integumentary: Present: clear, warm - Musculoskeletal Musculoskeletal: strength equal bilaterally, generalized weakness - Psychiatric Psychiatric: appropriate mood/affect, cooperative - Neurologic Neurologic: CNII-XII intact, moves all extremities Plan Activity: advance as tolerated, fall precautions Diet: low salt, diabetic Additional Instructions: Follow Precautions. Advised to comply with medications and diet and follow-up visits Follow up with: LI RIVERA MD [Primary Care Provider] - 7 Days CARRINGTON BOGGS MD [Staff Physician] - 7 Days REJI THOMPSON MD [Staff Physician] - 7 Days Prescriptions: Isosorb Dinit/Hydralazine [Bidil 20/37.5MG] 1 each PO Q8HR #30 tablet Carvedilol [Coreg] 6.25 mg PO BID #60 tablet Furosemide [Lasix TAB] 20 mg PO BID@0600,1800 #60 tablet
[2018-11-22 16:52] VITALS: BP 140/76
--- NOTE | 2018-12-01 05:46 | Treadmill Report ---
INDICATION: Congestive heart failure. ORDERING PHYSICIAN: Karlos Salazar MD FINDINGS: The left ventricular cavity is mildly dilated. There is evidence of a moderate sized fixed basal and mid inferolateral wall defect of moderate intensity consistent with prior infarction in the circumflex artery distribution. The gated wall imaging is pertinent for inferolateral wall hypokinesis. The left ventricular ejection fraction is measured at 40%. IMPRESSION: 1. Abnormal myocardial perfusion scan revealing a moderate sized fixed inferolateral wall defect consistent with prior infarction in the left circumflex artery distribution. No scintigraphic evidence of myocardial ischemia. Mildly dilated left ventricular cavity with an ejection fraction measured at 40% and hypokinesis of the inferolateral wall. 2. Findings consistent with moderate risk myocardial perfusion scan associated with 1-year cardiovascular event rate of 1-3%. JOB# [id number] MAGGIE/HUGO
== END 2018-11-22 19:10 | disposition home or self-care (01) | DRG 682 ==
LOC: ED 11:14 → 4A 14:47
PROVIDERS: ADMIT Internal Medicine; ATTEND Internal Medicine
DX: N17.0 Acute kidney failure with tubular necrosis (principal); I50.23 Acute on chronic systolic (congestive) heart failure; I13.0 Hypertensive heart and chronic kidney disease with heart failure and stage 1 through stage 4 chronic kidney disease, or unspecified chronic kidney disease; I16.0 Hypertensive urgency; K21.9 Gastro-esophageal reflux disease without esophagitis; E11.22 Type 2 diabetes mellitus with diabetic chronic kidney disease; N18.4 Chronic kidney disease, stage 4 (severe); D64.9 Anemia, unspecified; E11.51 Type 2 diabetes mellitus with diabetic peripheral angiopathy without gangrene; Z82.49 Family history of ischemic heart disease and other diseases of the circulatory system; Z83.3 Family history of diabetes mellitus; Z79.899 Other long term (current) drug therapy; Z89.512 Acquired absence of left leg below knee
CPT/HCPCS: 36415; 71046; 76770; 78452; 78582; 80048; 80053; 81001; 82570; 82728; 82962; 83036; 83550; 83735; 83880; 83970; 84100; 84156; 84300; 84436; 84439; 84443; 84484; 85007; 85025; 85027; 85610; 85730; 87040; 93005; 93010; 93017; 93306; 96374; G0378; A9502; A9540; A9558; J0360; J1644; J1815; J1940; J1956; J2270; J2785

== ENCOUNTER 2019-02-13 21:55 | Inpatient (IN) | payer MEDICAID ==
--- NOTE | 2019-02-13 22:11 | Event Note ---
ED Screening Note Date of service: 02/13/19 Time: 22:06 ED Screening Note: This is a 58 y.o. male that presents to the ER with RLE swelling and drainage for several days. PMH DM2, CHF, & HTN This initial assessment/diagnostic orders/clinical plan/treatment(s) is/are subject to change based on patients health status, clinical progression and re- assessment by fellow clinical providers in the ED. Further treatment and workup at subsequent clinical providers discretion. Patient/guardian urged not to elope from the ED as their condition may be serious if not clinically assessed and managed. Initial orders include: Labs
[2019-02-13 22:45] LABS: Basophils # (Auto) 0.1 K/mm3 (0.0-0.1); Basophils % (Auto) 1.1 % (0.0-1.8); Eosinophils # (Auto) 0.6 K/mm3 (0.0-0.4); Eosinophils % (Auto) 9.1 % (0.0-4.3); Hematocrit 30.2 % (35.5-45.6); Hemoglobin 9.5 gm/dl (11.8-15.2); Lymphocytes % (Auto) 33.4 % (13.4-35.0); Mean Corpuscular HGB Conc 32 % (32-34); Mean Corpuscular Volume 72 fl (84-94); Monocytes # (Auto) 0.4 K/mm3 (0.0-0.8); Monocytes % (Auto) 7.1 % (0.0-7.3); Platelet Count 306 K/mm3 (140-440); Red Blood Count 4.21 M/mm3 (3.65-5.03)
--- NOTE | 2019-02-13 22:46 | XRay Report ---
CHEST 2 VIEWS INDICATION: edema. COMPARISON: 11/21/2018. FINDINGS: Support devices: None. Heart: Within normal limits. Lungs/Pleura: Small basilar effusions with associated atelectasis and mild vascular congestion.. IMPRESSION: Findings similar to the previous exam. Signer Name: Norberto Horowitz MD Signed: 02/13/2019 10:42 PM Workstation Name: [id number]
[2019-02-13 23:01] LABS: Calcium 8.3 mg/dL (8.4-10.2)
[2019-02-14] MEDS ORDERED: CLEOCIN 600 MG/50 mL 600 MG/50 ML BAG IV ONE (01:43)
--- NOTE | 2019-02-14 04:59 | Emergency Department Report ---
ED Extremity Problem HPI - General Chief complaint: Extremity Injury, Lower Stated complaint: LEG PAIN Time Seen by Provider: 02/13/19 22:06 Source: patient Mode of arrival: Ambulatory Limitations: No Limitations - History of Present Illness Initial comments: 58-year-old male with a past medical history CHF, diabetes, GERD, hypertension, aunt left BKA amputation presents to the hospital complaining of right leg pain and drainage times several days. Swelling 2 days. No complaints of fever. No complaints of trauma. Patient states he supposedly follow up with a vascular surgeon but has not yet done so. Pain is mild to moderate and worse with pa lpation. PMD: Dr. Quach Severity scale (0 -10): 5 - Related Data Home Medications Medication Instructions Recorded Confirmed Last Taken Insulin Glargine [Lantus VIAL] 10 unit SUB-Q QHS 11/18/18 11/18/18 1 Week Ago ~11/11/18 Timolol 0.5% [Timoptic] 1 drops OP BID 11/18/18 11/18/18 11/18/18 10:00 raNITIdine HCl [Zantac] 150 mg PO DAILY 11/18/18 11/19/18 11/18/18 10:00 AtorvaSTATin 20 mg PO QHS 02/14/19 02/14/19 2 Days Ago ~02/12/19 Cetirizine HCl 10 mg PO DAILY 02/14/19 02/14/19 1 Day Ago ~02/13/19 Fluticasone 50 mcg INHALATION DAILY 02/14/19 02/14/19 02/13/19 Lisinopril 20 mg PO BID 02/14/19 02/14/19 1 Day Ago ~02/13/19 Previous Rx's Medication Instructions Recorded Last Taken Type Carvedilol [Coreg] 6.25 mg PO BID #60 tablet 11/22/18 Unknown Rx Furosemide [Lasix TAB] 20 mg PO BID@0600,1800 #60 tablet 11/22/18 Unknown Rx Allergies Allergy/AdvReac Type Severity Reaction Status Date / Time No Known Allergies Allergy Unverified 05/19/17 19:06 ED Review of Systems ROS: Stated complaint: LEG PAIN Other details as noted in HPI Comment: All other systems reviewed and negative ED Past Medical Hx - Past Medical History Hx Hypertension: Yes Hx Congestive Heart Failure: Yes Hx Diabetes: Yes Hx GERD: Yes Hx Asthma: No Additional medical history: LLL amputaion,poor vision - Surgical History Additional Surgical History: LLLA - Social History Smoking Status: Smoker, Current Status Unknown Substance Use Type: None - Medications Home Medications: Home Medications Medication Instructions Recorded Confirmed Last Taken Type Insulin Glargine [Lantus VIAL] 10 unit SUB-Q QHS 11/18/18 11/18/18 1 Week Ago History ~11/11/18 Timolol 0.5% [Timoptic] 1 drops OP BID 11/18/18 11/18/18 11/18/18 10:00 History raNITIdine HCl [Zantac] 150 mg PO DAILY 11/18/18 11/19/18 11/18/18 10:00 History Carvedilol [Coreg] 6.25 mg PO BID #60 tablet 11/22/18 Unknown Rx Furosemide [Lasix TAB] 20 mg PO BID@0600,1800 #60 tablet 11/22/18 Unknown Rx AtorvaSTATin 20 mg PO QHS 02/14/19 02/14/19 2 Days Ago History ~02/12/19 Cetirizine HCl 10 mg PO DAILY 02/14/19 02/14/19 1 Day Ago History ~02/13/19 Fluticasone 50 mcg INHALATION DAILY 02/14/19 02/14/19 02/13/19 History Lisinopril 20 mg PO BID 02/14/19 02/14/19 1 Day Ago History ~02/13/19 ED Physical Exam - General Limitations: No Limitations - Other Other exam information: General: No acute distress Eyes: Normal appearance, pupils equal reactive to light, extraocular movements intact ENT: Normal oropharynx Neck: Normal appearance, no C-spine tenderness, no meningismus Chest: Clear to auscultation bilaterally, no wheezes, rales, or crackles Cardiovascular: Regular rate and rhythm Abdomen: Soft, nondistended, nontender, no rebound or guarding, normal bowel sounds Back: Normal inspection, nontender Extremity: Left BKA, right lower leg erythema, edema, and warmth. Superficial ulcerations without active drainage. Unable to palpate DP or PT pulse of right leg but faintly able to auscultate them with Doppler. Patient also has surgical amputation of the right great toe. Neuro: Alert and oriented 3, speech clear, no gross motor or sensory deficit Skin: No rash, once, or erythema ED Course Vital Signs 02/13/19 02/14/19 02/14/19 22:20 01:30 01:45 Temperature 97.7 F 98.1 F Pulse Rate 91 H 87 Respiratory 18 16 16 Rate Blood Pressure 167/88 Blood Pressure 172/91 [Right] O2 Sat by Pulse 100 99 98 Oximetry 02/14/19 03:07 Temperature 98.4 F Pulse Rate 87 Respiratory 16 Rate Blood Pressure Blood Pressure 184/96 [Right] O2 Sat by Pulse 99 Oximetry ED Medical Decision Making - Lab Data Result diagrams: 02/13/19 22:27 02/13/19 22:27 Lab Results 02/13/19 02/13/19 02/13/19 Range/Units 22:27 22:27 22:27 WBC 6.1 (4.5-11.0) K/mm3 RBC 4.21 (3.65-5.03) M/mm3 Hgb 9.5 L (11.8-15.2) gm/dl Hct 30.2 L (35.5-45.6) % MCV 72 L (84-94) fl MCH 23 L (28-32) pg MCHC 32 (32-34) % RDW 19.0 H (13.2-15.2) % Plt Count 306 (140-440) K/mm3 Lymph % (Auto) 33.4 (13.4-35.0) % [place] % (Auto) 7.1 (0.0-7.3) % Eos % (Auto) 9.1 H (0.0-4.3) % Baso % (Auto) 1.1 (0.0-1.8) % Lymph # 2.0 (1.2-5.4) K/mm3 [place] # 0.4 (0.0-0.8) K/mm3 Eos # 0.6 H (0.0-0.4) K/mm3 Baso # 0.1 (0.0-0.1) K/mm3 Seg Neutrophils % 49.3 (40.0-70.0) % Seg Neutrophils # 3.0 (1.8-7.7) K/mm3 Sodium 137 (137-145) mmol/L Potassium 4.8 (3.6-5.0) mmol/L Chloride 104.2 (98-107) mmol/L Carbon Dioxide 24 (22-30) mmol/L Anion Gap 14 mmol/L BUN 35 H (9-20) mg/dL Creatinine 3.3 H (0.8-1.5) mg/dL Estimated GFR 23 ml/min BUN/Creatinine Ratio 11 % Glucose 295 H (75-100) mg/dL Calcium 8.3 L (8.4-10.2) mg/dL NT-Pro-B Natriuret Pep 6465 H (0-900) pg/mL - Radiology Data Radiology results: report reviewed CHEST 2 VIEWS INDICATION: edema. COMPARISON: 11/21/2018. FINDINGS: Support devices: None. Heart: Within normal limits. Lungs/Pleura: Small basilar effusions with associated atelectasis and mild vascular congestion.. IMPRESSION: Findings similar to the previous exam. - Medical Decision Making Patient is a diabetic with signs of acute cellulitis and likely has PAD. Treated in the ED with clindamycin and will be admitted for further treatment for cellulitis. - Differential Diagnosis cellulitis, DVT, venous stasis Critical Care Time: No Critical care attestation.: If time is entered above; I have spent that time in minutes in the direct care of this critically ill patient, excluding procedure time. ED Disposition Clinical Impression: Cellulitis of right leg, Diabetes, History of left below knee amputation, Amputated great toe of right foot, CRI (chronic renal insufficiency) Disposition: OP ADMIT IP TO THIS HOSP Is pt being admited?: Yes Condition: Stable Time of Disposition: 04:59 (Dr torres/hosp)
[2019-02-14] MEDS ORDERED: SODIUM CHLORIDE FLUSH SYRINGE 10 ML IV PRN (05:16)
[2019-02-14] MEDS ORDERED: ZOFRAN IV PRN (05:16)
[2019-02-14] MEDS ORDERED: D50W (25GM) Syringe IV PRN (05:27)
[2019-02-14] MEDS ORDERED: APRESOLINE IV PRN (05:59)
[2019-02-14] MEDS ORDERED: LASIX PO SCH (06:00)
--- NOTE | 2019-02-14 06:01 | History and Physical Report ---
History of Present Illness Date of examination: 02/14/19 Date of admission: 02/14/19 Chief complaint: Right Lower extremity swelling and pain History of present illness: 68-year-old male who is an ongoing everyday smoker with a past medical history CHF 30-35%, diabetes, GERD, hypertension, Left BKA, Rt great toe amputation, hypertension, who presents to [facility] ED with complaints of right lower extremity swelling for one and pain for the past week and drainage for the past 2 days. he describes his pain as mild to moderate and rate. 3-5/10. The pain is aggravated with palpation. A review of medical records shows pt supposed to see a vascular surgeon but has yet to do so. It is unclear as to why he hasn't followed up. Denies: fever, chills, recent trauma to leg, or recent sick contact Past History Past Medical History: diabetes, GERD, heart failure, hypertension, other (poor vision) Past Surgical History: Other (left BKA, right great toe amputation) Social history: smoking (activity smoker) Family history: no significant family history Medications and Allergies Allergies Allergy/AdvReac Type Severity Reaction Status Date / Time No Known Allergies Allergy Unverified 05/19/17 19:06 Home Medications Medication Instructions Recorded Confirmed Last Taken Type Insulin Glargine [Lantus VIAL] 10 unit SUB-Q QHS 11/18/18 02/14/19 1 Day Ago History ~02/13/19 Timolol 0.5% [Timoptic] 1 drops OP BID 11/18/18 02/14/19 02/13/19 History raNITIdine HCl [Zantac] 150 mg PO BID 11/18/18 02/14/19 1 Day Ago History ~02/13/19 Carvedilol [Coreg] 6.25 mg PO BID #60 tablet 11/22/18 02/14/19 02/13/19 Rx Furosemide [Lasix TAB] 20 mg PO BID@0600,1800 #60 tablet 11/22/18 02/14/19 1 Day Ago Rx ~02/13/19 AtorvaSTATin 20 mg PO QHS 02/14/19 02/14/19 2 Days Ago History ~02/12/19 Cetirizine HCl 10 mg PO DAILY 02/14/19 02/14/19 1 Day Ago History ~02/13/19 Fluticasone 50 mcg INHALATION DAILY 02/14/19 02/14/19 02/13/19 History Lisinopril 20 mg PO BID 02/14/19 02/14/19 1 Day Ago History ~02/13/19 Active Meds: Active Medications Acetaminophen (Tylenol) 650 mg PO Q4H PRN PRN Reason: Pain MILD(1-3)/Fever >100.5/YI Carvedilol (Coreg) 6.25 mg PO BID [facility] Dextrose (D50w (25gm) Syringe) 50 ml IV PRN PRN PRN Reason: Hypoglycemia Docusate Sodium (Colace) 100 mg PO BID [facility] Famotidine (Pepcid) 20 mg PO QAM [facility] Furosemide (Lasix) 20 mg PO BID@0600,1800 [facility] Heparin Sodium (Porcine) (Heparin) 5,000 unit SUB-Q Q12HR [facility] Ampicillin Sodium/Sulbactam Sodium (Unasyn/Ns 1.5 Gm/50 Ml) 1.5 gm in 50 mls @ 100 mls/hr IV Q6HR [facility]; Protocol Insulin Glargine (Lantus) 10 units SUB-Q QHS [facility] Insulin Human Regular (Humulin R) 0 units SUB-Q ACHS [facility]; Protocol Miscellaneous Medication (Atorvastatin) 20 mg PO QHS [facility] Miscellaneous Medication (Cetirizine Hcl) 10 mg PO DAILY [facility] Miscellaneous Medication (Fluticasone) 50 mcg INHALATION DAILY [facility] Miscellaneous Medication (Lisinopril) 20 mg PO BID [facility] Nicotine (Habitrol) 14 mg TD QDAY [facility] Ondansetron HCl (Zofran) 4 mg IV Q8H PRN PRN Reason: Nausea And Vomiting Oxycodone/Acetaminophen (Percocet 5/325) 1 tab PO Q6H PRN PRN Reason: Pain, Moderate (4-6) Sodium Chloride (Sodium Chloride Flush Syringe 10 Ml) 10 ml IV BID [facility] Sodium Chloride (Sodium Chloride Flush Syringe 10 Ml) 10 ml IV PRN PRN PRN Reason: LINE FLUSH Review of Systems All systems: negative (Reviewed and no additional remarkable complaints except as noted below) Integumentary: redness, sores (Rt lower extremity), wounds, foot/leg ulcers Exam - Physical Exam Narrative exam: Physical exam General appearance: Present: No acute distress, chronically ill-appearing, alert and oriented 3, -[place] adult female - EENT Eyes: Present: PERRL, EOM intact ENT: hearing intact, poor dentition - Neck Neck: Present: supple, normal ROM - Respiratory Respiratory effort: Non-labored Respiratory: CTA Bilaterally - Cardiovascular Heart rate: 91 (bpm) Rhythm: SR Heart Sounds: Present: S1 & S2. Absent: rub, click - Extremities Extremities: no ischemia, pulses intact, abnormal (left BKA, right lower extremity cellulitis, right great toe amputation - Peripheral Assessment Peripheral Pulses: ,faint pulses on Doppler - Abdominal General gastrointestinal: soft, non-tender, normal bowel sounds - Integumentary Integumentary: Present: warm, dry - Musculoskeletal Musculoskeletal: able to move all strategies - Psychiatric Psychiatric: cooperative - Constitutional Vitals: Temp Pulse Resp BP Pulse Ox 98.4 F 81 16 174/94 98 02/14/19 03:07 02/14/19 05:24 02/14/19 05:24 02/14/19 05:24 02/14/19 05:24 Results - Labs CBC & Chem 7: 02/13/19 22:27 02/13/19 22:27 Labs: Laboratory Last Values WBC 6.1 K/mm3 (4.5-11.0) 02/13/19 22:27 RBC 4.21 M/mm3 (3.65-5.03) 02/13/19 22:27 Hgb 9.5 gm/dl (11.8-15.2) L 02/13/19 22:27 Hct 30.2 % (35.5-45.6) L 02/13/19 22:27 MCV 72 fl (84-94) L 02/13/19 22:27 MCH 23 pg (28-32) L 02/13/19 22:27 MCHC 32 % (32-34) 02/13/19 22:27 RDW 19.0 % (13.2-15.2) H 02/13/19 22:27 Plt Count 306 K/mm3 (140-440) 02/13/19 22:27 Lymph % (Auto) 33.4 % (13.4-35.0) 02/13/19 22:27 [place] % (Auto) 7.1 % (0.0-7.3) 02/13/19 22:27 Eos % (Auto) 9.1 % (0.0-4.3) H 02/13/19 22:27 Baso % (Auto) 1.1 % (0.0-1.8) 02/13/19 22:27 Lymph # 2.0 K/mm3 (1.2-5.4) 02/13/19 22:27 [place] # 0.4 K/mm3 (0.0-0.8) 02/13/19 22:27 Eos # 0.6 K/mm3 (0.0-0.4) H 02/13/19 22:27 Baso # 0.1 K/mm3 (0.0-0.1) 02/13/19 22:27 Seg Neutrophils % 49.3 % (40.0-70.0) 02/13/19 22: Seg Neutrophils # 3.0 K/mm3 (1.8-7.7) 02/13/19 22:27 Sodium 137 mmol/L (137-145) 02/13/19 22:27 Potassium 4.8 mmol/L (3.6-5.0) 02/13/19 22:27 Chloride 104.2 mmol/L (98-107) 02/13/19 22:27 Carbon Dioxide 24 mmol/L (22-30) 02/13/19 22:27 14 mmol/L 02/13/19 22:27 BUN 35 mg/dL (9-20) H 02/13/19 22:27 3.3 mg/dL (0.8-1.5) H 02/13/19 22:27 Estimated GFR 23 ml/min 02/13/19 22:27 11 % 02/13/19 22:27 Glucose 295 mg/dL (75-100) H 02/13/19 22:27 9.2 % (4-6) H 02/14/19 Unknown Calcium 8.3 mg/dL (8.4-10.2) L 02/13/19 22:27 NT-Pro-B Natriuret Pep 6465 pg/mL (0-900) H 02/13/19 22:27 - Imaging and Cardiology EKG: image reviewed (SR 91 bpm) Chest x-ray: report reviewed (Lungs/Pleura: Small basilar effusions with associated atelectasis and mild vascular congestion.. ), image reviewed Assessment and Plan Assessment and plan: 68-year-old male who is an ongoing everyday smoker with a past medical history CHF 30-35%, diabetes, GERD, hypertension, Left BKA, Rt great toe amputation, hypertension, who presents to [facility] ED with complaints of right lower extremity swelling for one and pain for the past week and drainage for the past 2 days. Cellulitis of right lower extremity ??PAD -Faint pulse on Doppler -Bialteral Arterial Doppler pending -Vascular consulted -Start IV Unasyn -ID consulted -Wound care consulted Acute on Chronic Renal Failure -Creatinine on admission 3.3, trending up from 2.4 (on 11/23/18) -Avoid Nephro toxin agents - Renal dose all meds -Nephrology consulted DM2 -uncontrolled -HgbA1c pending -SSI coverage -Scheduled Lantus Chronic Anemia -Hgb on admission 9.5 -No s/s of active bleeding -Continue to monitor Hgb, transfuse prn HTN -Monitor BP -Continue hypertensive meds to optimize BP Hx PVD -S/P Left BKA Systolic HF -EF 30-35% on Echo (10/2018) -Resume HF, but hold Lasix d/t worsening creatinine -Cardiology Consulted GERD -Continue PPI Moderate Pulmonary HTN DVT PPX -On heparin Advance Directives: No VTE prophylaxis?: Chemical Plan of care discussed with patient/family: Yes
--- NOTE | 2019-02-14 06:19 | Event Note ---
58-year-old man with history of hypertension diabetes and GERD, systolic heart failure with EF of 30% who presented to the hospital complaining of right leg pain and drainage for 2 days. Patient was supposed to see a vascular surgeon but has yet to do so, history of PAD with left lower extremity BKA, currently every day smoker Right leg infection; vascular consult, antibiotics, wound care, ID consult, vascular arterial ultrasound of lower extremities Acute on chronic kidney disease, vasomotor nephropathy; avoid nephrotoxins, hold lasix for now, nephrology consult Chronic systolic CHF; cardiology consult, keep euvolemic Tobacco abuse, cessation counseling done 11 mins, preventative health counseling 17 mins Type 2 diabetes with hyperglycemia, A1c is 8.3, optimizing insulin
[2019-02-14] MEDS ORDERED: LASIX ONE (06:49)
[2019-02-14] MEDS ORDERED: HumuLIN R ONE (07:37)
[2019-02-14] MEDS: HumuLIN R SUB-Q SCH ×4 (07:39→22:03)
[2019-02-14] MEDS: HEPARIN SUB-Q SCH ×2 (10:00→22:01)
[2019-02-14] MEDS ORDERED: UNASYN/NS 1.5 GM/50 ML 1.5 GM/50 ML BAG IV SCH (10:00)
--- NOTE | 2019-02-14 10:07 | Consultation ---
History of Present Illness - Reason for Consult Consult date: 02/14/19 acute renal failure, chronic renal failure - History of Present Illness The patient is a 58 YO male who is known to our service from prior admission with history significant for HTN, DM type 2, GERD, CKD, PAD s/p L BKA, systolic CHF with EF 30% and Tobacco use who presented to [facility] ED complaining of right leg pain and drainage for 2 days. Patient was supposed to see a vascular surgeon but has yet to do so. He is poor historian. Pt denies fever, chills, CP, N, V, D, abd pain, hemoptysis, dizziness, syncope, dysuria or hematuria. Creatinine was 3.3 on admission, increased from 2.4 in October 2018. Nephrology was consulted for further evaluation. Past History Past Medical History: diabetes, GERD, heart failure, hypertension, renal failure, other (poor vision) Past Surgical History: Other (left BKA, right great toe amputation) Social history: smoking (activity smoker) Family history: no significant family history Medications and Allergies Allergies Allergy/AdvReac Type Severity Reaction Status Date / Time No Known Allergies Allergy Unverified 05/19/17 19:06 Home Medications Medication Instructions Recorded Confirmed Last Taken Type Insulin Glargine [Lantus VIAL] 10 unit SUB-Q QHS 11/18/18 02/14/19 1 Day Ago History ~02/13/19 Timolol 0.5% [Timoptic] 1 drops OP BID 11/18/18 02/14/19 02/13/19 History raNITIdine HCl [Zantac] 150 mg PO BID 11/18/18 02/14/19 1 Day Ago History ~02/13/19 Carvedilol [Coreg] 6.25 mg PO BID #60 tablet 11/22/18 02/14/19 02/13/19 Rx Furosemide [Lasix TAB] 20 mg PO BID@0600,1800 #60 tablet 11/22/18 02/14/19 1 Day Ago Rx ~02/13/19 AtorvaSTATin 20 mg PO QHS 02/14/19 02/14/19 2 Days Ago History ~02/12/19 Cetirizine HCl 10 mg PO DAILY 02/14/19 02/14/19 1 Day Ago History ~02/13/19 Fluticasone 50 mcg INHALATION DAILY 0802/14/19 02/13/19 History Lisinopril 20 mg PO BID 02/14/19 02/14/19 1 Day Ago History ~02/13/19 Active Meds: Active Medications Acetaminophen (Tylenol) 650 mg PO Q4H PRN PRN Reason: Pain MILD(1-3)/Fever >100.5/YI Atorvastatin Calcium (Lipitor) 20 mg PO QHS [facility] Carvedilol (Coreg) 6.25 mg PO BID [facility] Dextrose (D50w (25gm) Syringe) 50 ml IV PRN PRN PRN Reason: Hypoglycemia Docusate Sodium (Colace) 100 mg PO BID [facility] Famotidine (Pepcid) 20 mg PO QAM [facility] Fluticasone Propionate (Flonase) 50 mcg NS DAILY [facility] Heparin Sodium (Porcine) (Heparin) 5,000 unit SUB-Q Q12HR [facility] Hydralazine HCl (Apresoline) 10 mg IV Q4H PRN PRN Reason: Blood Pressure Hydralazine HCl (Apresoline) 50 mg PO Q8HR [facility] Ampicillin Sodium/Sulbactam Sodium (Unasyn/Ns 1.5 Gm/50 Ml) 1.5 gm in 50 mls @ 100 mls/hr IV Q12HR [facility]; Protocol Insulin Glargine (Lantus) 10 units SUB-Q QHS [facility] Insulin Human Regular (Humulin R) 0 units SUB-Q ACHS [facility]; Protocol Last Admin: 02/14/19 07:39 Dose: 2 units Documented by: Lisinopril (Zestril) 20 mg PO BID [facility] Loratadine (Claritin) 10 mg PO DAILY [facility] Nicotine (Habitrol) 14 mg TD QDAY [facility] Ondansetron HCl (Zofran) 4 mg IV Q8H PRN PRN Reason: Nausea And Vomiting Oxycodone/Acetaminophen (Percocet 5/325) 1 tab PO Q6H PRN PRN Reason: Pain, Moderate (4-6) Sodium Chloride (Sodium Chloride Flush Syringe 10 Ml) 10 ml IV BID [facility] Sodium Chloride (Sodium Chloride Flush Syringe 10 Ml) 10 ml IV PRN PRN PRN Reason: LINE FLUSH Review of Systems Constitutional: no weight loss, no weight gain, no fever, no chills, no anorexia, no fatigue, no weakness, no poor appetite Cardiovascular: edema, high blood pressure, leg edema, no chest pain, no orthopnea, no syncope, no lightheadedness, no shortness of breath Respiratory: no cough, no hemoptysis, no shortness of breath Gastrointestinal: no abdominal pain, no nausea, no vomiting, no diarrhea, no melena Genitourinary Male: no dysuria, no hematuria Integumentary: sores, wounds Neurological: no paralysis, no weakness, no seizures, no aphasia, no change in speech, no change in mentation, no confusion, no memory loss Exam - Vital Signs Vital signs: Vital Signs Temp Pulse Resp BP Pulse Ox 97.7 F 91 H 18 167/88 100 02/13/19 22:20 02/13/19 22:20 02/13/19 22:20 02/13/19 22:20 02/13/19 22:20 - General Appearance General appearance: well-developed, well-nourished, appears stated age, other (no distress) EENT: ATNC, PERRL, mucous membranes moist, hearing intact, vision intact Neck: Present: neck supple, trachea midline Respiratory: Rales (scattered) Heart: regular, S1S2, no murmurs Gastrointestinal: Present: normoactive bowel sounds. Absent: tenderness, distended Integumentary: ulcer (R leg), other (R leg warm and erythematous) Neurologic: no focal deficit, no asterixis, alert and oriented x3 Musculoskeletal: Present: other (R leg edematous, L BKA, L great toe amputated) Results - Lab Results 02/15/19 06:23 02/15/19 06:23 Most recent lab results Calcium 8.3 mg/dL (8.4-10.2) L 02/13/19 22:27 Assessment and Plan 1. Acute kidney injury: Likely vasomotor BATOOL superimposed on CKD in the setting of Cellulitis. Monitor renal function. Renal prognosis is guarded. Avoid nephrotoxic agents. Meds dosage based on GFR. 2. FEN: Monitor lytes. 3. R LE cellulitis / superficial wound: Followed by ID. 4. HTN: Monitor BP. 5. Systolic CHF. 6. Microcytic Anemia: POA. 7. DM-2.
[2019-02-14] MEDS: COREG PO SCH ×2 (10:56→21:58)
[2019-02-14] MEDS: CLARITIN PO SCH (10:56)
[2019-02-14] MEDS: ZESTRIL PO SCH ×2 (10:57→21:57)
[2019-02-14] MEDS: COLACE PO SCH ×2 (10:57→22:01)
[2019-02-14] MEDS: APRESOLINE PO SCH ×3 (10:57→22:00)
[2019-02-14] MEDS: PEPCID PO SCH (10:57)
[2019-02-14] MEDS: HABITROL TD SCH (10:57)
[2019-02-14] MEDS: SODIUM CHLORIDE FLUSH SYRINGE 10 ML IV SCH ×2 (10:57→22:04)
--- NOTE | 2019-02-14 11:47 | Consultation ---
History of Present Illness - Reason for Consult Consult date: 02/14/19 Celulitis Requesting physician: KRARIE TORREZ - History of Present Illness This patient is a 58-year-old male with a past medical history of CHF, Type 2 DM, GERD, hypertension, Left BKA, right great toe amputation who presents to ED on 02/13/19 with complaints of right lower extremity swelling and pain for the past 1 week and drainage for the past 2 days. .Patient was referred to see a vascular surgeon but has been non-compliant. On admission WBC 6.1, Creat inine3.3, HbA1C 9.2, Temperature 97.6, HR 91, BP 172/91. CXR shows no consolidation. Duplex scan shows monophasic flow in the posterior tibial and anterior tibial arteries the right lower extremity that is indicative of disease in the runoff vessels which may be hemodynamically significant.. No DVT. Patient is a poor historian. He states that a week ago he fell and scraped his right lower leg. He noticed a foul odor and drainage 2 days ago with accompanying swelling and tenderness. He had left BKA several years ago and right great toe amputation approximately one year ago. He denies tobacco, alcohol or illegal drug use. Review of Systems: General: no fever, chills, nightsweats, unintentional weight change, or change in appetite Cutaneous: no rash, pruritus Head: no headaches or injury Eyes: no changes in vision, eye pain, double vision Ears: no ear pain, ear discharge, ringing or hearing loss Nose: no nose bleeding, stuffiness Mouth & throat: no bleeding gums, no horseness, no dental problems, or swollen glands Neck: no pain, node enlargement/lumps, tyroid enlargement or tenderness Respiratory: no cough, wheezing, sputum, hemoptysis, pleuritic chest pain Cardiovascular: no chest pain, leg edema, cyanosis, MCALLISTER, orthopnea Musculoskeletal: Left BKA. Great Right toe amputation. Superficial wound on right lower extremity., edematous with mild tenderness Gastrointestinal: no nausea, vomiting, hematemesis, diarrhea, constipation, melena, bright red blood in stools, fecal incontinence, jaundice Genitourinary/Reproductive: no frequent urination, no dysuria, hematuria, incontinence Neurogical: no seizures, no headaches, no weakness, no paresthesias, no loss of speech or vision; no memory loss, no vertigo, no tremors, no numbness Psychiatric: stable mood; no excessive anxiety, sadness or moodiness Past History Past Medical History: diabetes, GERD, heart failure, hypertension, other (poor vision) Past Surgical History: Other (left BKA, right great toe amputation) Social history: smoking (activity smoker) Family history: no significant family history Medications and Allergies Allergies Allergy/AdvReac Type Severity Reaction Status Date / Time No Known Allergies Allergy Unverified 05/19/17 19:06 Home Medications Medication Instructions Recorded Confirmed Last Taken Type Insulin Glargine [Lantus VIAL] 10 unit SUB-Q QHS 11/18/18 02/14/19 1 Day Ago History ~02/13/19 Timolol 0.5% [Timoptic] 1 drops OP BID 11/18/18 02/14/19 02/13/19 History raNITIdine HCl [Zantac] 150 mg PO BID 11/18/18 02/14/19 1 Day Ago History ~02/13/19 Carvedilol [Coreg] 6.25 mg PO BID #60 tablet 11/22/18 02/14/19 02/13/19 Rx Furosemide [Lasix TAB] 20 mg PO BID@0600,1800 #60 tablet 11/22/18 02/14/19 1 Day Ago Rx ~02/13/19 AtorvaSTATin 20 mg PO QHS 02/14/19 02/14/19 2 Days Ago History ~02/12/19 Cetirizine HCl 10 mg PO DAILY 02/14/19 02/14/19 1 Day Ago History ~02/13/19 Fluticasone 50 mcg INHALATION DAILY 02/14/19 02/14/19 02/13/19 History Lisinopril 20 mg PO BID 02/14/19 02/14/19 1 Day Ago History ~02/13/19 Active Meds: Active Medications Acetaminophen (Tylenol) 650 mg PO Q4H PRN PRN Reason: Pain MILD(1-3)/Fever >100.5/YI Atorvastatin Calcium (Lipitor) 20 mg PO QHS [facility] Carvedilol (Coreg) 6.25 mg PO BID [facility] Last Admin: 02/14/19 10:56 Dose: 6.25 mg Documented by: Dextrose (D50w (25gm) Syringe) 50 ml IV PRN PRN PRN Reason: Hypoglycemia Docusate Sodium (Colace) 100 mg PO BID [facility] Last Admin: 02/14/19 10:57 Dose: 100 mg Documented by: Famotidine (Pepcid) 20 mg PO QAM [facility] Last Admin: 02/14/19 10:57 Dose: 20 mg Documented by: Fluticasone Propionate (Flonase) 50 mcg NS DAILY [facility] Heparin Sodium (Porcine) (Heparin) 5,000 unit SUB-Q Q12HR [facility] Hydralazine HCl (Apresoline) 10 mg IV Q4H PRN PRN Reason: Blood Pressure Hydralazine HCl (Apresoline) 50 mg PO Q8HR [facility] Last Admin: 02/14/19 10:57 Dose: 50 mg Documented by: Ampicillin Sodium/Sulbactam Sodium (Unasyn/Ns 1.5 Gm/50 Ml) 1.5 gm in 50 mls @ 100 mls/hr IV Q12HR [facility]; Protocol Last Admin: 02/14/19 11:16 Dose: 100 mls/hr Documented by: Insulin Glargine (Lantus) 10 units SUB-Q QHS [facility] Insulin Human Regular (Humulin R) 0 units SUB-Q ACHS [facility]; Protocol Last Admin: 02/14/19 07:39 Dose: 2 units Documented by: Lisinopril (Zestril) 20 mg PO BID [facility] Last Admin: 02/14/19 10:57 Dose: 20 mg Documented by: Loratadine (Claritin) 10 mg PO DAILY [facility] Last Admin: 02/14/19 10:56 Dose: 10 mg Documented by: Nicotine (Habitrol) 14 mg TD QDAY [facility] Last Admin: 02/14/19 10:57 Dose: Not Given Documented by: Ondansetron HCl (Zofran) 4 mg IV Q8H PRN PRN Reason: Nausea And Vomiting Oxycodone/Acetaminophen (Percocet 5/325) 1 tab PO Q6H PRN PRN Reason: Pain, Moderate (4-6) Sodium Chloride (Sodium Chloride Flush Syringe 10 Ml) 10 ml IV BID [facility] Last Admin: 02/14/19 10:57 Dose: 10 ml Documented by: Sodium Chloride (Sodium Chloride Flush Syringe 10 Ml) 10 ml IV PRN PRN PRN Reason: LINE FLUSH Physical Examination - Physical Exam Narrative exam: Constitutional: Alert, cooperative. No acute distress Head, Ears, Nose: Normocephalic, atraumatic. External ears, nose normal Eyes: Conjunctivae/corneas clear. No icterus. No ptosis. Neck: Supple, no meningeal signs Oral: dentition poor.. No thrush. oral mucosa moist Cardiovascular: S1, S2 normal. Respiratory: Good air entry, clear to auscultation bilaterally GI: Soft, non-tender; bowel sounds normal. No peritoneal signs Musculoskeletal: Left BKA. Great Right toe amputation. Superficial wound on right lower extremity., edematous with mild tenderness Skin: No rash or abscess. Dry skin Hem/Lymphatic: No palpable cervical or supraclavicular nodes. No lymphangitis Psych: Mood ok. Affect normal Neurological: Awake, alert, oriented. - Constitutional Vitals: Vital Signs Temp Pulse Resp BP Pulse Ox 98.4 F 80 16 206/115 97 02/14/19 03:07 02/14/19 10:57 02/14/19 07:09 02/14/19 10:56 02/14/19 07:09 Temperature -Last 24 Hours Temperature 98.4 F Temperature 98.1 F Temperature 97.7 F Results - Labs CBC & Chem 7: 02/13/19 22:27 02/13/19 22:27 Labs: Abnormal lab results 02/13/19 02/13/19 02/13/19 Range/Units 22:27 22:27 22:27 Hgb 9.5 L (11.8-15.2) gm/dl Hct 30.2 L (35.5-45.6) % MCV 72 L (84-94) fl MCH 23 L (28-32) pg RDW 19.0 H (13.2-15.2) % Eos % (Auto) 9.1 H (0.0-4.3) % Eos # 0.6 H (0.0-0.4) K/mm3 BUN 35 H (9-20) mg/dL Creatinine 3.3 H (0.8-1.5) mg/dL Glucose 295 H (75-100) mg/dL POC Glucose (70-105) Hemoglobin A1c (4-6) % Calcium 8.3 L (8.4-10.2) mg/dL NT-Pro-B Natriuret Pep 6465 H (0-900) pg/mL 02/14/19 02/14/19 Range/Units 07:39 Unknown Hgb (11.8-15.2) gm/dl Hct (35.5-45.6) % MCV (84-94) fl MCH (28-32) pg RDW (13.2-15.2) % Eos % (Auto) (0.0-4.3) % Eos # (0.0-0.4) K/mm3 BUN (9-20) mg/dL Creatinine (0.8-1.5) mg/dL Glucose (75-100) mg/dL POC Glucose 179 H (70-105) Hemoglobin A1c 9.2 H (4-6) % Calcium (8.4-10.2) mg/dL NT-Pro-B Natriuret Pep (0-900) pg/mL - Imaging and Cardiology Chest x-ray: report reviewed (No consolidation) Assessment and Plan Cultures not drawn 58-year-old male with a past medical history of CHF, Type 2 DM, GERD, hypertension, Left BKA, right great toe amputation who presents to ED on 02/13/19 with complaints of right lower extremity swelling and pain for the past 1 week and drainage for the past 2 days. Admitted with : 1. Mild Cellulitis Right Lower Extremity with Ischemia. Superficial wound. No odor or drainage. Duplex scan shows monophasic flow in the posterior tibial and anterior tibial arteries the right lower extremity that is indicative of disease in the runoff vessels which may be hemodynamically significant.. No DVT. History of Left BKA. Right great toe amputation. Recommend vascular consult. Currently being treated with Unasyn. Will discontinue and start renally adjusted Daptomycin. 2. Acute on Chronic renal failure; antibiotics renally dosed 3. Type 2 Diabetes: uncontrolled. Admission HgA1C 9.2. Recommend tight glycemic control 4. Chronic Anemia 5. Hx of PVD Recommendations: -Discontinue Unasyn -Start Damptomycin 500mg every 48 hours -Anticipate discharge on oral antibiotics -Recommend vascular consult in light of duplex scan results [facility] M: [phone] O:[phone]
--- NOTE | 2019-02-14 12:36 | Vascular Lab Report ---
DUPLEX DOPPLER LOWER EXTREMITY VEINS, LEFT INDICATION: swelling RLE. TECHNIQUE: Duplex doppler imaging was performed through the veins of the left lower extremity using venous compr ession and other maneuvers. COMPARISON: None available. FINDINGS: Common Femoral vein: Negative. Superficial Femoral vein: Negative. Popliteal vein: Negative. Calf veins: Negative. Additional findings: None. IMPRESSION: 1. No sonographic evidence for DVT in the left lower extremity. Signer Name: Chencho Gutierrez MD Signed: 02/14/2019 12:31 PM Workstation Name: [id number]
--- NOTE | 2019-02-14 13:04 | Progress Note ---
Assessment and Plan Assessment and plan: 58-year-old man with history of hypertension diabetes and GERD, systolic heart failure with EF of 30% who presented to the hospital complaining of right leg pain and drainage for 2 days. Patient was supposed to see a vascular surgeon but has yet to do so, history of PAD with left lower extremity BKA, currently every day smoker Right leg infection; vascular consult, antibiotics, wound care, ID consult- continue abx, vascular arterial ultrasound of lower extremities Acute on chronic kidney disease, vasomotor nephropathy; avoid nephrotoxins, hold lasix for now, nephrology consult. per admant about not having dialysis HTN: Stable Chronic systolic CHF; cardiology consult, keep euvolemic Tobacco abuse, cessation counseling done 11 mins, preventative health counseling 17 mins left lower ext BKA Right lower ext cellulitis: Continue abx, ID following. Type 2 diabetes with hyperglycemia, A1c is 8.3, optimizing insulin History Interval history: Patient seen and examined today. no new complaints. but very adamant that he will no do any dialysis. Reports some mild improvement in lower ext swelling Hospitalist Physical - Constitutional Vitals: Temp Pulse Resp BP Pulse Ox 98.2 F 80 20 206/115 97 02/14/19 08:29 02/14/19 10:57 02/14/19 08:29 02/14/19 10:56 02/14/19 07:09 General appearance: Present: no acute distress, well-nourished - EENT Eyes: Present: PERRL ENT: hearing intact - Neck Neck: Present: supple, normal ROM - Respiratory Respiratory effort: normal Respiratory: bilateral: CTA - Cardiovascular Rhythm: regular Heart Sounds: Present: S1 & S2. Absent: systolic murmur - Extremities Extremities: abnormal (left bka) Extremity abnormal: edema, ulceration (right lower ext), pulses diminished (right lower ext) Peripheral Pulses: within normal limits - Abdominal General gastrointestinal: soft, non-tender, non-distended, normal bowel sounds - Integumentary Integumentary: Present: dry, erythema (right ankle), pale - Psychiatric Psychiatric: appropriate mood/affect, memory intact, cooperative - Neurologic Neurologic: CNII-XII intact - Allied Health Allied health notes reviewed: nursing Results - Labs CBC & Chem 7: 02/13/19 22:27 02/13/19 22:27 Labs: Laboratory Last Values WBC 6.1 K/mm3 (4.5-11.0) 02/13/19: RBC 4.21 M/mm3 (3.65-5.03) 02/13/19: Hgb 9.5 gm/dl (11.8-15.2) L 02/13/19: Hct 30.2 % (35.5-45.6) L 02/13/19: MCV 72 fl (84-94) L 02/13/19: MCH 23 pg (28-32) L 02/13/19: MCHC 32 % (32-34) 02/13/19: RDW 19.0 % (13.2-15.2) H 02/13/19: Plt Count 306 K/mm3 (140-440) 02/13/19: Lymph % (Auto) 33.4 % (13.4-35.0) 02/13/19: [place] % (Auto) 7.1 % (0.0-7.3) 02/13/19: Eos % (Auto) 9.1 % (0.0-4.3) H 02/13/19: Baso % (Auto) 1.1 % (0.0-1.8) 02/13/19: Lymph # 2.0 K/mm3 (1.2-5.4) 02/13/19: [place] # 0.4 K/mm3 (0.0-0.8) 02/13/19: Eos # 0.6 K/mm3 (0.0-0.4) H 02/13/19: Baso # 0.1 K/mm3 (0.0-0.1) 02/13/19: Seg Neutrophils % 49.3 % (40.0-70.0) 02/13/19: Seg Neutrophils # 3.0 K/mm3 (1.8-7.7) 02/13/19 22: Sodium 137 mmol/L (137-145) 02/13/19: Potassium 4.8 mmol/L (3.6-5.0) 02/13/19: Chloride 104.2 mmol/L (98-107) 08/14/19 22:27 Carbon Dioxide 24 mmol/L (22-30) 02/13/19 22:27 14 mmol/L 02/13/19 22:27 BUN 35 mg/dL (9-20) H 02/13/19 22:27 3.3 mg/dL (0.8-1.5) H 02/13/19 22:27 Estimated GFR 23 ml/min 02/13/19 22:27 11 % 02/13/19 22:27 Glucose 295 mg/dL (75-100) H 02/13/19 22:27 POC Glucose 179 (70-105) H 02/14/19 07:39 9.2 % (4-6) H 02/14/19 Unknown Calcium 8.3 mg/dL (8.4-10.2) L 02/13/19 22:27 NT-Pro-B Natriuret Pep 6465 pg/mL (0-900) H 02/13/19 22:27 Active Medications - Current Medications Current Medications: Generic Name Dose Route Start Last Admin Trade Name Freq PRN Reason Stop Dose Admin Acetaminophen 650 mg 02/14/19 05:16 Tylenol PO Q4H PRN Pain MILD(1-3)/Fever >100.5/YI Atorvastatin Calcium 20 mg 02/14/19 22:00 Lipitor PO QHS [facility] Carvedilol 6.25 mg 02/14/19 10:00 02/14/19 10:56 Coreg PO 6.25 mg BID ANJELICA Administration Dextrose 50 ml 02/14/19 05:27 D50w (25gm) Syringe IV PRN PRN Hypoglycemia Docusate Sodium 100 mg 02/14/19 10:00 02/14/19 10:57 Colace PO 100 mg BID [facility]JELICA Administration Famotidine 20 mg 02/14/19 10:00 02/14/19 10:57 Pepcid PO 20 mg QAM [facility] Administration Fluticasone Propionate 50 mcg 02/14/19 10:00 Flonase NS DAILY [facility] Heparin Sodium (Porcine) 5,000 unit 02/14/19 10:00 Heparin SUB-Q Q12HR [facility] Hydralazine HCl 10 mg 02/14/19 05:59 Apresoline IV Q4H PRN Blood Pressure Hydralazine HCl 50 mg 02/14/19 10:00 02/14/19 10:57 Apresoline PO 50 mg Q8HR [facility] Administration Ampicillin Sodium/Sulbactam Sodium 1.5 gm in 50 mls @ 100 mls/hr 02/14/19 10 :00 02/14/19 11:16 Unasyn/Ns 1.5 Gm/50 Ml IV 100 mls/hr Q12HR [facility] Administration Protocol Insulin Glargine 10 units 02/14/19 22:00 Lantus SUB-Q QHS [facility] Insulin Human Regular 0 units 02/14/19 07:30 02/14/19 07:39 Humulin R SUB-Q 2 units ACHS [facility] Administration Protocol Lisinopril 20 mg 02/14/19 10:00 02/14/19 10:57 Zestril PO 20 mg BID [facility] Administration Loratadine 10 mg 02/14/19 10:00 02/14/19 10:56 Claritin PO 10 mg DAILY [facility] Administration Nicotine 14 mg 02/14/19 10:00 02/14/19 10:57 Habitrol TD Not Given QDAY [facility] Ondansetron HCl 4 mg 02/14/19 05:16 Zofran IV Q8H PRN Nausea And Vomiting Oxycodone/Acetaminophen 1 tab 02/14/19 05:16 Percocet 5/325 PO Q6H PRN Pain, Moderate (4-6) Sodium Chloride 10 ml 02/14/19 10:00 02/14/19 10:57 Sodium Chloride Flush Syringe 10 Ml IV 10 ml BID [facility] Administration Sodium Chloride 10 ml 02/14/19 05:16 Sodium Chloride Flush Syringe 10 Ml IV PRN PRN LINE FLUSH
--- NOTE | 2019-02-14 13:25 | Vascular Lab Report ---
DUPLEX DOPPLER LOWER EXTREMITY ARTERIAL, BILATERAL INDICATION: faint pulse on doppler, lt BKA. TECHNIQUE: Arterial duplex examination of both lower extremities performed using B-mode, color flow and spectral Doppler assessment. FINDINGS: RIGHT: Common Femoral Artery: PSV 71 cm/sec. Triphasic waveform. Proximal SFA: PSV 71 cm/sec. Triphasic waveform. Mid SFA: PSV 58 cm/sec. 100 waveform. Distal SFA: PSV 60 cm/sec. Triphasic waveform. Popliteal artery: PSV 69 cm/sec. Triphasic waveform. Posterior tibial artery: PSV 40 cm/sec. Monophasic waveform. Dorsalis Pedis Artery: PSV 15 cm/sec. Monophasic waveform. LEFT: Common Femoral Artery: PSV 58 cm/sec. Triphasic waveform. Proximal SFA: PSV 45 cm/sec. Triphasic waveform. Mid SFA: PSV 33 cm/sec. Triphasic waveform. Distal SFA: PSV 20 cm/sec. Triphasic waveform. Popliteal artery: PSV 33 cm/sec. Triphasic waveform. LEFT BKA IMPRESSION: 1. Monophasic flow in the posterior tibial and anterior tibial arteries the right lower extremity is indicative of disease in the runoff vessels which may be hemodynamically significant. No hemodynamica lly significant stenosis is seen in the right lower extremity from the groin to the popliteal artery. No hemodynamically significant stenosis is seen in the left lower extremity. There has been prior BKA on the left Doppler Waveform: * Triphasic is normal. * Biphasic is abnormal if clear transition from triphasic signal along vascular tree. * Monophasic is abnormal. Signer Name: Tang Joaquin MD Signed: 02/14/2019 1:20 PM Workstation Name: [id number]
[2019-02-14] MEDS: TYLENOL PO PRN (14:50)
[2019-02-14] MEDS ORDERED: DAPTOmycin 500 MG in NACL 0.9% 100 ML IV SCH (16:00)
--- NOTE | 2019-02-14 16:26 | Consultation ---
History of Present Illness - Reason for Consult Consult date: 02/14/19 RLE cellulitis - History of Present Illness 58-year-old male with a past medical history of CHF, Type 2 DM, GERD, hypertensi on, Left BKA, right great toe amputation who presents to ED on 02/13/19 with complaints of right lower extremity swelling and pain for the past 1 week and drainage for the past 2 days. .Patient was referred to see a vascular surgeon but has been non-compliant. On admission WBC 6.1, Creatinine3.3, HbA1C 9.2, Temperature 97.6, HR 91, BP 172/91. CXR shows no consolidation. Duplex scan shows monophasic flow in the posterior tibial and anterior tibial arteries the right lower extremity that is indicative of disease in the runoff vessels which may be hemodynamically significant.. No DVT. Patient is a poor historian. He states that a week ago he fell and scraped his right lower leg. He noticed a foul odor and drainage 2 days ago with accompanying swelling and tenderness. He had left BKA several years ago and right great toe amputation approximately one year ago. He denies tobacco, al cohol or illegal drug use. Vascular was consult. Patient has full motor and sensory function of the right foot. He also denies pain. He reports that he predominantly came for the swelling. He has cellulitis of the right calf around a small wound of the anterior lower calf. Vascular ultrasound was performed demonstrating compromised infrapopliteal flow. Review of Systems: General: no fever, chills, nightsweats, unintentional weight change, or change in appetite Cutaneous: no rash, pruritus Head: no headaches or injury Eyes: no changes in vision, eye pain, double vision Ears: no ear pain, ear discharge, ringing or hearing loss Nose: no nose bleeding, stuffiness Mouth & throat: no bleeding gums, no horseness, no dental problems, or swollen glands Neck: no pain, node enlargement/lumps, tyroid enlargement or tenderness Respiratory: no cough, wheezing, sputum, hemoptysis, pleuritic chest pain Cardiovascular: no chest pain, leg edema, cyanosis, MCALLISTER, orthopnea Musculoskeletal: Left BKA. Great Right toe amputation. Superficial wound on right lower extremity., edematous with mild tenderness Gastrointestinal: no nausea, vomiting, hematemesis, diarrhea, constipation, melena, bright red blood in stools, fecal incontinence, jaundice Genitourinary/Reproductive: no frequent urination, no dysuria, hematuria, incontinence Neurogical: no seizures, no headaches, no weakness, no paresthesias, no loss of speech or vision; no memory loss, no vertigo, no tremors, no numbness Psychiatric: stable mood; no excessive anxiety, sadness or moodiness Past History Past Medical History: diabetes, GERD, heart failure, hypertension, other (poor vision) Past Surgical History: Other (left BKA, right great toe amputation) Social history: smoking (activity smoker) Family history: no significant family history Medications and Allergies Allergies Allergy/AdvReac Type Severity Reaction Status Date / Time No Known Allergies Allergy Unverified 05/19/17 19:06 Home Medications Medication Instructions Recorded Confirmed Last Taken Type Insulin Glargine [Lantus VIAL] 10 unit SUB-Q QHS 11/18/18 02/14/19 1 Day Ago History ~02/13/19 Timolol 0.5% [Timoptic] 1 drops OP BID 11/18/18 02/14/19 02/13/19 History raNITIdine HCl [Zantac] 150 mg PO BID 11/18/18 02/14/19 1 Day Ago History ~02/13/19 Carvedilol [Coreg] 6.25 mg PO BID #60 tablet 11/22/18 02/14/19 02/13/19 Rx Furosemide [Lasix TAB] 20 mg PO BID@0600,1800 #60 tablet 11/22/18 02/14/19 1 Day Ago Rx ~02/13/19 AtorvaSTATin 20 mg PO QHS 02/14/19 02/14/19 2 Days Ago History ~02/12/19 Cetirizine HCl 10 mg PO DAILY 02/14/19 02/14/19 1 Day Ago History ~02/13/19 Fluticasone 50 mcg INHALATION DAILY 02/14/19 02/14/19 02/13/19 History Lisinopril 20 mg PO BID 02/14/19 02/14/19 1 Day Ago History ~02/13/19 Active Meds: Active Medications Acetaminophen (Tylenol) 650 mg PO Q4H PRN PRN Reason: Pain MILD(1-3)/Fever >100.5/YI Last Admin: 02/14/19 14:50 Dose: 650 mg Documented by: Atorvastatin Calcium (Lipitor) 20 mg PO QHS [facility] Carvedilol (Coreg) 6.25 mg PO BID [facility] Last Admin: 02/14/19 10:56 Dose: 6.25 mg Documented by: Dextrose (D50w (25gm) Syringe) 50 ml IV PRN PRN PRN Reason: Hypoglycemia Docusate Sodium (Colace) 100 mg PO BID [facility] Last Admin: 02/14/19 10:57 Dose: 100 mg Documented by: Famotidine (Pepcid) 20 mg PO QAM [facility] Last Admin: 02/14/19 10:57 Dose: 20 mg Documented by: Fluticasone Propionate (Flonase) 50 mcg NS DAILY [facility] Heparin Sodium (Porcine) (Heparin) 5,000 unit SUB-Q Q12HR [facility] Hydralazine HCl (Apresoline) 10 mg IV Q4H PRN PRN Reason: Blood Pressure Hydralazine HCl (Apresoline) 50 mg PO Q8HR [facility] Last Admin: 02/14/19 13:57 Dose: 50 mg Documented by: Daptomycin 500 mg/ Sodium (Chloride) 100 mls @ 200 mls/hr IV Q48HR [facility]; Protocol Insulin Glargine (Lantus) 10 units SUB-Q QHS [facility] Insulin Human Regular (Humulin R) 0 units SUB-Q ACHS [facility]; Protocol Last Admin: 02/14/19 07:39 Dose: 2 units Documented by: Lisinopril (Zestril) 20 mg PO BID [facility] Last Admin: 02/14/19 10:57 Dose: 20 mg Documented by: Loratadine (Claritin) 10 mg PO DAILY [facility] Last Admin: 02/14/19 10:56 Dose: 10 mg Documented by: Nicotine (Habitrol) 14 mg TD QDAY [facility] Last Admin: 02/14/19 10:57 Dose: Not Given Documented by: Ondansetron HCl (Zofran) 4 mg IV Q8H PRN PRN Reason: Nausea And Vomiting Oxycodone/Acetaminophen (Percocet 5/325) 1 tab PO Q6H PRN PRN Reason: Pain, Moderate (4-6) Sodium Chloride (Sodium Chloride Flush Syringe 10 Ml) 10 ml IV BID [facility] Last Admin: 02/14/19 10:57 Dose: 10 ml Documented by: Sodium Chloride (Sodium Chloride Flush Syringe 10 Ml) 10 ml IV PRN PRN PRN Reason: LINE FLUSH Review of Systems All systems: negative (see HPI) Exam - Constitutional Vitals: Temp Pulse Resp BP Pulse Ox 98.2 F 80 20 206/115 97 02/14/19 08:29 02/14/19 10:57 02/14/19 14:50 02/14/19 10:56 02/14/19 07:09 General appearance: Present: no acute distress - EENT Eyes: Present: EOM intact ENT: hearing intact - Respiratory Respiratory effort: normal - Extremities Extremities: no ischemia, abnormal (see HPI) - Psychiatric Psychiatric: appropriate mood/affect, cooperative Results - Labs CBC & Chem 7: 02/13/19 22:27 02/13/19 22:27 Labs: Abnormal lab results 02/13/19 02/13/19 02/13/19 Range/Units 22:27 22:27 22:27 Hgb 9.5 L (11.8-15.2) gm/dl Hct 30.2 L (35.5-45.6) % MCV 72 L (84-94) fl MCH 23 L (28-32) pg RDW 19.0 H (13.2-15.2) % Eos % (Auto) 9.1 H (0.0-4.3) % Eos # 0.6 H (0.0-0.4) K/mm3 BUN 35 H (9-20) mg/dL Creatinine 3.3 H (0.8-1.5) mg/dL Glucose 295 H (75-100) mg/dL POC Glucose (70-105) Hemoglobin A1c (4-6) % Calcium 8.3 L (8.4-10.2) mg/dL NT-Pro-B Natriuret Pep 6465 H (0-900) pg/mL 02/14/19 02/14/19 02/14/19 Range/Units 07:39 15:24 Unknown Hgb (11.8-15.2) gm/dl Hct (35.5-45.6) % MCV (84-94) fl MCH (28-32) pg RDW (13.2-15.2) % Eos % (Auto) (0.0-4.3) % Eos # (0.0-0.4) K/mm3 BUN (9-20) mg/dL Creatinine (0.8-1.5) mg/dL Glucose (75-100) mg/dL POC Glucose 179 H 231 H (70-105) Hemoglobin A1c 9.2 H (4-6) % Calcium (8.4-10.2) mg/dL NT-Pro-B Natriuret Pep (0-900) pg/mL - Imaging and Cardiology Venous US: report reviewed, image reviewed Assessment and Plan 58-year-old male who presents with cellulitis of the right lower extremity with underlying arterial disease. Cellulitis will need to be treated with antibiotics per infectious disease. Given the open wound, recommend wound care consult with involvement with wound care center at [facility]. The patient has no evidence of acute ischemia. Patient has fluctuating renal function based on prior admissions. Hopefully he can heal this wound without revascularization. Patient will follow up with [facility] in 2 weeks in the office and if this is not healing or healed, then will need CO2 revascularization at that time.
[2019-02-14] MEDS: FLONASE NS SCH (17:22)
[2019-02-14] MEDS ORDERED: UNASYN/NS 3 GM/100 ML 3 GM/100 ML BAG IV SCH (22:00)
[2019-02-14] MEDS: LANTUS SUB-Q SCH (22:02)
[2019-02-14] MEDS: PERCOCET 5/325 PO PRN (22:34)
[2019-02-15 05:07] LABS: Bacteria,Urine 1+ /HPF (Negative); Bilirubin,Urine NEG (Negative); Blood,Urine NEG (Negative); Color,Urine Yellow (Yellow); Urobilinogen,Urine < 2.0 mg/dL (<2.0)
[2019-02-15 05:10] LABS: Protein,Urine >500 mg/dL (Negative)
[2019-02-15 05:16] LABS: Creatinine,Urine 137.3 mg/dL (0.1-20.0)
[2019-02-15] MEDS: PERCOCET 5/325 PO PRN ×3 (05:42→22:55)
[2019-02-15] MEDS: APRESOLINE PO SCH ×3 (05:49→22:46)
[2019-02-15 06:46] LABS: Calcium 8.2 mg/dL (8.4-10.2)
[2019-02-15 06:47] LABS: Basophils # (Auto) 0.1 K/mm3 (0.0-0.1); Basophils % (Auto) 0.9 % (0.0-1.8); Eosinophils # (Auto) 0.6 K/mm3 (0.0-0.4); Eosinophils % (Auto) 9.4 % (0.0-4.3); Hematocrit 33.2 % (35.5-45.6); Hemoglobin 10.5 gm/dl (11.8-15.2); Lymphocytes # (Auto) 1.6 K/mm3 (1.2-5.4); Lymphocytes % (Auto) 28.1 % (13.4-35.0); Mean Corpuscular HGB Conc 32 % (32-34); Mean Corpuscular Volume 72 fl (84-94); Monocytes # (Auto) 0.5 K/mm3 (0.0-0.8); Monocytes % (Auto) 8.8 % (0.0-7.3); Platelet Count 282 K/mm3 (140-440); Red Cell Distribution Width 19.3 % (13.2-15.2)
[2019-02-15] MEDS: HumuLIN R SUB-Q SCH ×4 (08:00→23:00)
--- NOTE | 2019-02-15 08:13 | Progress Note ---
Assessment and Plan Cultures not drawn 58-year-old male with a past medical history of CHF, Type 2 DM, GERD, hypertension, Left BKA, right great toe amputation who presents to ED on 02/13/19 with complaints of right lower extremity swelling and pain for the past 1 week and drainage for the past 2 days. Admitted with : 1. Mild Cellulitis Right Lower Extremity with Ischemia. Superficial wound. No odor or drainage. Duplex scan shows monophasic flow in the posterior tibial and anterior tibial arteries the right lower extremity that is indicative of disease in the runoff vessels which may be hemodynamically significant.. No DVT. History of Left BKA. Right great toe amputation.. Daptomycin times 1 dose, then will treat with Keflex and doxycycline for 5 days. 2. Acute on Chronic renal failure; antibiotics renally dosed 3. Type 2 Diabetes: uncontrolled. Admission HgA1C 9.2. Recommend tight glycemic control 4. Chronic Anemia 5. Hx of PVD Recommendations: - discontinue Daptomycin - Switch to Keflex 250 PO BID and Doxycycline 100mg PO BID for 5 days ( end date 02-19-19) -Wound care outpatient -follow-up with vascular outpatient ID is signing off, please call for questions. [facility] M: [id number] O:[phone] Subjective Date of service: 02/15/19 Interval history: Patient seen and examined. Reports no generalized pain or weakness. No fevers. Objective - Exam Narrative Exam: Constitutional: Alert, cooperative. No acute distress Head, Ears, Nose: Normocephalic, atraumatic. External ears, nose normal Eyes: Conjunctivae/corneas clear. No icterus. No ptosis. Neck: Supple, no meningeal signs Oral: dentition poor.. No thrush. oral mucosa moist Cardiovascular: S1, S2 normal. Respiratory: Good air entry, clear to auscultation bilaterally GI: Soft, non-tender; bowel sounds normal. No peritoneal signs Musculoskeletal: Left BKA. Great Right toe amputation. Superficial wound on r ight lower extremity., edematous with mild tenderness Skin: No rash or abscess. Dry skin Hem/Lymphatic: No palpable cervical or supraclavicular nodes. No lymphangitis Psych: Mood ok. Affect normal Neurological: Awake, alert, oriented. - Constitutional Vitals: Vital Signs Temp Pulse Resp BP Pulse Ox 98.3 F 80 20 151/77 97 02/15/19 04:44 02/15/19 05:49 02/15/19 04:44 02/15/19 05:49 02/15/19 04:44 Temperature -Last 24 Hours Temperature 98.3 F Temperature 98.4 F Temperature 99.2 F Temperature 98.4 F Temperature 98.2 F Temperature 98.2 F - Labs CBC & Chem 7: 02/15/19 06:23 02/15/19 06:23 Labs: Abnormal lab results 02/14/19 02/14/19 02/14/19 Range/Units 15:24 21:52 21:58 Hgb (11.8-15.2) gm/dl Hct (35.5-45.6) % MCV (84-94) fl MCH (28-32) pg RDW (13.2-15.2) % [place] % (Auto) (0.0-7.3) % Eos % (Auto) (0.0-4.3) % Eos # (0.0-0.4) K/mm3 Chloride (98-107) mmol/L BUN (9-20) mg/dL Creatinine (0.8-1.5) mg/dL Glucose (75-100) mg/dL POC Glucose 231 H 138 H (70-105) Calcium (8.4-10.2) mg/dL Urine Creatinine 137.3 H (0.1-20.0) mg/dL 02/15/19 02/15/19 02/15/19 Range/Units 06:23 06:23 08:05 Hgb 10.5 L (11.8-15.2) gm/dl Hct 33.2 L (35.5-45.6) % MCV 72 L (84-94) fl MCH 23 L (28-32) pg RDW 19.3 H (13.2-15.2) % [place] % (Auto) 8.8 H (0.0-7.3) % Eos % (Auto) 9.4 H (0.0-4.3) % Eos # 0.6 H (0.0-0.4) K/mm3 Chloride 108.3 H (98-107) mmol/L BUN 32 H (9-20) mg/dL Creatinine 3.1 H (0.8-1.5) mg/dL Glucose 133 H (75-100) mg/dL POC Glucose 116 H (70-105) Calcium 8.2 L (8.4-10.2) mg/dL Urine Creatinine (0.1-20.0) mg/dL
[2019-02-15] MEDS: PEPCID PO SCH (09:43)
[2019-02-15] MEDS: CLARITIN PO SCH (09:43)
[2019-02-15] MEDS: COLACE PO SCH ×2 (09:43→22:46)
[2019-02-15] MEDS: COREG PO SCH ×2 (09:44→22:46)
[2019-02-15] MEDS: HEPARIN SUB-Q SCH ×2 (09:44→22:47)
[2019-02-15] MEDS: SODIUM CHLORIDE FLUSH SYRINGE 10 ML IV SCH ×2 (09:44→22:52)
[2019-02-15] MEDS: HABITROL TD SCH (09:45)
[2019-02-15] MEDS: FLONASE NS SCH (09:54)
[2019-02-15] MEDS: ZESTRIL PO SCH (10:06)
--- NOTE | 2019-02-15 10:12 | Progress Note ---
Assessment and Plan The patient does have tibial disease on his right lower extremity. Additionally, he does have swelling to the right leg as well. We will order a venous ultrasound with reflux on the patient as he likely has mixed disease. Subjective Date of service: 02/15/19 Principal diagnosis: peripheral vascular disease and right lower extremity swelling Interval history: A patient with a history of peripheral vascular disease predominantly to the tibial vessels on his right. He has previously undergone a left BKA. The patient was previously referred to a vascular surgeon in the distant past however, he has no idea who this was. Objective - Constitutional Vitals: Vital Signs - 12hr 02/14/19 02/15/19 02/15/19 23:13 04:44 05:49 Temperature 98.4 F 98.3 F Pulse Rate 89 80 80 Respiratory 18 20 Rate Blood Pressure 134/71 151/77 151/77 O2 Sat by Pulse 97 97 Oximetry 02/15/19 10:06 Temperature Pulse Rate 84 Respiratory Rate Blood Pressure 129/68 O2 Sat by Pulse Oximetry General appearance: Present: no acute distress - EENT Eyes: EOM intact ENT: hearing intact - Neck Neck: supple, normal ROM - Respiratory Respiratory effort: normal Extremities: abnormal Extremity abnormal: edema - Gastrointestinal General gastrointestinal: Present: deferred Rectal Exam: deferred - Genitourinary Male genitourinary: deferred - Psychiatric Psychiatric: cooperative - Labs CBC & Chem 7: 02/15/19 06:23 02/15/19 06:23 Labs: Abnormal lab results 02/14/19 02/14/19 02/14/19 Range/Units 15:24 21:52 21:58 Hgb (11.8-15.2) gm/dl Hct (35.5-45.6) % MCV (84-94) fl MCH (28-32) pg RDW (13.2-15.2) % [place] % (Auto) (0.0-7.3) % Eos % (Auto) (0.0-4.3) % Eos # (0.0-0.4) K/mm3 Chloride (98-107) mmol/L BUN (9-20) mg/dL Creatinine (0.8-1.5) mg/dL Glucose (75-100) mg/dL POC Glucose 231 H 138 H (70-105) Calcium (8.4-10.2) mg/dL Urine Creatinine 137.3 H (0.1-20.0) mg/dL 02/15/19 02/15/19 02/15/19 Range/Units 06:23 06:23 08:05 Hgb 10.5 L (11.8-15.2) gm/dl Hct 33.2 L (35.5-45.6) % MCV 72 L (84-94) fl MCH 23 L (28-32) pg RDW 19.3 H (13.2-15.2) % Falls % (Auto) 8.8 H (0.0-7.3) % Eos % (Auto) 9.4 H (0.0-4.3) % Eos # 0.6 H (0.0-0.4) K/mm3 Chloride 108.3 H (98-107) mmol/L BUN 32 H (9-20) mg/dL Creatinine 3.1 H (0.8-1.5) mg/dL Glucose 133 H (75-100) mg/dL POC Glucose 116 H (70-105) Calcium 8.2 L (8.4-10.2) mg/dL Urine Creatinine (0.1-20.0) mg/dL Medications & Allergies - Medications Allergies/Adverse Reactions: Allergies No Known Allergies Allergy (Unverified 05/19/17 19:06) Home Medications: Home Medications Medication Instructions Recorded Confirmed Last Taken Type Insulin Glargine [Lantus VIAL] 10 unit SUB-Q QHS 11/18/18 02/14/19 1 Day Ago History ~02/13/19 Timolol 0.5% [Timoptic] 1 drops OP BID 11/18/18 02/14/19 02/13/19 History raNITIdine HCl [Zantac] 150 mg PO BID 11/18/18 02/14/19 1 Day Ago History ~02/13/19 Carvedilol [Coreg] 6.25 mg PO BID #60 tablet 11/22/18 02/14/19 02/13/19 Rx Furosemide [Lasix TAB] 20 mg PO BID@0600,1800 #60 tablet 11/22/18 02/14/19 1 Day Ago Rx ~02/13/19 AtorvaSTATin 20 mg PO QHS 02/14/19 02/14/19 2 Days Ago History ~02/12/19 Cetirizine HCl 10 mg PO DAILY 02/14/19 02/14/19 1 Day Ago History ~02/13/19 Fluticasone 50 mcg INHALATION DAILY 02/14/19 02/14/19 02/13/19 History Lisinopril 20 mg PO BID 02/14/19 02/14/19 1 Day Ago History ~02/13/19 Active Medications: Generic Name Dose Route Start Last Admin Trade Name Freq PRN Reason Stop Dose Admin Acetaminophen 650 mg 02/14/19 05:16 02/14/19 14:50 Tylenol PO 650 mg Q4H PRN Administration Pain MILD(1-3)/Fever >100.5/YI Atorvastatin Calcium 20 mg 02/14/19 22:00 02/14/19 21:59 Lipitor PO 20 mg QHS ANJELICA Administration Carvedilol 6.25 mg 02/14/19 10:00 02/14/19 21:58 Coreg PO 6.25 mg BID ANJELICA Administration Dextrose 50 ml 02/14/19 05:27 D50w (25gm) Syringe IV PRN PRN Hypoglycemia Docusate Sodium 100 mg 02/14/19 10:00 02/15/19 09:43 Colace PO 100 mg BID ANJELICA Administration Famotidine 20 mg 02/14/19 10:00 02/15/19 09:43 Pepcid PO 20 mg QAM ANJELICA Administration Fluticasone Propionate 50 mcg 02/14/19 10:00 02/15/19 09:54 Flonase NS 50 mcg DAILY ANJELICA Administration Heparin Sodium (Porcine) 5,000 unit 02/14/19 10:00 02/15/19 09:44 Heparin SUB-Q 5,000 unit Q12HR ANJELICA Administration Hydralazine HCl 10 mg 02/14/19 05:59 02/14/19 17:23 Apresoline IV 10 mg Q4H PRN Administration Blood Pressure Hydralazine HCl 50 mg 02/14/19 10:00 02/15/19 05:49 Apresoline PO 50 mg Q8HR ANJELICA Administration Daptomycin 500 mg/ Sodium 100 mls @ 200 mls/hr 02/14/19 16:00 02/14/19 17:28 Chloride IV 200 mls/hr Q48HR ANJELICA Administration Protocol Insulin Glargine 10 units 02/14/19 22:00 08/15/19 22:02 Lantus SUB-Q 10 units QHS ANJELICA Administration Insulin Human Regular 0 units 02/14/19 07:30 02/15/19 08:00 Humulin R SUB-Q Not Given [facility] Protocol Lisinopril 20 mg 02/14/19 10:00 02/15/19 10:06 Zestril PO 20 mg BID ANJELICA Administration Loratadine 10 mg 02/14/19 10:00 02/15/19 09:43 Claritin PO 10 mg DAILY [facility] Administration Nicotine 14 mg 02/14/19 10:00 02/15/19 09:45 Habitrol TD Not Given QDAY [facility] Ondansetron HCl 4 mg 02/14/19 05:16 02/14/19 23:00 Zofran IV 4 mg Q8H PRN Administration Nausea And Vomiting Oxycodone/Acetaminophen 1 tab 02/14/19 05:16 02/15/19 05:42 Percocet 5/325 PO 1 tab Q6H PRN Administration Pain, Moderate (4-6) Sodium Chloride 10 ml 02/14/19 10:00 02/14/19 22:04 Sodium Chloride Flush Syringe 10 Ml IV 10 ml BID ANJELICA Administration Sodium Chloride 10 ml 02/14/19 05:16 Sodium Chloride Flush Syringe 10 Ml IV PRN PRN LINE FLUSH
--- NOTE | 2019-02-15 11:44 | Vascular Lab Report ---
DUPLEX DOPPLER LOWER EXTREMITY VEINS, LEFT INDICATION: swelling - venous reflux RLE, pt with left BKA. TECHNIQUE: Duplex doppler imaging was performed through the veins of the left lower extremity using venous compr ession and other maneuvers. COMPARISON: None available. FINDINGS: Common Femoral vein: Negative. Superficial Femoral vein: Negative. Popliteal vein: Negative. Calf veins: Negative. Additional findings: Evaluation for reflux was performed No evidence of reflux in the deep system. No evidence of superficial venous reflux in the right great er saphenous vein or saphenous femoral junction. However attention is directed to a small canvas baster jumpbasting with reflux 8 cm proximal to the medial malleolus. IMPRESSION: 1. No sonographic evidence for DVT in the left lower extremity. 2. Focal reflux medial calf superficial venous system above the medial malleolus Signer Name: Chencho Gutierrez MD Signed: 02/15/2019 11:40 AM Workstation Name: [id number]
--- NOTE | 2019-02-15 11:49 | Vascular Lab Report ---
LOWER EXTREMITY SEGMENTAL ARTERIAL DOPPLER PRESSURE AND PVR STUDY HISTORY: Lower extremity pain. Nonhealing wound. COMPARISON: none TECHNIQUE: Lower extremity segmental arterial doppler pressure and PVR analysis were obtained at [facility] lower extremity levels bilaterally. FINDINGS: Normal arterial waveforms are seen within both lower extremities. RIGHT: Brachial artery peak-systolic pressure: 156 mmHg Posterior tibialis: 143 mmHg Dorsalis pedis: 159 mmHg CATHY: 1.02 LEFT: Brachial artery peak-systolic pressure: 142 mmHg Posterior tibialis: Not obtained due to below the knee amputation Dorsalis pedis: Not obtained due to [id number] amputation CATHY: Not obtained TBI values were obtained at the second toe in the right foot secondary to great toe amputation. Peak systolic pressure in the second toe measures 156 mmHg. TBI: 1.0. IMPRESSION: Right CATHY measures 1.02. Right TBI measures 1.0. Signer Name: John Coleman Jr, MD Signed: 02/15/2019 11:45 AM Workstation Name: [id number]
[2019-02-15] MEDS: VIBRAMYCIN PO SCH ×2 (13:02→22:45)
[2019-02-15] MEDS: KEFLEX PO SCH (14:19)
--- NOTE | 2019-02-15 20:59 | Progress Note ---
Assessment and Plan Assessment and plan: 58-year-old man with history of hypertension diabetes and GERD, systolic heart failure with EF of 30% who presented to the hospital complaining of right leg pain and drainage for 2 days. Patient was supposed to see a vascular surgeon but has yet to do so, history of PAD with left lower extremity BKA, currently every day smoker Right leg infection; vascular consult, antibiotics, wound care, ID consult- continue abx,adjustments made by them. vascular arterial ultrasound of lower extremities Acute on chronic kidney disease, vasomotor nephropathy; avoid nephrotoxins, hold lasix for now, nephrology consult. patient adamant about not having dialysis HTN: Stable Chronic systolic CHF; cardiology consult, keep euvolemic Tobacco abuse, cessation counseling done 11 mins, preventative health counseling 17 mins left lower ext BKA Right lower ext cellulitis: Continue abx, ID following. Type 2 diabetes with hyperglycemia, A1c is 8.3, optimizing insulin History Interval history: Patient seen and examined today. no new complaints. but very adamant that he will no do any dialysis. Reports some mild improvement in lower ext swelling Hospitalist Physical - Physical exam Narrative exam: General appearance: Present: No acute distress, chronically ill-appearing, alert and oriented 3, -[place] adult female - EENT Eyes: Present: PERRL, EOM intact ENT: hearing intact, poor dentition - Neck Neck: Present: supple, normal ROM - Respiratory Respiratory effort: Non-labored Respiratory: CTA Bilaterally - Cardiovascular Heart rate: 91 (bpm) Rhythm: SR Heart Sounds: Present: S1 & S2. Absent: rub, click - Extremities Extremities: no ischemia, pulses intact, abnormal (left BKA, right lower extremity cellulitis, right great toe amputation - Peripheral Assessment Peripheral Pulses: ,faint pulses on Doppler - Abdominal General gastrointestinal: soft, non-tender, normal bowel sounds - Integumentary Integumentary: Present: warm, dry - Musculoskeletal Musculoskeletal: able to move all strategies - Psychiatric Psychiatric: cooperative - Constitutional Vitals: Temp Pulse Resp BP Pulse Ox 97.5 F L 90 20 174/99 98 02/15/19 16:59 02/15/19 16:59 02/15/19 16:59 02/15/19 16:59 02/15/19 16:59 General appearance: Present: no acute distress Results - Labs CBC & Chem 7: 02/15/19 06:23 02/15/19 06:23 Labs: Laboratory Last Values WBC 5.9 K/mm3 (4.5-11.0) 02/15/19 06:23 RBC 4.60 M/mm3 (3.65-5.03) 02/15/19 06:23 Hgb 10.5 gm/dl (11.8-15.2) L 02/15/19 06:23 Hct 33.2 % (35.5-45.6) L 02/15/19 06:23 MCV 72 fl (84-94) L 02/15/19 06:23 MCH 23 pg (28-32) L 02/15/19 06:23 MCHC 32 % (32-34) 02/15/19 06:23 RDW 19.3 % (13.2-15.2) H 02/15/19 06:23 Plt Count 282 K/mm3 (140-440) 02/15/19 06:23 Lymph % (Auto) 28.1 % (13.4-35.0) 02/15/19 06:23 Ritchie % (Auto) 8.8 % (0.0-7.3) H 02/15/19 06:23 Eos % (Auto) 9.4 % (0.0-4.3) H 02/15/19 06:23 Baso % (Auto) 0.9 % (0.0-1.8) 02/15/19 06:23 Lymph # 1.6 K/mm3 (1.2-5.4) 02/15/19 06:23 Ritchie # 0.5 K/mm3 (0.0-0.8) 02/15/19 06:23 Eos # 0.6 K/mm3 (0.0-0.4) H 02/15/19 06:23 Baso # 0.1 K/mm3 (0.0-0.1) 02/15/19 06:23 Seg Neutrophils % 52.8 % (40.0-70.0) 02/15/19 06:23 Seg Neutrophils # 3.1 K/mm3 (1.8-7.7) 02/15/19 06:23 Sodium 140 mmol/L (137-145) 02/15/19 06:23 Potassium 4.7 mmol/L (3.6-5.0) 02/15/19 06:23 Chloride 108.3 mmol/L (98-107) H 02/15/19 06:23 Carbon Dioxide 26 mmol/L (22-30) 02/15/19 06:23 10 mmol/L 02/15/19 06:23 BUN 32 mg/dL (9-20) H 02/15/19 06:23 3.1 mg/dL (0.8-1.5) H 02/15/19 06:23 Estimated GFR 25 ml/min 02/15/19 06:23 10 % 02/15/19 06:23 Glucose 133 mg/dL (75-100) H 02/15/19 06:23 POC Glucose 133 (70-105) H 02/15/19 17:06 9.2 % (4-6) H 02/14/19 Unknown Calcium 8.2 mg/dL (8.4-10.2) L 02/15/19 06:23 NT-Pro-B Natriuret Pep 6465 pg/mL (0-900) H 02/13/19 22:27 Yellow (Yellow) 02/14/19 21:58 Clear (Clear) 02/14/19 21:58 6.0 (5.0-7.0) 02/14/19 21:58 Ur Specific [place] 1.015 (1.003-1.030) 02/14/19 21:58 >500 mg/dL (Negative) 02/14/19 21:58 150 mg/dL (Negative) 02/14/19 21:58 Neg mg/dL (Negative) 02/14/19 21:58 Neg (Negative) 02/14/19 21:58 Neg (Negative) 02/14/19 21:58 Neg (Negative) 02/14/19 21:58 < 2.0 mg/dL (<2.0) 02/14/19 21:58 Ur Leukocyte Esterase Neg (Negative) 02/14/19 21:58 1.0 /HPF (0.0-6.0) 02/14/19 21:58 8.0 /HPF (0.0-6.0) 02/14/19 21:58 1+ /HPF (Negative) 02/14/19 21:58 137.3 mg/dL (0.1-20.0) H 02/14/19 21:58 71 mmol/L 02/14/19 21:58 Active Medications - Current Medications Current Medications: Generic Name Dose Route Start Last Admin Trade Name Freq PRN Reason Stop Dose Admin Acetaminophen 650 mg 02/14/19 05:16 02/14/19 14:50 Tylenol PO 650 mg Q4H PRN Administration Pain MILD(1-3)/Fever >100.5/YI Atorvastatin Calcium 20 mg 02/14/19 22:00 02/14/19 21:59 Lipitor PO 20 mg QHS ANJELICA Administration Carvedilol 6.25 mg 02/14/19 10:00 02/15/19 09:44 Coreg PO 6.25 mg BID ANJELICA Administration Cephalexin 250 mg 02/15/19 13:00 02/15/19 14:19 Keflex PO 02/19/19 23:59 250 mg Q12H ANJELICA Administration Dextrose 50 ml 02/14/19 05:27 D50w (25gm) Syringe IV PRN PRN Hypoglycemia Docusate Sodium 100 mg 02/14/19 10:00 02/15/19 09:43 Colace PO 100 mg BID ANJELICA Administration Doxycycline Hyclate 100 mg 02/15/19 13:00 02/15/19 13:02 Vibramycin PO 02/19/19 23:59 100 mg BID ANJELICA Administration Famotidine 20 mg 02/14/19 10:00 02/15/19 09:43 Pepcid PO 20 mg QAM ANJELICA Administration Fluticasone Propionate 50 mcg 02/14/19 10:00 02/15/19 09:54 Flonase NS 50 mcg DAILY ANJELICA Administration Heparin Sodium (Porcine) 5,000 unit 02/14/19 10:00 02/15/19 09:44 Heparin SUB-Q 5,000 unit Q12HR ANJELICA Administration Hydralazine HCl 10 mg 02/14/19 05:59 02/14/19 17:23 Apresoline IV 10 mg Q4H PRN Administration Blood Pressure Hydralazine HCl 50 mg 02/14/19 10:00 02/15/19 13:02 Apresoline PO 50 mg Q8HR ANJELICA Administration Insulin Glargine 10 units 02/14/19 22:00 02/14/19 22:02 Lantus SUB-Q 10 units QHS ANJELICA Administration Insulin Human Regular 0 units 02/14/19 07:30 02/15/19 17:12 Humulin R SUB-Q Not Given ACHS [facility] Protocol Lisinopril 20 mg 02/14/19 10:00 02/15/19 10:06 Zestril PO 20 mg BID ANJELICA Administration Loratadine 10 mg 02/14/19 10:00 02/15/19 09:43 Claritin PO 10 mg DAILY ANJELICA Administration Nicotine 14 mg 02/14/19 10:00 02/15/19 09:45 Habitrol TD Not Given QDAY [facility] Ondansetron HCl 4 mg 02/14/19 05:16 02/14/19 23:00 Zofran IV 4 mg Q8H PRN Administration Nausea And Vomiting Oxycodone/Acetaminophen 1 tab 02/14/19 05:16 02/15/19 13:07 Percocet 5/325 PO 1 tab Q6H PRN Administration Pain, Moderate (4-6) Sodium Chloride 10 ml 02/14/19 10:00 02/15/19 09:44 Sodium Chloride Flush Syringe 10 Ml IV 10 ml BID ANJELICA Administration Sodium Chloride 10 ml 02/14/19 05:16 Sodium Chloride Flush Syringe 10 Ml IV PRN PRN LINE FLUSH Nutrition/Malnutrition Assess - Dietary Evaluation Nutrition/Malnutrition Findings: Nutrition Notes Start: 02/14/19 15:12 Freq: Status: Active Protocol: Document 02/14/19 15:12 RM (Rec: 02/14/19 15:17 RM [id number]) Nutrition Notes Need for Assessment generated from: MD Order Initial or Follow up Assessment Current Diagnosis Acute Kidney Injury,CKD(stage I-IV),Diabetes,Hypertension, Heart Failure Other Pertinent Diagnosis GERD, L BKA, PVD Current Diet Renal Labs/Tests A1c 9.2 Pertinent Medications Reviewed Height 5 ft 10 in Weight 92.2 kg [place] Body Weight (kg) 75.45 BMI 29.1 Subjective/Other Information Consulted for DM diet education. Pt stated that his appetite is good and that he eats all of his meals. Declined DM diet education d/t being familiar with diet. Burn Absent Trauma Absent #1 Nutrition Diagnosis Increased nutrient needs ( specify in comment below) Comments: glutamine, arginine Etiology wound healing As Evidenced by Signs and Symptoms L BKA Is patient on ventilator? No Is Patient Ambulatory and/or Out of Bed No REE-([facility]-confined to bed) [phone] Calculation Used for Recommendations Jay Garber Additional Notes Protein Needs: 74-92g (0.8-1/ kg) Fluid Needs: 1 ml/kcal Nutrition Intervention Change Diet Order: Continue current Add Supplement/Snack (indicate name/kcal Quentin BID /protein ) Provides kCal: 190 Provides Protein (gm) 5 Goal #1 Quentin intake Anticipated Discharge Needs: Renal diet Follow-Up By: 02/18/19 Additional Comments Follow for PO intakes, Quentin intakes
--- NOTE | 2019-02-15 21:34 | Progress Note ---
Assessment and Plan 1. Acute kidney injury: Likely vasomotor BATOOL superimposed on CKD in the setting of Cellulitis. Slight improvement in the creatinine level. Monitor renal function. Renal prognosis is guarded. Avoid nephrotoxic agents. Meds dosage based on GFR. 2. FEN: Monitor lytes. 3. R LE cellulitis / superficial wound: Followed by ID. 4. HTN: Monitor BP. 5. Systolic CHF. 6. Microcytic Anemia: POA. 7. DM-2. Subjective Date of service: 02/15/19 Principal diagnosis: peripheral vascular disease and right lower extremity swelling Interval history: Patient was seen and examined at the bedside. Doing ok. Objective - Vital Signs Vital signs: Vital Signs - 12hr 02/15/19 02/15/19 02/15/19 09:44 10:06 13:02 Temperature Pulse Rate 84 84 Respiratory Rate Blood Pressure 129/68 129/68 117/69 O2 Sat by Pulse Oximetry 02/15/19 16:59 Temperature 97.5 F L Pulse Rate 90 Respiratory 20 Rate Blood Pressure 174/99 O2 Sat by Pulse 98 Oximetry - General Appearance General appearance: well-developed, well-nourished, appears stated age, other (no distress) EENT: ATNC, PERRL, mucous membranes moist, hearing intact, vision intact Neck: supple Respiratory: Present: Clear to Ascultation Cardiology: regular, S1S2, no murmurs Gastrointestinal: normoactive bowel sounds, no tenderness, no distended Integumentary: other (R leg superficial wound noted) Neurologic: no focal deficit, no asterixis Musculoskeletal: other (R LE edema noted, R grest toe amputated, L BKA) - Lab 02/15/19 06:23 02/15/19 06:23 Most recent lab results Calcium 8.2 mg/dL (8.4-10.2) L 02/15/19 06:23 137.3 mg/dL (0.1-20.0) H 02/14/19 21:58 71 mmol/L 02/14/19 21:58 Medications & Allergies - Medications Allergies/Adverse Reactions: Allergies No Known Allergies Allergy (Unverified 05/19/17 19:06) Home Medications: Home Medications Medication Instructions Recorded Confirmed Last Taken Type Insulin Glargine [Lantus VIAL] 10 unit SUB-Q QHS 11/18/18 02/14/19 1 Day Ago History ~02/13/19 Timolol 0.5% [Timoptic] 1 drops OP BID 11/18/18 02/14/19 02/13/19 History raNITIdine HCl [Zantac] 150 mg PO BID 11/18/18 02/14/19 1 Day Ago History ~02/13/19 Carvedilol [Coreg] 6.25 mg PO BID #60 tablet 11/22/18 02/14/19 02/13/19 Rx Furosemide [Lasix TAB] 20 mg PO BID@0600,1800 #60 tablet 11/22/18 02/14/19 1 Day Ago Rx ~02/13/19 AtorvaSTATin 20 mg PO QHS 02/14/19 02/14/19 2 Days Ago History ~02/12/19 Cetirizine HCl 10 mg PO DAILY 02/14/19 02/14/19 1 Day Ago History ~02/13/19 Fluticasone 50 mcg INHALATION DAILY 02/14/19 02/14/19 02/13/19 History Lisinopril 20 mg PO BID 02/14/19 02/14/19 1 Day Ago History ~02/13/19 Active Medications: Generic Name Dose Route Start Last Admin Trade Name Freq PRN Reason Stop Dose Admin Acetaminophen 650 mg 02/14/19 05:16 02/14/19 14:50 Tylenol PO 650 mg Q4H PRN Administration Pain MILD(1-3)/Fever >100.5/YI Atorvastatin Calcium 20 mg 02/14/19 22:00 02/14/19 21:59 Lipitor PO 20 mg QHS ANJELICA Administration Carvedilol 6.25 mg 02/14/19 10:00 02/15/19 09:44 Coreg PO 6.25 mg BID ANJELICA Administration Cephalexin 250 mg 02/15/19 13:00 02/15/19 14:19 Keflex PO 02/19/19 23:59 250 mg Q12H ANJELICA Administration Dextrose 50 ml 02/14/19 05:27 D50w (25gm) Syringe IV PRN PRN Hypoglycemia Docusate Sodium 100 mg 02/14/19 10:00 02/15/19 09:43 Colace PO 100 mg BID ANJELICA Administration Doxycycline Hyclate 100 mg 02/15/19 13:00 02/15/19 13:02 Vibramycin PO 02/19/19 23:59 100 mg BID ANJELICA Administration Famotidine 20 mg 02/14/19 10:00 02/15/19 09:43 Pepcid PO 20 mg QAM ANJELICA Administration Fluticasone Propionate 50 mcg 02/14/19 10:00 02/15/19 09:54 Flonase NS 50 mcg DAILY ANJELICA Administration Heparin Sodium (Porcine) 5,000 unit 02/14/19 10:00 02/15/19 09:44 Heparin SUB-Q 5,000 unit Q12HR ANJELICA Administration Hydralazine HCl 10 mg 02/14/19 05:59 02/14/19 17:23 Apresoline IV 10 mg Q4H PRN Administration Blood Pressure Hydralazine HCl 50 mg 02/14/19 10:00 02/15/19 13:02 Apresoline PO 50 mg Q8HR ANJELICA Administration Insulin Glargine 10 units 02/14/19 22:00 02/14/19 22:02 Lantus SUB-Q 10 units QHS ANJELICA Administration Insulin Human Regular 0 units 02/14/19 07:30 02/15/19 17:12 Humulin R SUB-Q Not Given ACHS [facility] Protocol Loratadine 10 mg 02/14/19 10:00 02/15/19 09:43 Claritin PO 10 mg DAILY [facility] Administration Nicotine 14 mg 02/14/19 10:00 02/15/19 09:45 Habitrol TD Not Given QDAY [facility] Ondansetron HCl 4 mg 02/14/19 05:16 02/14/19 23:00 Zofran IV 4 mg Q8H PRN Administration Nausea And Vomiting Oxycodone/Acetaminophen 1 tab 02/14/19 05:16 02/15/19 13:07 Percocet 5/325 PO 1 tab Q6H PRN Administration Pain, Moderate (4-6) Sodium Chloride 10 ml 02/14/19 10:00 02/15/19 09:44 Sodium Chloride Flush Syringe 10 Ml IV 10 ml BID ANJELICA Administration Sodium Chloride 10 ml 02/14/19 05:16 Sodium Chloride Flush Syringe 10 Ml IV PRN PRN LINE FLUSH
[2019-02-15] MEDS: LANTUS SUB-Q SCH (22:59)
[2019-02-16] MEDS: KEFLEX PO SCH ×2 (00:36→13:29)
[2019-02-16] MEDS: APRESOLINE PO SCH ×2 (05:36→13:25)
[2019-02-16] MEDS: TYLENOL PO PRN (05:41)
[2019-02-16 06:53] LABS: Hematocrit 31.1 % (35.5-45.6); Hemoglobin 9.8 gm/dl (11.8-15.2); Mean Corpuscular HGB Conc 32 % (32-34); Mean Corpuscular Volume 73 fl (84-94); Platelet Count 325 K/mm3 (140-440); Red Blood Count 4.29 M/mm3 (3.65-5.03); Red Cell Distribution Width 19.1 % (13.2-15.2)
[2019-02-16 07:06] LABS: Calcium 8.3 mg/dL (8.4-10.2)
[2019-02-16] MEDS: CLARITIN PO SCH (09:23)
[2019-02-16] MEDS: FLONASE NS SCH (09:23)
[2019-02-16] MEDS: COREG PO SCH (09:23)
[2019-02-16] MEDS: PEPCID PO SCH (09:23)
[2019-02-16] MEDS: COLACE PO SCH (09:23)
[2019-02-16] MEDS: HumuLIN R SUB-Q SCH ×3 (09:24→18:05)
[2019-02-16] MEDS: VIBRAMYCIN PO SCH (09:24)
[2019-02-16] MEDS: HEPARIN SUB-Q SCH (09:24)
[2019-02-16] MEDS: SODIUM CHLORIDE FLUSH SYRINGE 10 ML IV SCH (09:25)
--- NOTE | 2019-02-16 09:26 | Progress Note ---
Assessment and Plan 1. Acute kidney injury: Likely vasomotor BATOOL superimposed on CKD in the setting of Cellulitis. Renal function is improving. Monitor renal function. Renal prognosis is guarded. Avoid nephrotoxic agents. Meds dosage based on GFR. 2. FEN: Monitor lytes. 3. R LE cellulitis / superficial wound: Followed by ID. 4. HTN: Coreg increased. Monitor BP. 5. Systolic CHF. 6. Microcytic Anemia: POA. 7. DM-2. Subjective Date of service: 02/16/19 Principal diagnosis: peripheral vascular disease and right lower extremity swelling Interval history: Patient was seen and examined at the bedside. Doing ok. Objective - Vital Signs Vital signs: Vital Signs - 12hr 02/15/19 02/15/19 02/15/19 22:30 22:46 22:55 Temperature 99.4 F Pulse Rate 91 H 90 Respiratory 18 Rate Respiratory 18 Rate [ Generalized] Blood Pressure 165/79 165/79 O2 Sat by Pulse 96 Oximetry 02/15/19 02/16/19 02/16/19 23:55 01:00 05:05 Temperature 98.8 F Pulse Rate 86 Respiratory 18 18 20 Rate Respiratory Rate [ Generalized] Blood Pressure 171/94 O2 Sat by Pulse 96 99 Oximetry 02/16/19 02/16/19 02/16/19 05:36 05:41 06:41 Temperature Pulse Rate 86 Respiratory 18 18 Rate Respiratory Rate [ Generalized] Blood Pressure 171/94 O2 Sat by Pulse Oximetry - General Appearance General appearance: well-developed, well-nourished, appears stated age, other (no distress) EENT: ATNC, PERRL, hearing intact, vision intact Neck: supple Respiratory: Present: Clear to Ascultation Cardiology: regular, S1S2, no murmurs Gastrointestinal: normoactive bowel sounds, no tenderness, no distended Integumentary: other (superficial ulcer over R leg) Neurologic: no focal deficit, no asterixis Musculoskeletal: other (L BKA, R great toe amputated, R LE edema noted) - Lab 02/16/19 05:19 02/16/19 05:19 Most recent lab results Calcium 8.3 mg/dL (8.4-10.2) L 02/16/19 05:19 137.3 mg/dL (0.1-20.0) H 02/14/19 21:58 71 mmol/L 02/14/19 21:58 Medications & Allergies - Medications Allergies/Adverse Reactions: Allergies No Known Allergies Allergy (Unverified 05/19/17 19:06) Home Medications: Home Medications Medication Instructions Recorded Confirmed Last Taken Type Insulin Glargine [Lantus VIAL] 10 unit SUB-Q QHS 11/18/18 02/14/19 1 Day Ago History ~02/13/19 Timolol 0.5% [Timoptic] 1 drops OP BID 11/18/18 02/14/19 02/13/19 History raNITIdine HCl [Zantac] 150 mg PO BID 11/18/18 02/14/19 1 Day Ago History ~02/13/19 Carvedilol [Coreg] 6.25 mg PO BID #60 tablet 11/22/18 02/14/19 02/13/19 Rx Furosemide [Lasix TAB] 20 mg PO BID@0600,1800 #60 tablet 11/22/18 02/14/19 1 Day Ago Rx ~02/13/19 AtorvaSTATin 20 mg PO QHS 02/14/19 02/14/19 2 Days Ago History ~02/12/19 Fluticasone 50 mcg INHALATION DAILY 02/14/19 02/14/19 02/13/19 History Lisinopril 20 mg PO BID 02/14/19 02/14/19 1 Day Ago History ~02/13/19 Acetaminophen [Acetaminophen TAB] 650 mg PO Q4H PRN tablet 02/16/19 Unknown Rx DOXYCYCLINE Hyclate [Vibramycin 100 mg PO BID #10 capsule 02/16/19 Unknown Rx CAP] Insulin Regular, Human [HumuLIN R] 0 units SUB-Q ACHS #10 units 02/16/19 Unknown Rx Nicotine [Habitrol] 14 mg TD QDAY #14 patch 02/16/19 Unknown Rx cephALEXin [Keflex] 250 mg PO Q12H #10 capsule 02/16/19 Unknown Rx hydrALAZINE [Apresoline TAB] 50 mg PO Q8HR tablet 02/16/19 Unknown Rx Active Medications: Generic Name Dose Route Start Last Admin Trade Name Freq PRN Reason Stop Dose Admin Acetaminophen 650 mg 02/14/19 05:16 02/16/19 05:41 Tylenol PO 650 mg Q4H PRN Administration Pain MILD(1-3)/Fever >100.5/YI Atorvastatin Calcium 20 mg 02/14/19 22:00 02/15/19 22:47 Lipitor PO 20 mg QHS ANJELICA Administration Carvedilol 6.25 mg 02/14/19 10:00 02/15/19 22:46 Coreg PO 6.25 mg BID ANJELICA Administration Cephalexin 250 mg 02/15/19 13:00 02/16/19 00:36 Keflex PO 02/19/19 23:59 250 mg Q12H ANJELICA Administration Dextrose 50 ml 02/14/19 05:27 D50w (25gm) Syringe IV PRN PRN Hypoglycemia Docusate Sodium 100 mg 02/14/19 10:00 02/15/19 22:46 Colace PO 100 mg BID ANJELICA Administration Doxycycline Hyclate 100 mg 02/15/19 13:00 02/15/19 22:45 Vibramycin PO 02/19/19 23:59 100 mg BID ANJELICA Administration Famotidine 20 mg 02/14/19 10:00 02/15/19 09:43 Pepcid PO 20 mg QAM ANJELICA Administration Fluticasone Propionate 50 mcg 02/14/19 10:00 02/15/19 09:54 Flonase NS 50 mcg DAILY [facility] Administration Heparin Sodium (Porcine) 5,000 unit 02/14/19 10:00 02/15/19 22:47 Heparin SUB-Q 5,000 unit Q12HR ANJELICA Administration Hydralazine HCl 10 mg 02/14/19 05:59 02/14/19 17:23 Apresoline IV 10 mg Q4H PRN Administration Blood Pressure Hydralazine HCl 50 mg 02/14/19 10:00 02/16/19 05:36 Apresoline PO 50 mg Q8HR [facility] Administration Insulin Glargine 10 units 02/14/19 22:00 02/15/19 22:59 Lantus SUB-Q 10 units QHS [facility] Administration Insulin Human Regular 0 units 02/14/19 07:30 02/15/19 23:00 Humulin R SUB-Q Not Given ACHS [facility] Protocol Loratadine 10 mg 02/14/19 10:00 02/15/19 09:43 Claritin PO 10 mg DAILY [facility] Administration Nicotine 14 mg 02/14/19 10:00 02/15/19 09:45 Habitrol TD Not Given QDAY [facility] Ondansetron HCl 4 mg 02/14/19 05:16 02/14/19 23:00 Zofran IV 4 mg Q8H PRN Administration Nausea And Vomiting Oxycodone/Acetaminophen 1 tab 02/14/19 05:16 02/15/19 22:55 Percocet 5/325 PO 1 tab Q6H PRN Administration Pain, Moderate (4-6) Sodium Chloride 10 ml 02/14/19 10:00 02/15/19 22:52 Sodium Chloride Flush Syringe 10 Ml IV 10 ml BID ANJELICA Administration Sodium Chloride 10 ml 02/14/19 05:16 Sodium Chloride Flush Syringe 10 Ml IV PRN PRN LINE FLUSH
[2019-02-16] MEDS: HABITROL TD SCH (09:45)
[2019-02-16] MEDS ORDERED: COREG PO SCH (10:00)
[2019-02-16] MEDS: PERCOCET 5/325 PO PRN (11:39)
[2019-02-16 13:25] VITALS: BP 163/84
--- NOTE | 2019-02-16 14:19 | Discharge Summary ---
Providers - Providers Date of Admission: 02/14/19 05:16 Date of discharge: 02/16/19 Attending physician: JUAN MENA 02/14/19 05:16 Consult to Physician [CONS] Routine Comment: Consulting Provider: DENZEL PEREZ Physician Instructions: Reason For Exam: RLE cellulitis possible PAD 02/14/19 05:25 Consult to Physician [CONS] Routine Comment: Consulting Provider: REJI THOMPSON Physician Instructions: Reason For Exam: BATOOL?? CKD 02/14/19 05:27 Consult to Dietitian/Nutrition [CONS] Routine Physician Instructions: Reason For Exam: Reason for Consult: Diet education 02/14/19 05:52 Consult to Physician [CONS] Routine Comment: Consulting Provider: ADWOA HUANG Physician Instructions: Reason For Exam: celluilits of rt lower leg 02/14/19 06:17 Consult to Wound/ET Nurse [CONS] Routine Reason For Exam: wound eval Primary care physician: REBECA RUDD Hospitalization Condition: Stable Hospital course: She had 52-year-old male with a history of hypertension, diabetes, congestive heart failure ejection fraction 30%. PAD left BKA presented with right leg pain and swelling. Patient found to have cellulitis of the right leg. With some ischemia. Patient only has superficial wound. Was treated with dapsone time 1 leg swelling went down pain went down. Disposition: - TO HOME OR SELFCARE - Discharge Diagnoses (1) CRI (chronic renal insufficiency) Status: Acute (2) Cellulitis of right leg Status: Acute Comment: Cellulitis resolving wound much better. Patient will need to follow wound clinic on outpatient in one week. We'll also follow with vascular Dr. perez (3) ARF (acute renal failure) with tubular necrosis Status: Resolved Comment: Q on chronic renal insufficiency was secondary to vasomotor nephropathy. Renal function improved. Will continue renal doses of medications. Avoid nephrotoxic agents. Patient stable for discharge. (4) CHF (congestive heart failure) Status: Acute Qualifiers: Heart failure type: systolic Heart failure chronicity: acute Qualified Code(s): I50.21 - Acute systolic (congestive) heart failure Comment: Well compensated. Not treated this admission. Patient also has ejec tion fraction 30%. Beta paz diuretic when needed. Core Measure Documentation - Palliative Care Palliative Care/ Comfort Measures: Not Applicable - Core Measures Any of the following diagnoses?: heart failure - Heart Failure Discharge Requirements EMILY/ARB for LVSD if EF <40%: Yes Beta paz at discharge: Yes Exam - Constitutional Vitals: Temp Pulse Resp BP Pulse Ox 98.2 F 80 20 163/84 99 02/16/19 11:49 02/16/19 11:49 02/16/19 11:49 02/16/19 13:25 02/16/19 11:49 General appearance: Present: no acute distress, well-nourished - EENT Eyes: Present: PERRL ENT: hearing intact, clear oral mucosa - Neck Neck: Present: supple, normal ROM - Respiratory Respiratory effort: normal Respiratory: bilateral: CTA - Cardiovascular Heart Sounds: Present: S1 & S2. Absent: rub, click - Extremities Extremities: pulses symmetrical, No edema Extremity abnormal: other (left BKA. Right leg cellulitis has resolved. Patient has shallow skin lesion on dorsal aspect of right leg. Minimal drainage. Crease palpable pulses dorsalis pedis.) Peripheral Pulses: within normal limits - Abdominal General gastrointestinal: Present: soft, non-tender, non-distended, normal bowel sounds Male genitourinary: Present: normal - Integumentary Integumentary: Present: clear, warm, dry - Musculoskeletal Musculoskeletal: gait normal, strength equal bilaterally - Psychiatric Psychiatric: appropriate mood/affect, intact judgment & insight - Neurologic Neurologic: CNII-XII intact, moves all extremities Plan Activity: advance as tolerated, avoid flexion Weight Bearing Status: Partial Weight Bearing Diet: diabetic, renal Special Instructions: record daily BP diary, record blood sugar diary Follow up with: REBECA RUDD MD [Primary Care Provider] - 7 Days Prescriptions: Nicotine [Habitrol] 14 mg TD QDAY #14 patch Insulin Regular, Human [HumuLIN R] 0 units SUB-Q ACHS #10 units cephALEXin [Keflex] 250 mg PO Q12H #10 capsule DOXYCYCLINE Hyclate [Vibramycin CAP] 100 mg PO BID #10 capsule
== END 2019-02-16 17:10 | disposition home health service (06) | DRG 682 ==
LOC: ED 21:55 → 3A 02-14 05:16
PROVIDERS: ADMIT Internal Medicine; ATTEND Internal Medicine
DX: N17.0 Acute kidney failure with tubular necrosis (principal); I50.23 Acute on chronic systolic (congestive) heart failure; L03.115 Cellulitis of right lower limb; K21.9 Gastro-esophageal reflux disease without esophagitis; I13.0 Hypertensive heart and chronic kidney disease with heart failure and stage 1 through stage 4 chronic kidney disease, or unspecified chronic kidney disease; E11.22 Type 2 diabetes mellitus with diabetic chronic kidney disease; I27.20 Pulmonary hypertension, unspecified; D50.9 Iron deficiency anemia, unspecified; N18.9 Chronic kidney disease, unspecified; E11.65 Type 2 diabetes mellitus with hyperglycemia; F17.210 Nicotine dependence, cigarettes, uncomplicated; Z71.6 Tobacco abuse counseling; Z89.512 Acquired absence of left leg below knee; Z89.411 Acquired absence of right great toe; Z79.2 Long term (current) use of antibiotics; Z79.899 Other long term (current) drug therapy; Z91.19 Patient's noncompliance with other medical treatment and regimen; Z79.84 Long term (current) use of oral hypoglycemic drugs
CPT/HCPCS: 36415; 71046; 80048; 81001; 82570; 82962; 83036; 83880; 84300; 85025; 85027; 87116; 93922; 93925; 96365; 96375; 99406; G0378; A9270-GY; J0295; J0360; J0878; J1644; J1815; J2405

== ENCOUNTER 2019-08-04 06:11 | Inpatient (IN) | payer MEDICAID ==
--- NOTE | 2019-08-04 07:15 | Emergency Department Report ---
ED General Adult HPI - General Chief complaint: Dyspnea/Respdistress Stated complaint: SHORTNESS OF BREATH Time Seen by Provider: 08/04/19 07:11 Source: patient, EMS Mode of arrival: Stretcher Limitations: No Limitations - History of Present Illness Initial comments: This is a 59-year-old male who states he is compliant with his medication for hypertension and congestive heart failure. However, he complains of right leg pain and swelling. He also has shortness of breath on exertion. He denies fever or chills. He has not been coughing. He has a history of cellulitis and peripheral vascular disease. 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 Per 2019 Discharge summary: She had 52-year-old male with a history of hypertension, diabetes, congestive heart failure ejection fraction 30%. PAD left BKA presented with right leg pain and swelling. Patient found to have cellulitis of the right leg. With some ischemia. Patient only has superficial wound. Was treated with dapsone time 1 leg swelling went down pain went down. Disposition: - TO HOME OR SELFCARE - Discharge Diagnoses (1) CRI (chronic renal insufficiency) Status: Acute (2) Cellulitis of right leg Status: Acute Comment: Cellulitis resolving wound much better. Patient will need to follow wound clinic on outpatient in one week. We'll also follow with vascular Dr. perez (3) ARF (acute renal failure) with tubular necrosis Status: Resolved Comment: Q on chronic renal insufficiency was secondary to vasomotor nephropathy. Renal function improved. Will continue renal doses of medications. Avoid nephrotoxic agents. Patient stable for discharge. (4) CHF (congestive heart failure) Status: Acute -: Gradual Improves with: none Worsens with: other (exertion) - Related Data Home Medications Medication Instructions Recorded Confirmed Last Taken Insulin Glargine [Lantus VIAL] 10 unit SUB-Q QHS 11/18/18 08/04/19 1 Day Ago ~02/13/19 Timolol 0.5% [Timoptic] 1 drops OP BID 11/18/18 08/04/19 02/13/19 AtorvaSTATin 20 mg PO QHS 02/14/19 08/04/19 2 Days Ago ~02/12/19 Aspirin [Aspirin BABY CHEW TAB] 81 mg PO QDAY 08/04/19 08/04/19 Unknown Clopidogrel [Plavix] 75 mg PO QDAY 08/04/19 08/04/19 Unknown Docusate Sodium [Colace] 100 mg PO BID PRN 08/04/19 08/04/19 Unknown Famotidine [Pepcid] 40 mg PO QHS 08/04/19 08/04/19 Unknown Ferrous Sulfate [Feosol] 325 mg PO QDAY 08/04/19 08/04/19 Unknown Torsemide [Demadex] 20 mg PO DAILY 08/04/19 08/04/19 Unknown Torsemide [Demadex] 20 mg PO DAILY 08/04/19 08/04/19 Unknown amLODIPine [Norvasc] 10 mg PO DAILY 08/04/19 08/04/19 Unknown carvediloL [Coreg] 3.125 mg PO BID 08/04/19 08/04/19 Unknown Previous Rx's Medication Instructions Recorded Last Taken Type Insulin Regular, Human [HumuLIN R] 0 units SUB-Q ACHS #10 units 02/16/19 Unknown Rx Allergies Allergy/AdvReac Type Severity Reaction Status Date / Time No Known Allergies Allergy Unverified 05/19/17 19:06 ED Review of Systems ROS: Stated complaint: SHORTNESS OF BREATH Other details as noted in HPI Constitutional: denies: chills, fever Eyes: denies: eye pain, eye discharge, vision change ENT: denies: ear pain, throat pain Respiratory: denies: cough, shortness of breath, wheezing Cardiovascular: dyspnea on exertion, edema. denies: chest pain, palpitations Endocrine: no symptoms reported Gastrointestinal: denies: abdominal pain, nausea, diarrhea Genitourinary: denies: urgency, dysuria Musculoskeletal: as per HPI. denies: back pain, joint swelling, arthralgia Skin: denies: rash, lesions Neurological: denies: headache, weakness, paresthesias Psychiatric: denies: anxiety, depression Hematological/Lymphatic: denies: easy bleeding, easy bruising ED Past Medical Hx - Past Medical History Previous Medical History?: Yes Hx Hypertension: Yes Hx Congestive Heart Failure: Yes Hx Diabetes: Yes Hx GERD: Yes Hx Asthma: No Additional medical history: LLL amputaion,poor vision - Surgical History Past Surgical History?: Yes Additional Surgical History: LLLA Right great toe amputation - Social History Smoking Status: Never Smoker Substance Use Type: None - Medications Home Medications: Home Medications Medication Instructions Recorded Confirmed Last Taken Type Insulin Glargine [Lantus VIAL] 10 unit SUB-Q QHS 11/18/18 08/04/19 1 Day Ago History ~02/13/19 Timolol 0.5% [Timoptic] 1 drops OP BID 11/18/18 08/04/19 02/13/19 History AtorvaSTATin 20 mg PO QHS 02/14/19 08/04/19 2 Days Ago History ~02/12/19 Insulin Regular, Human [HumuLIN R] 0 units SUB-Q ACHS #10 units 02/16/19 08/04/19 Unknown Rx Aspirin [Aspirin BABY CHEW TAB] 81 mg PO QDAY 08/04/19 08/04/19 Unknown History Clopidogrel [Plavix] 75 mg PO QDAY 08/04/19 08/04/19 Unknown History Docusate Sodium [Colace] 100 mg PO BID PRN 08/04/19 08/04/19 Unknown History Famotidine [Pepcid] 40 mg PO QHS 08/04/19 08/04/19 Unknown History Ferrous Sulfate [Feosol] 325 mg PO QDAY 08/04/19 08/04/19 Unknown History Torsemide [Demadex] 20 mg PO DAILY 08/04/19 08/04/19 Unknown History Torsemide [Demadex] 20 mg PO DAILY 08/04/19 08/04/19 Unknown History amLODIPine [Norvasc] 10 mg PO DAILY 08/04/19 08/04/19 Unknown History carvediloL [Coreg] 3.125 mg PO BID 08/04/19 08/04/19 Unknown History ED Physical Exam - General Limitations: No Limitations General appearance: alert, in no apparent distress - Head Head exam: Present: atraumatic, normocephalic - Eye Eye exam: Present: normal appearance. Absent: scleral icterus - ENT ENT exam: Present: mucous membranes moist - Neck Neck exam: Present: normal inspection - Respiratory Respiratory exam: Present: rhonchi, decreased breath sounds (at lung bases). Absent: respiratory distress - Cardiovascular Cardiovascular Exam: Present: regular rate, normal rhythm. Absent: systolic murmur, diastolic murmur, rubs, gallop - GI/Abdominal GI/Abdominal exam: Present: soft, normal bowel sounds. Absent: distended, tenderness, guarding, rebound, rigid - Rectal Rectal exam: Present: deferred - Extremities Exam Extremities exam: Present: pedal edema (to 3+ pedal and leg edema with minimal erythema, pulses are difficult to palpate), other (BKA left) - Back Exam Back exam: Present: normal inspection - Neurological Exam Neurological exam: Present: alert, oriented X3 - Psychiatric Psychiatric exam: Present: normal affect, normal mood - Skin Skin exam: Present: warm, dry, intact, erythema (mild pretibial erythema). Absent: rash ED Course Vital Signs 08/04/19 08/04/19 06:30 06:49 Temperature 97.8 F 97.8 F Pulse Rate 76 76 Respiratory 20 20 Rate Blood Pressure 146/81 Blood Pressure 146/81 [Right] O2 Sat by Pulse 99 99 Oximetry - Reevaluation(s) Reevaluation #1: A venous and arterial Doppler showed no acute findings. Patient does have peripheral vascular disease but no significant stenosis. He was given a dose of Lasix. Nephrology was consult it. He was found to have CHF exacerbation. I think the edema is largely secondary to that. He did have a bit of erythema of his leg and was given Ancef. 08/04/19 15:26 ED Medical Decision Making - Lab Data Result diagrams: 08/04/19 09:58 08/04/19 09:58 Laboratory Results - last 24 hr 08/04/19 08/04/19 08/04/19 09:58 09:58 09:58 WBC 5.4 RBC 4.18 Hgb 10.0 L Hct 30.8 L MCV 74 L MCH 24 L MCHC 32 RDW 19.8 H Plt Count 368 Lymph % (Auto) 33.2 [place] % (Auto) 7.1 Eos % (Auto) 6.7 H Baso % (Auto) 2.6 H Lymph # 1.8 [place] # 0.4 Eos # 0.4 Baso # 0.1 Seg Neutrophils % 50.4 Seg Neutrophils # 2.7 PT 14.9 INR 1.15 H APTT 34.6 Sodium 140 Potassium 4.7 Chloride 105.4 Carbon Dioxide 19 L Anion Gap 20 BUN 38 H Creatinine 3.1 H Estimated GFR 25 BUN/Creatinine Ratio 12 Glucose 226 H Calcium 9.2 Magnesium 2.00 Total Bilirubin 0.20 Direct Bilirubin < 0.2 Indirect Bilirubin 0.0 AST 11 ALT 10 Alkaline Phosphatase 112 Total Creatine Kinase 152 CK-MB (CK-2) 3.7 CK-MB (CK-2) Rel Index 2.4 Troponin T 0.530 H* NT-Pro-B Natriuret Pep 23351 H Total Protein 7.2 Albumin 2.9 L Albumin/Globulin Ratio 0.7 Triglycerides 53 Cholesterol 134 LDL Cholesterol Direct 80 Urine Color Urine Turbidity Urine pH Ur Specific Fischer Urine Protein Urine Glucose (UA) Urine Ketones Urine Blood Urine Nitrite Urine Bilirubin Urine Urobilinogen Ur Leukocyte Esterase Urine WBC (Auto) Urine RBC (Auto) 08/04/19 Unknown WBC RBC Hgb Hct MCV MCH MCHC RDW Plt Count Lymph % (Auto) [place] % (Auto) Eos % (Auto) Baso % (Auto) Lymph # [place] # Eos # Baso # Seg Neutrophils % Seg Neutrophils # PT INR APTT Sodium Potassium Chloride Carbon Dioxide Anion Gap BUN Creatinine Estimated GFR BUN/Creatinine Ratio Glucose Calcium Magnesium Total Bilirubin Direct Bilirubin Indirect Bilirubin AST ALT Alkaline Phosphatase Total Creatine Kinase CK-MB (CK-2) CK-MB (CK-2) Rel Index Troponin T NT-Pro-B Natriuret Pep Total Protein Albumin Albumin/Globulin Ratio Triglycerides Cholesterol LDL Cholesterol Direct Urine Color Yellow Urine Turbidity Clear Urine pH 5.0 Ur Specific Fischer 1.017 Urine Protein 100 mg/dl Urine Glucose (UA) 150 Urine Ketones Neg Urine Blood Sm Urine Nitrite Neg Urine Bilirubin Neg Urine Urobilinogen < 2.0 Ur Leukocyte Esterase Neg Urine WBC (Auto) 2.0 Urine RBC (Auto) 4.0 Critical care attestation.: If time is entered above; I have spent that time in minutes in the direct care of this critically ill patient, excluding procedure time. ED Disposition Clinical Impression: Cellulitis of right leg Acute exacerbation of CHF (congestive heart failure) Qualifiers: Heart failure type: unspecified Qualified Code(s): I50.9 - Heart failure, unspecified Disposition: OP ADMIT IP TO THIS HOSP Is pt being admited?: Yes Does the pt Need Aspirin: Yes Condition: Stable Referrals: PRIMARY CARE, [Referring] - 3-5 Days Time of Disposition: 15:28
--- NOTE | 2019-08-04 07:45 | XRay Report ---
CHEST 1 VIEW INDICATION: Dyspnea. COMPARISON: 02/13/2019 FINDINGS: Support devices: None. Heart: Within normal limits. Lungs/Pleura: Patchy bibasilar airspace disease and small effusions. Additional findings: None. IMPRESSION: 1. Pulmonary findings as above. Signer Name: Drew Escalera MD Signed: 08/04/2019 7:40 AM Workstation Name: [id number]
--- NOTE | 2019-08-04 10:31 | Vascular Lab Report ---
DUPLEX DOPPLER LOWER EXTREMITY VEINS, RIGHT INDICATION / CLINICAL INFORMATION: swollen leg. TECHNIQUE: Duplex doppler imaging was performed through the veins of the right lower extremity using venous comp ression and other maneuvers. COMPARISON: Right lower extremity venous Doppler 02/15/2019 FINDINGS: COMMON FEMORAL VEIN: Negative. FEMORAL VEIN: Negative. POPLITEAL VEIN: Negative. CALF VEINS: Negative to the extent visualized. ADDITIONAL FINDINGS: None. IMPRESSION: 1. No sonographic evidence for DVT in the right lower extremity. Signer Name: Andrey Landrum MD Signed: 08/04/2019 10:26 AM Workstation Name: [id number]
--- NOTE | 2019-08-04 10:34 | Vascular Lab Report ---
DUPLEX DOPPLER LOWER EXTREMITY ARTERIAL, RIGHT INDICATION / CLINICAL INFORMATION: swollen leg h/o PAD. TECHNIQUE: Arterial duplex examination of the right lower extremity performed using B-mode, color flow and spect ral Doppler assessment. FINDINGS: Comparison is made with a bilateral lower extremity arterial Doppler study dated 02/14/2019 RIGHT: Common Femoral Artery: PSV 84 cm/sec. Biphasic waveform. Proximal SFA: PSV 78 cm/sec. Biphasic waveform. Mid SFA: PSV 64 cm/sec. Biphasic waveform. Distal SFA: PSV 56 cm/sec. Triphasic waveform. Popliteal artery: PSV 47 cm/sec. Triphasic waveform. Posterior tibial artery: PSV 35 cm/sec. Biphasic waveform. Anterior tibial Artery: PSV 94 cm/sec. Biphasic waveform. Dorsalis pedis artery: PSV 16 cm/s. Biphasic waveform. IMPRESSION: 1. Overall moderate degree of peripheral atherosclerotic disease in the right lower extremity, witho ut focal stenotic lesion identified. Doppler Waveform: - Triphasic is normal. - Biphasic is abnormal if clear transition from triphasic signal along vascular tree. - Monophasic is abnormal. Signer Name: Andrey Landrum MD Signed: 08/04/2019 10:30 AM Workstation Name: [id number]
[2019-08-04 10:47] LABS: Basophils # (Auto) 0.1 K/mm3 (0.0-0.1); Basophils % (Auto) 2.6 % (0.0-1.8); Eosinophils # (Auto) 0.4 K/mm3 (0.0-0.4); Eosinophils % (Auto) 6.7 % (0.0-4.3); Hematocrit 30.8 % (35.5-45.6); Lymphocytes # (Auto) 1.8 K/mm3 (1.2-5.4); Lymphocytes % (Auto) 33.2 % (13.4-35.0); Mean Corpuscular HGB Conc 32 % (32-34); Mean Corpuscular Volume 74 fl (84-94); Monocytes # (Auto) 0.4 K/mm3 (0.0-0.8); Monocytes % (Auto) 7.1 % (0.0-7.3); Platelet Count 368 K/mm3 (140-440); Red Blood Count 4.18 M/mm3 (3.65-5.03); Red Cell Distribution Width 19.8 % (13.2-15.2)
[2019-08-04 10:48] LABS: Bilirubin,Urine NEG (Negative); Blood,Urine SM (Negative); Color,Urine Yellow (Yellow); Urobilinogen,Urine < 2.0 mg/dL (<2.0)
[2019-08-04 10:57] LABS: Alanine Aminotransferase 10 units/L (7-56); Albumin 2.9 g/dL (3.9-5); BUN/Creatinine Ratio 12; Bilirubin,Direct < 0.2 mg/dL (0-0.2); Blood Urea Nitrogen 38 mg/dL (9-20); Calcium 9.2 mg/dL (8.4-10.2); Hemolysis Index 3
[2019-08-04 10:58] LABS: INR 1.15 (0.87-1.13)
[2019-08-04 10:59] LABS: Partial Thromboplastin Time 34.6 Sec. (24.2-36.6)
[2019-08-04 11:15] LABS: Creatine Kinase MB 3.7 ng/mL (0.0-4.0); LDL Cholesterol,Direct 80 mg/dL (50-130)
[2019-08-04] MEDS ORDERED: FUROSEMIDE 40 MG/4 ML INJ IV ONE ×2 (11:41→11:42)
[2019-08-04] MEDS ORDERED: ceFAZolin/NS 1 GM/50 ML 1 GM/50 ML BAG IV ONE (12:00)
[2019-08-04 12:14] LABS: Chol/HDL Ratio 2.68 %; HDL Cholesterol 50 mg/dL (40-59)
[2019-08-04] MEDS ORDERED: DOCUSATE SODIUM 100 MG CAP PO PRN (14:35)
[2019-08-04] MEDS ORDERED: FUROSEMIDE 40 MG/4 ML INJ ONE (14:39)
[2019-08-04] MEDS ORDERED: FUROSEMIDE 20 MG/2 ML INJ ONE (14:39)
--- NOTE | 2019-08-04 14:41 | History and Physical Report ---
History of Present Illness Date of examination: 08/04/19 Date of admission: 08/04/19 Chief complaint: Shortness of breath Acute exacerbation of chronic systolic congestive heart failure History of present illness: 59-year-old -[place] male patient with significant past medical history of systolic congestive heart failure hypertension chronic kidney disease, hima pheral vascular disease status post left BKA, right first and second toe amputation and type 2 diabetes mellitus, presented to the emergency room with worsening shortness of breath and right lower extremity swelling and pain for the last 3-4 days. Patient denies chest pain no nausea vomiting or abdominal pain Patient denies headache dizziness weakness or numbness Initial workup is consistent with acute exacerbation of CHF with fluid overload Elevated BNP and elevated troponins Past History Past Medical History: diabetes, heart failure, hypertension, hyperlipidemia, renal failure Past Surgical History: Other (toe amputation, BKA) Social history: denies: smoking, alcohol abuse, prescription drug abuse Family history: hypertension Medications and Allergies Allergies Allergy/AdvReac Type Severity Reaction Status Date / Time No Known Allergies Allergy Unverified 05/19/17 19:06 Home Medications Medication Instructions Recorded Confirmed Last Taken Type Insulin Glargine [Lantus VIAL] 10 unit SUB-Q QHS 11/18/18 08/04/19 1 Day Ago History ~02/13/19 Timolol 0.5% [Timoptic] 1 drops OP BID 11/18/18 08/04/19 02/13/19 History AtorvaSTATin 20 mg PO QHS 02/14/19 08/04/19 2 Days Ago History ~02/12/19 Insulin Regular, Human [HumuLIN R] 0 units SUB-Q ACHS #10 units 02/16/19 08/04/19 Unknown Rx Aspirin [Aspirin BABY CHEW TAB] 81 mg PO QDAY 08/04/19 08/04/19 Unknown History Clopidogrel [Plavix] 75 mg PO QDAY 08/04/19 08/04/19 Unknown History Docusate Sodium [Colace] 100 mg PO BID PRN 08/04/19 08/04/19 Unknown History Famotidine [Pepcid] 40 mg PO QHS 08/04/19 08/04/19 Unknown History Ferrous Sulfate [Feosol] 325 mg PO QDAY 08/04/19 08/04/19 Unknown History Torsemide [Demadex] 20 mg PO DAILY 08/04/19 08/04/19 Unknown History Torsemide [Demadex] 20 mg PO DAILY 08/04/19 08/04/19 Unknown History amLODIPine [Norvasc] 10 mg PO DAILY 08/04/19 08/04/19 Unknown History carvediloL [Coreg] 3.125 mg PO BID 08/04/19 08/04/19 Unknown History Review of Systems Constitutional: fatigue, weakness, no weight loss, no weight gain, no fever, no chills Ears, nose, mouth and throat: no nasal congestion, no nasal discharge Cardiovascular: orthopnea, edema, shortness of breath, no chest pain Respiratory: shortness of breath, no cough, no hemoptysis Gastrointestinal: no abdominal pain, no nausea, no vomiting Musculoskeletal: no myalgias, no arthritis Integumentary: no rash, no lesions Neurological: weakness, no seizures, no syncope Psychiatric: no anxiety, no depression Endocrine: no cold intolerance, no heat intolerance Hematologic/Lymphatic: no easy bruising, no easy bleeding Allergic/Immunologic: no urticaria, no allergic rhinitis Exam - Constitutional Vitals: Temp Pulse Resp BP Pulse Ox 97.8 F 76 20 146/81 99 08/04/19 06:49 08/04/19 06:49 08/04/19 06:49 08/04/19 06:49 08/04/19 06:49 General appearance: Present: no acute distress, well-nourished - EENT Eyes: Present: PERRL, EOM intact - Neck Neck: Present: supple, normal ROM - Respiratory Respiratory effort: normal Respiratory: bilateral: diminished, rales, negative: rhonchi, wheezing - Cardiovascular Rhythm: regular Heart Sounds: Present: S1 & S2 - Extremities Extremities: no ischemia, abnormal (left BKA, amputation of first and second toes of right foot) Extremity abnormal: edema - Abdominal General gastrointestinal: Present: soft, non-tender, non-distended, normal bowel sounds - Integumentary Integumentary: Present: clear, warm - Musculoskeletal Musculoskeletal: strength equal bilaterally, generalized weakness - Psychiatric Psychiatric: appropriate mood/affect, cooperative - Neurologic Neurologic: moves all extremities Results - Labs CBC & Chem 7: 08/04/19 09:58 08/04/19 09:58 Labs: Abnormal lab results 08/04/19 08/04/19 08/04/19 Range/Units 09:58 09:58 09:58 Hgb 10.0 L (11.8-15.2) gm/dl Hct 30.8 L (35.5-45.6) % MCV 74 L (84-94) fl MCH 24 L (28-32) pg RDW 19.8 H (13.2-15.2) % Eos % (Auto) 6.7 H (0.0-4.3) % Baso % (Auto) 2.6 H (0.0-1.8) % INR 1.15 H (0.87-1.13) Carbon Dioxide 19 L (22-30) mmol/L BUN 38 H (9-20) mg/dL Creatinine 3.1 H (0.8-1.5) mg/dL Glucose 226 H (75-100) mg/dL Troponin T 0.530 H* (0.00-0.029) ng/mL NT-Pro-B Natriuret Pep 36228 H (0-900) pg/mL Albumin 2.9 L (3.9-5) g/dL Assessment and Plan --Acute on chronic systolic congestive heart failure; Ejection fraction 30-35% Anti-failure medications Input-output monitoring, low sodium diet, fluid extraction Cardiology consult if needed --Non-ST elevation AK; probably secondary to Acute exacerbation of CHF Serial cardiac enzymes, resume cardiac medications Cardiology consult --Type 2 diabetes mellitus; moderate control Accu-Chek sliding scale coverage and ADA diet Insulin as needed --Hypertension; moderate control Resume antihypertensive medications When necessary hydralazine --Dyslipidemia; lipid lowering medications Low-cholesterol diet --Full CODE STATUS --DVT prophylaxis; Lovenox Monitor closely and adjust the management as needed Plan of care reviewed with the patient and his nurse I spent 50 minutes coordinating this admission
[2019-08-04] MEDS ORDERED: FUROSEMIDE 100 MG/10 ML INJ IV ONE (14:46)
[2019-08-04] MEDS: INSULIN REGULAR, HUMAN 100 UNITS/1 ML SUB-Q SCH ×2 (17:52→22:12)
[2019-08-04] MEDS: ACETAMINOPHEN 325 MG TAB PO PRN (18:39)
[2019-08-04] MEDS: carvediloL 6.25 MG TAB PO SCH (22:10)
[2019-08-04] MEDS: INSULIN GLARGINE 100 UNITS/ML SUB-Q SCH (22:11)
[2019-08-05 06:02] LABS: Calcium 8.9 mg/dL (8.4-10.2)
[2019-08-05] MEDS: INSULIN REGULAR, HUMAN 100 UNITS/1 ML SUB-Q SCH ×4 (08:15→22:12)
[2019-08-05] MEDS: FERROUS SULFATE 325 MG TAB PO SCH (10:40)
[2019-08-05] MEDS: CLOPIDOGREL 75 MG TAB PO SCH (10:40)
[2019-08-05] MEDS: ASPIRIN 81 MG TAB CHEW PO SCH (10:40)
[2019-08-05] MEDS: carvediloL 6.25 MG TAB PO SCH ×2 (10:42→22:09)
[2019-08-05] MEDS: amLODIPine 10 MG TAB PO SCH (10:43)
--- NOTE | 2019-08-05 12:44 | Consultation ---
History of Present Illness - Reason for Consult Consult date: 08/05/19 Requesting physician: TRISH AMAYA - History of Present Illness This is a 59 year old male patient with pmh significant for systolic congestive heart failure with an EF of 30-35%, hypertension, peripheral vascular disease, stage 4 chronic kidney disease, type 2 diabetes mellitus. He states he has had diabetes and hypertension "for years". Due to poorly managed diabetes, he had a left BKA approximately six years ago and the first and second toes of the right foot amputated two years ago. He has a left lower extremity prosthetic and ambulates well with this at home. He presented to the ED on 08/04 with complaints of shortness of breath and worsening edema of the right lower extremity for ra roximately 4 days. He denies fevers, chills, chest pain, chest tightness, weakness, nausea, vomiting, diarrhea, abdominal pain, hematuria, and pain or burning with urination. He denies history of kidney stones or frequent urinary tract infections. He has a long family history of kidney disease including both parents and multiple siblings actively on dialysis. He sees a binder stripper hand at [place] but cannot recall the physician's name at this time. He states he has been insulin dependent for years and is noncompliant with ADA diet. In addition, he often runs out of his insulin and is not always able to pay for the refill. He states he is also noncompliant with low salt diet or fluid restrictions required for both CHF and CKD. Denies use of alcohol, drugs, or tobacco. Has been using BC powders daily for a few weeks and was advised that Tylenol is safer for the kidneys and he should discontinue use of BC powders which he agreed to. At time of admission, labs were significant for creatinine 3.1, BNP 10,764, albumin 2.9, and glucose 226. At time of consultation, labs significant for creatinine 3.0, glucose 201. Venous doppler on 08/04 for right lower extremity swelling showed no evidence of DVT. Nephrology was consulted for further evaluation and treatment of CKD. Past History Past Medical History: diabetes, heart failure, hypertension, hyperlipidemia, renal failure Past Surgical History: Other (toe amputation, BKA) Social history: lives with family. denies: smoking, alcohol abuse, prescription drug abuse Family history: hypertension Medications and Allergies Allergies Allergy/AdvReac Type Severity Reaction Status Date / Time No Known Allergies Allergy Unverified 05/19/17 19:06 Home Medications Medication Instructions Recorded Confirmed Last Taken Type Insulin Glargine [Lantus VIAL] 10 unit SUB-Q QHS 11/18/18 08/04/19 1 Day Ago History ~02/13/19 Timolol 0.5% [Timoptic] 1 drops OP BID 11/18/18 08/04/19 02/13/19 History AtorvaSTATin 20 mg PO QHS 02/14/19 08/04/19 2 Days Ago History ~02/12/19 Insulin Regular, Human [HumuLIN R] 0 units SUB-Q ACHS #10 units 02/16/19 08/04/19 Unknown Rx Aspirin [Aspirin BABY CHEW TAB] 81 mg PO QDAY 08/04/19 08/04/19 Unknown History Clopidogrel [Plavix] 75 mg PO QDAY 08/04/19 08/04/19 Unknown History Docusate Sodium [Colace] 100 mg PO BID PRN 08/04/19 08/04/19 Unknown History Famotidine [Pepcid] 40 mg PO QHS 08/04/19 08/04/19 Unknown History Ferrous Sulfate [Feosol] 325 mg PO QDAY 08/04/19 08/04/19 Unknown History Torsemide [Demadex] 20 mg PO DAILY 08/04/19 08/04/19 Unknown History Torsemide [Demadex] 20 mg PO DAILY 08/04/19 08/04/19 Unknown History amLODIPine [Norvasc] 10 mg PO DAILY 08/04/19 08/04/19 Unknown History carvediloL [Coreg] 3.125 mg PO BID 08/04/19 08/04/19 Unknown History Active Meds: Active Medications Acetaminophen (Tylenol) 650 mg PO Q4H PRN PRN Reason: Pain, Mild (1-3) Last Admin: 08/04/19 18:39 Dose: 650 mg Documented by: Amlodipine Besylate (Amlodipine) 10 mg PO DAILY [facility] Last Admin: 08/05/19 10:43 Dose: 10 mg Documented by: Aspirin (Baby Aspirin) 81 mg PO QDAY [facility] Last Admin: 08/05/19 10:40 Dose: 81 mg Documented by: Atorvastatin Calcium (Lipitor) 20 mg PO QHS [facility] Last Admin: 08/04/19 22:10 Dose: 20 mg Documented by: Carvedilol (Coreg) 3.125 mg PO BID [facility] Last Admin: 08/05/19 10:42 Dose: 3.125 mg Documented by: Clopidogrel Bisulfate (Plavix) 75 mg PO QDAY [facility] Last Admin: 08/05/19 10:40 Dose: 75 mg Documented by: Docusate Sodium (Colace) 100 mg PO BID PRN PRN Reason: Constipation Ferrous Sulfate (Feosol) 325 mg PO QDAY [facility] Last Admin: 08/05/19 10:40 Dose: 325 mg Documented by: [facility] Admin: 08/04/19 22:11 Dose: 10 units Documented by: Insulin Human Regular (Humulin R) 0 units SUB-Q [facility]; Protocol Last Admin: 08/05/19 08:15 Dose: 2 units Documented by: Review of Systems Constitutional: no weight loss, no weight gain, no fever, no chills, no sweats, no weakness, no poor appetite Ears, nose, mouth and throat: no nasal discharge, no epistaxis, no dysphagia Cardiovascular: shortness of breath, leg edema (right lower extremity), no chest pain, no syncope Respiratory: shortness of breath, no cough Gastrointestinal: no abdominal pain, no nausea, no vomiting, no diarrhea Genitourinary Male: no dysuria, no hematuria, no urinary frequency, no nocturia, no kidney stones Musculoskeletal: prior amputations (L BKA, right first and second toes) Integumentary: other (right lower extremity h/o PVD (darkened skin, brittle, shiny)), no rash, no pruritis Exam - Vital Signs Vital signs: Vital Signs Temp Pulse Resp BP Pulse Ox 97.8 F 76 20 146/81 99 08/04/19 06:30 08/04/19 06:30 08/04/19 06:30 08/04/19 06:30 08/04/19 06:30 - General Appearance General appearance: well-developed, well-nourished, appears stated age EENT: ATNC, PERRL, mucous membranes moist Neck: Present: neck supple, trachea midline Respiratory: Rales (faint bilaterally), Decreased Breath Sounds (bilateral bases) Heart: regular, normal heart rate, S1S2, no murmurs Gastrointestinal: Present: normal, normoactive bowel sounds Integumentary: no rash, warm and dry, erythema (right lower extremity) Neurologic: no focal deficit, alert and oriented x3 Musculoskeletal: Present: other (3+ edema to right lower extremity/BKA left lower extremity/first and second toes of right foot amputated) Psychiatric: mood/affect appropriate, cooperative Results - Lab Results 08/04/19 09:58 08/05/19 05:13 Most recent lab results Calcium 8.9 mg/dL (8.4-10.2) 08/05/19 05:13 Magnesium 1.90 mg/dL (1.7-2.3) 08/05/19 05:13 Assessment and Plan 1. Chronic kidney disease, Stage 4: Renal function appears to be close to his baseline. Monitor renal function. Avoid nephrotoxic agents. Meds dosage based on GFR. 2. FEN: Metabolic acidosis, monitor. Monitor lytes. 3. Systolic congestive heart failure, decompensated: IV diuretics. EF 30-35%. 4. Hypertension: 5. Type 2 DM: Poorly managed at home. Insulin dependent but often runs out. Noncompliant with ADA diet. H/o multiple amputations.
[2019-08-05] MEDS: ACETAMINOPHEN 325 MG TAB PO PRN ×2 (15:09→22:21)
--- NOTE | 2019-08-05 15:21 | Progress Note ---
Assessment and Plan Assessment and plan: --Acute on chronic systolic congestive heart failure; Ejection fraction 30-35% Anti-failure medications Input-output monitoring, low sodium diet, fluid extraction Cardiology consult if needed --Non-ST elevation CT; probably secondary to Acute exacerbation of CHF Serial cardiac enzymes, resume cardiac medications Cardiology consult --Type 2 diabetes mellitus; moderate control Accu-Chek sliding scale coverage and ADA diet Insulin as needed --Chronic kidney disease stage IV; Monitor renal function and avoid nephrotoxins Nephrology following --Hypertension; moderate control Resume antihypertensive medications When necessary hydralazine --Dyslipidemia; lipid lowering medications Low-cholesterol diet --Full CODE STATUS --DVT prophylaxis; Lovenox Monitor closely and adjust the management as needed Plan of care reviewed with the patient and his nurse I spent 50 minutes coordinating this admission History Interval history: Patient seen and examined medical records reviewed Patient feels slightly better continues to have shortness of breath Denies chest pain Hospitalist Physical - Constitutional Vitals: Temp Pulse Resp BP Pulse Ox 98.0 F 83 16 161/92 95 08/05/19 11:14 08/05/19 11:14 08/05/19 15:09 08/05/19 11:14 08/05/19 11:14 General appearance: Present: no acute distress, well-nourished - EENT Eyes: Present: PERRL, EOM intact - Neck Neck: Present: supple, normal ROM - Respiratory Respiratory effort: normal Respiratory: bilateral: diminished, rales, negative: rhonchi, wheezing - Cardiovascular Rhythm: regular Heart Sounds: Present: S1 & S2 - Extremities Extremities: no ischemia Extremity abnormal: edema - Abdominal General gastrointestinal: soft, non-tender, non-distended, normal bowel sounds - Integumentary Integumentary: Present: clear, warm - Psychiatric Psychiatric: appropriate mood/affect, cooperative - Neurologic Neurologic: CNII-XII intact, moves all extremities Results - Labs CBC & Chem 7: 08/04/19 09:58 08/06/19 04:47 Labs: Laboratory Last Values WBC 5.4 K/mm3 (4.5-11.0) 08/04/19 09:58 RBC 4.18 M/mm3 (3.65-5.03) 08/04/19 09:58 Hgb 10.0 gm/dl (11.8-15.2) L 08/04/19 09:58 Hct 30.8 % (35.5-45.6) L 08/04/19 09:58 MCV 74 fl (84-94) L 08/04/19 09:58 MCH 24 pg (28-32) L 08/04/19 09:58 MCHC 32 % (32-34) 08/04/19 09:58 RDW 19.8 % (13.2-15.2) H 08/04/19 09:58 Plt Count 368 K/mm3 (140-440) 08/04/19 09:58 Lymph % (Auto) 33.2 % (13.4-35.0) 08/04/19 09:58 [place] % (Auto) 7.1 % (0.0-7.3) 08/04/19 09:58 Eos % (Auto) 6.7 % (0.0-4.3) H 08/04/19 09:58 Baso % (Auto) 2.6 % (0.0-1.8) H 08/04/19 09:58 Lymph # 1.8 K/mm3 (1.2-5.4) 08/04/19 09:58 [place] # 0.4 K/mm3 (0.0-0.8) 08/04/19 09:58 Eos # 0.4 K/mm3 (0.0-0.4) 08/04/19 09:58 Baso # 0.1 K/mm3 (0.0-0.1) 08/04/19 09:58 Seg Neutrophils % 50.4 % (40.0-70.0) 08/04/19 09:58 Seg Neutrophils # 2.7 K/mm3 (1.8-7.7) 08/04/19 09:58 PT 14.9 Sec. (12.2-14.9) 08/04/19 09:58 INR 1.15 (0.87-1.13) H 08/04/19 09:58 APTT 34.6 Sec. (24.2-36.6) 08/04/19 09:58 Sodium 144 mmol/L (137-145) 08/05/19 05:13 Potassium 4.7 mmol/L (3.6-5.0) 08/05/19 05:13 Chloride 109.3 mmol/L (98-107) H 08/05/19 05:13 Carbon Dioxide 18 mmol/L (22-30) L 08/05/19 05:13 Anion Gap 21 mmol/L 08/05/19 05:13 BUN 36 mg/dL (9-20) H 08/05/19 05:13 Creatinine 3.0 mg/dL (0.8-1.5) H 08/05/19 05:13 Estimated GFR 26 ml/min 08/05/19 05:13 BUN/Creatinine Ratio 12 % 08/05/19 05:13 Glucose 201 mg/dL (75-100) H 08/05/19 05:13 POC Glucose 184 (70-105) H 08/05/19 11:18 Calcium 8.9 mg/dL (8.4-10.2) 08/05/19 05:13 Magnesium 1.90 mg/dL (1.7-2.3) 08/05/19 05:13 Total Bilirubin 0.20 mg/dL (0.1-1.2) 08/04/19 09:58 Direct Bilirubin < 0.2 mg/dL (0-0.2) 08/04/19 09:58 Indirect Bilirubin 0.0 mg/dL 08/04/19 09:58 AST 11 units/L (5-40) 08/04/19 09:58 ALT 10 units/L (7-56) 08/04/19 09:58 Alkaline Phosphatase 112 units/L (35-129) 08/04/19 09:58 Total Creatine Kinase 152 units/L (55-170) 08/04/19 09:58 CK-MB (CK-2) 3.7 ng/mL (0.0-4.0) 08/04/19 09:58 CK-MB (CK-2) Rel Index 2.4 (0-4) 08/04/19 09:58 Troponin T 0.530 ng/mL (0.00-0.029) H* 08/04/19 09:58 NT-Pro-B Natriuret Pep 50588 pg/mL (0-900) H 08/04/19 09:58 Total Protein 7.2 g/dL (6.3-8.2) 08/04/19 09:58 Albumin 2.9 g/dL (3.9-5) L 08/04/19 09:58 Albumin/Globulin Ratio 0.7 % 08/04/19 09:58 Triglycerides 53 mg/dL (2-149) 08/04/19 09:58 Cholesterol 134 mg/dL (50-199) 08/04/19 09:58 LDL Cholesterol Direct 80 mg/dL (50-130) 08/04/19 09:58 HDL Cholesterol 50 mg/dL (40-59) 08/04/19 09:58 Cholesterol/HDL Ratio 2.68 % 08/04/19 09:58 Urine Color Yellow (Yellow) 08/04/19 Unknown Urine Turbidity Clear (Clear) 08/04/19 Unknown Urine pH 5.0 (5.0-7.0) 08/04/19 Unknown Ur Specific [place] 1.017 (1.003-1.030) 08/04/19 Unknown Urine Protein 100 mg/dl mg/dL (Negative) 08/04/19 Unknown Urine Glucose (UA) 150 mg/dL (Negative) 08/04/19 Unknown Urine Ketones Neg mg/dL (Negative) 08/04/19 Unknown Urine Blood Sm (Negative) 08/04/19 Unknown Urine Nitrite Neg (Negative) 08/04/19 Unknown Urine Bilirubin Neg (Negative) 08/04/19 Unknown Urine Urobilinogen < 2.0 mg/dL (<2.0) 08/04/19 Unknown Ur Leukocyte Esterase Neg (Negative) 08/04/19 Unknown Urine WBC (Auto) 2.0 /HPF (0.0-6.0) 08/04/19 Unknown Urine RBC (Auto) 4.0 /HPF (0.0-6.0) 08/04/19 Unknown Active Medications - Current Medications Current Medications: Generic Name Dose Route Start Last Admin Trade Name Freq PRN Reason Stop Dose Admin Acetaminophen 650 mg 08/04/19 18:24 08/05/19 15:09 Tylenol PO 650 mg Q4H PRN Administration Pain, Mild (1-3) Amlodipine Besylate 10 mg 08/05/19 10:00 08/05/19 10:43 Amlodipine PO 10 mg DAILY ANJELICA Administration Aspirin 81 mg 08/05/19 10:00 08/05/19 10:40 Baby Aspirin PO 81 mg QDAY ANJELICA Administration Atorvastatin Calcium 20 mg 08/04/19 22:00 08/04/19 22:10 Lipitor PO 20 mg QHS ANJELICA Administration Carvedilol 3.125 mg 08/04/19 22:00 08/05/19 10:42 Coreg PO 3.125 mg BID ANJELICA Administration Clopidogrel Bisulfate 75 mg 08/05/19 10:00 08/05/19 10:40 Plavix PO 75 mg QDAY ANJELICA Administration Docusate Sodium 100 mg 08/04/19 14:35 Colace PO BID PRN Constipation Ferrous Sulfate 325 mg 08/05/19 10:00 08/05/19 10:40 Feosol PO 325 mg QDAY ANJELICA Administration Insulin Glargine 10 units 08/04/19 22:00 08/04/19 22:11 Lantus SUB-Q 10 units QHS ANJELICA Administration Insulin Human Regular 0 units 08/04/19 16:30 08/05/19 08:15 Humulin R SUB-Q 2 units ACHS ANJELICA Administration Protocol
[2019-08-05 18:22] LABS: Creatinine,Urine 211.8 mg/dL (0.1-20.0)
[2019-08-05] MEDS: INSULIN GLARGINE 100 UNITS/ML SUB-Q SCH (22:20)
[2019-08-06 06:31] LABS: Calcium 8.8 mg/dL (8.4-10.2)
--- NOTE | 2019-08-06 07:28 | Progress Note ---
Assessment and Plan 1. Chronic kidney disease, Stage 4: Renal function appears to be close to his baseline. Monitor renal function. Creatinine remains stable at 3.0, which is close to his baseline. Avoid nephrotoxic agents. Meds dosage based on GFR. 2. FEN: Metabolic acidosis, monitor. Monitor lytes. 3. Systolic congestive heart failure, decompensated: IV diuretics. EF 30-35%. 4. Hypertension: 5. Type 2 DM: Poorly managed at home. Insulin dependent but often runs out. Noncompliant with ADA diet. H/o multiple amputations. Subjective Date of service: 08/06/19 Interval history: Patient was seen and examined at the bedside. He is in good spirits today and has no complaints. He states he was told he would go home today. Objective - Exam Narrative Exam: Constitutional: no weight loss, no weight gain, no fever, no chills, no sweats, no weakness, no poor appetite Ears, nose, mouth and throat: no nasal discharge, no epistaxis, no dysphagia Cardiovascular: shortness of breath, leg edema (right lower extremity), no chest pain, no syncope Respiratory: shortness of breath, no cough Gastrointestinal: no abdominal pain, no nausea, no vomiting, no diarrhea Genitourinary Male: no dysuria, no hematuria, no urinary frequency, no nocturia, no kidney stones Musculoskeletal: prior amputations (L BKA, right first and second toes) Integumentary: other (right lower extremity h/o PVD (darkened skin, brittle, shiny)), no rash, no pruritis - Vital Signs Vital signs: Vital Signs - 12hr 08/05/19 08/05/19 08/06/19 19:54 23:10 00:00 Temperature 98.2 F 98.0 F Pulse Rate 80 82 75 Respiratory 18 18 Rate Blood Pressure 147/83 147/81 O2 Sat by Pulse 96 99 Oximetry 08/06/19 04:24 Temperature 98.0 F Pulse Rate 76 Respiratory 18 Rate Blood Pressure 138/76 O2 Sat by Pulse 99 Oximetry - Lab 08/04/19 09:58 08/06/19 04:47 Most recent lab results Calcium 8.8 mg/dL (8.4-10.2) 08/06/19 04:47 Phosphorus 4.10 mg/dL (2.5-4.5) 08/06/19 04:47 Magnesium 1.90 mg/dL (1.7-2.3) 08/05/19 05:13 Urine Creatinine 211.8 mg/dL (0.1-20.0) H 08/05/19 Unknown Urine Sodium 41 mmol/L 08/05/19 Unknown Medications & Allergies - Medications Allergies/Adverse Reactions: Allergies No Known Allergies Allergy (Unverified 05/19/17 19:06) Home Medications: Home Medications Medication Instructions Recorded Confirmed Last Taken Type Insulin Glargine [Lantus VIAL] 10 unit SUB-Q QHS 11/18/18 08/04/19 1 Day Ago History ~02/13/19 Timolol 0.5% [Timoptic] 1 drops OP BID 11/18/18 08/04/19 02/13/19 History AtorvaSTATin 20 mg PO QHS 02/14/19 08/04/19 2 Days Ago History ~02/12/19 Insulin Regular, Human [HumuLIN R] 0 units SUB-Q ACHS #10 units 02/16/19 08/04/19 Unknown Rx Aspirin [Aspirin BABY CHEW TAB] 81 mg PO QDAY 08/04/19 08/04/19 Unknown History Clopidogrel [Plavix] 75 mg PO QDAY 08/04/19 08/04/19 Unknown History Docusate Sodium [Colace] 100 mg PO BID PRN 08/04/19 08/04/19 Unknown History Famotidine [Pepcid] 40 mg PO QHS 08/04/19 08/04/19 Unknown History Ferrous Sulfate [Feosol] 325 mg PO QDAY 08/04/19 08/04/19 Unknown History Torsemide [Demadex] 20 mg PO DAILY 08/04/19 08/04/19 Unknown History Torsemide [Demadex] 20 mg PO DAILY 08/04/19 08/04/19 Unknown History amLODIPine [Norvasc] 10 mg PO DAILY 08/04/19 08/04/19 Unknown History carvediloL [Coreg] 3.125 mg PO BID 08/04/19 08/04/19 Unknown History Active Medications: Generic Name Dose Route Start Last Admin Trade Name Freq PRN Reason Stop Dose Admin Acetaminophen 650 mg 08/04/19 18:24 08/05/19 22:21 Tylenol PO 650 mg Q4H PRN Administration Pain, Mild (1-3) Amlodipine Besylate 10 mg 08/05/19 10:00 08/05/19 10:43 Amlodipine PO 10 mg DAILY ANJELICA Administration Aspirin 81 mg 08/05/19 10:00 08/05/19 10:40 Baby Aspirin PO 81 mg QDAY ANJELICA Administration Atorvastatin Calcium 20 mg 08/04/19 22:00 08/05/19 22:08 Lipitor PO 20 mg QHS ANJELICA Administration Carvedilol 3.125 mg 08/04/19 22:00 08/05/19 22:09 Coreg PO 3.125 mg BID ANJELICA Administration Clopidogrel Bisulfate 75 mg 08/05/19 10:00 08/05/19 10:40 Plavix PO 75 mg QDAY ANJELICA Administration Docusate Sodium 100 mg 08/04/19 14:35 Colace PO BID PRN Constipation Ferrous Sulfate 325 mg 08/05/19 10:00 08/05/19 10:40 Feosol PO 325 mg QDAY ANJELICA Administration Insulin Glargine 10 units 08/04/19 22:00 08/05/19 22:20 Lantus SUB-Q 10 units QHS ANJELICA Administration Insulin Human Regular 0 units 08/04/19 16:30 08/05/19 22:12 Humulin R SUB-Q Not Given ACHS [facility] Protocol
[2019-08-06] MEDS: INSULIN REGULAR, HUMAN 100 UNITS/1 ML SUB-Q SCH ×2 (08:00→12:42)
[2019-08-06 09:42] VITALS: BP 142/75
[2019-08-06] MEDS: CLOPIDOGREL 75 MG TAB PO SCH (09:42)
[2019-08-06] MEDS: FERROUS SULFATE 325 MG TAB PO SCH (09:42)
[2019-08-06] MEDS: ASPIRIN 81 MG TAB CHEW PO SCH (09:43)
[2019-08-06] MEDS: carvediloL 6.25 MG TAB PO SCH (09:43)
[2019-08-06] MEDS: amLODIPine 10 MG TAB PO SCH (09:43)
[2019-08-06] MEDS: ACETAMINOPHEN 325 MG TAB PO PRN (09:49)
--- NOTE | 2019-08-06 13:40 | Discharge Summary ---
Providers - Providers Date of Admission: 08/04/19 14:43 Date of discharge: 08/06/19 Attending physician: DEJA HAYNES 08/04/19 12:04 Consult to Physician [CONS] Urgent Comment: Consulting Provider: REJI THOMPSON Physician Instructions: Reason For Exam: CRF CHF Primary care physician: MAGED RIVERA Hospitalization Condition: Stable Disposition: DC-01 TO HOME OR SELFCARE Time spent for discharge: 32 min Core Measure Documentation - Palliative Care Palliative Care/ Comfort Measures: Not Applicable - Core Measures Any of the following diagnoses?: heart failure - Heart Failure Discharge Requirements EMILY/ARB for LVSD if EF <40%: No Reason for no EMILY/ARB: Renal impairment Beta paz at discharge: Yes Exam - Constitutional Vitals: Temp Pulse Resp BP Pulse Ox 98.0 F 81 15 142/75 95 08/06/19 04:24 08/06/19 09:43 08/06/19 09:49 08/06/19 09:43 08/06/19 09:32 Plan Activity: advance as tolerated, fall precautions Diet: other (cardiac diet) Additional Instructions: Advised to f/u with [place] [facility] [employer] and Client Support Administrator per schedule. Advised to comply with medications,diet and f/u visits Follow up with: PRIMARY CARE, [Referring] - 3-5 Days Prescriptions: Famotidine [Pepcid] 40 mg PO QHS #30
[2019-08-06] MEDS ORDERED: carvediloL 3.125 MG TAB PO SCH (22:00)
== END 2019-08-06 15:45 | disposition home or self-care (01) | DRG 280 ==
LOC: ED 06:11 → 4A 14:43
PROVIDERS: ADMIT Internal Medicine; ATTEND Internal Medicine
DX: I21.4 Non-ST elevation (NSTEMI) myocardial infarction (principal); I50.23 Acute on chronic systolic (congestive) heart failure; N17.0 Acute kidney failure with tubular necrosis; I13.0 Hypertensive heart and chronic kidney disease with heart failure and stage 1 through stage 4 chronic kidney disease, or unspecified chronic kidney disease; N18.4 Chronic kidney disease, stage 4 (severe); E87.2 Acidosis; E11.22 Type 2 diabetes mellitus with diabetic chronic kidney disease; E78.5 Hyperlipidemia, unspecified; E11.51 Type 2 diabetes mellitus with diabetic peripheral angiopathy without gangrene; K21.9 Gastro-esophageal reflux disease without esophagitis; L03.115 Cellulitis of right lower limb; Z89.429 Acquired absence of other toe(s), unspecified side; Z91.14 Patient's other noncompliance with medication regimen; Z82.49 Family history of ischemic heart disease and other diseases of the circulatory system; Z79.4 Long term (current) use of insulin; Z79.82 Long term (current) use of aspirin; Z79.899 Other long term (current) drug therapy; Z89.512 Acquired absence of left leg below knee
CPT/HCPCS: 36415; 71045; 80048; 80061; 80076; 81001; 82550; 82553; 82570; 82962; 83735; 83880; 84100; 84300; 84484; 85025; 85610; 85730; 87116; 93005; 93010; G0378; A9270-GY; J0690; J1815; J1940